=== PATIENT | male | born 1975 | race Caucasian/White ===

== ENCOUNTER 2020-01-26 16:29 | Emergency (ER) | payer OTHER, SELFPAY ==
--- NOTE | ~2020-01-26 | XR_ITS ---
EXAMINATION: XR knee RT min 4V DATE: 01/26/2020 17:12 INDICATION: Right knee pain, erythema and swelling TECHNIQUE: Anteroposterior, 2 oblique and crosstable lateral views of the right knee were obtained COMPARISON: None. FINDINGS: Alignment is normal. No fracture. No joint effusion/layering lipohemarthrosis. Prominent prepatellar soft tissue swelling. No soft tissue gas or radiopaque foreign bodies. No cortical erosions or perio steal reaction. IMPRESSION: 1. Prominent prepatellar soft tissue swelling of indeterminate etiology. No joint effusion or osseous abnormality. Reviewed, dictated and finalized at location A. IMPRESSION: 1. Prominent prepatellar soft tissue swelling of indeterminate etiology. No diego nt effusion or osseous abnormality.
--- NOTE | ~2020-01-26 | XR_ITS ---
EXAMINATION: XR hand RT min 3V DATE: 01/26/2020 17:12 INDICATION: Proximal anterior right hand pain with laceration TECHNIQUE: Posteroanterior, oblique and lateral views of the right hand were obtained. COMPARISON: Right third digit radiographs dated 10/09/2012 FINDINGS: There is extension of the fifth metacarpophalangeal joint and flexion at the fifth proximal interphal angeal joint which could be either positional or secondary to old trauma with similar alignment seen on the prior radiographs. Alignment is otherwise normal. No fracture. Joint spaces are normal. Mild s oft tissue swelling dorsal to the third metacarpophalangeal joint. No radiopaque foreign bodies. IMPRESSION: 1. No fracture or radiopaque foreign body. Reviewed, dictated and finalized at location A.
[2020-01-26 16:33] VITALS: BP 126/83; PULSE 90; RESP 16; TEMP 35.4; O2SAT 99
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
[2020-01-26 17:38] VITALS: BP 120/88; PULSE 70; RESP 12; TEMP 36.6; O2SAT 98
[2020-01-26] MEDS: KETOROLAC 30 MG/ML VIAL (*BKC) IV PUSH (17:54)
[2020-01-26 18:06] LABS: Basophils Percent Auto 0.6 % (0.2-1.2); Eosinophils Absolute Auto 0.1 K/mm3 (0-0.3); Eosinophils Percent Auto 1.6 % (0-4.4); Hemoglobin 13.8 g/dL (14.0-18.0); Immature Granulocyte Absolute 0.02 K/mm3 (0.00-0.031); Immature Granulocyte Percent A 0.4 % (0-0.5); Immature Platelet Fraction Pct 6.3 % (0.9-11.2); Lymphocytes Absolute Auto 1.06 K/mm3 (0.9-3.2); Lymphocytes Percent Auto 20.7 % (18.3-44.2); Mean Corpuscular HGB Conc 34.5 g/dl (32-36); Mean Corpuscular Hemoglobin 34.7 pg (26-34); Mean Corpuscular Volume 100.5 fl (80-100); Mean Platelet Volume 10.6 fl (7.4-10.4); Monocytes Absolute Auto 0.5 K/mm3 (0.1-0.6); Monocytes Percent Auto 9.6 % (2.6-8.5); Neutrophils Absolute Auto 3.4 K/mm3 (1.3-6.7); Neutrophils Percent Auto 67.1 % (45.5-73.1); Platelet Count Result 138 k/mm3 (150-375); Red Blood Count 3.98 M/mm3 (4.6-6.20); Red Cell Distribution Width 11.3 % (11.5-14.5); White Blood Count 5.1 K/mm3 (4.5-10.0)
[2020-01-26 18:18] LABS: Anion Gap 12 mmol/L (8-16); Blood Urea Nitrogen 14 mg/dL (9-20); CRP 2.4 mg/dL (<1.0); Carbon Dioxide 30 mmol/L (22-30); Chloride 94 mmol/L (98-107); Estimated CRCL calculation 126 ml/min; Estimated Glomerular Filt Rate > 60; Glucose 116 mg/dL (75-110); Potassium 3.1 mmol/L (3.4-5.0); Sodium 136 mmol/L (137-145)
[2020-01-26 18:38] LABS: Erythrocyte Sedimentation Rate 11 mm/hr (0-20)
[2020-01-26] MEDS: POTASSIUM CHLORIDE 20 MEQ TABLET 40 MEQ PO (18:50)
--- NOTE | 2020-01-26 19:15 | PC.NURSE ---
Assumed care of pt at this time. report from RUBY [place]
[2020-01-26 19:30] VITALS: BP 134/88; PULSE 88; RESP 17; O2SAT 99
[2020-01-26] MEDS: SILVER SULFADIAZINE 1% CR 50 GM JAR (*BKC) 1 APPLIC TOPICAL (19:49)
[2020-01-26 21:00] VITALS: BP 133/82; PULSE 90; RESP 19; O2SAT 97
== END 2020-01-26 21:00 | disposition home or self-care (01) ==
PROVIDERS: Physician Assistant; Emergency Provider Emergency Medicine; PCP Emergency Medicine
DX: M70.41 Prepatellar bursitis, right knee (principal)
CPT/HCPCS: 36415; 73130; 73564; 80048; 85025; 85055; 85652; 86140; 96365; 96375; 99284; A9270; J0696; J1885

== ENCOUNTER 2020-04-17 13:40 | Emergency (ER) | payer OTHER, SELFPAY ==
[2020-04-17] VITALS (11 sets, daily range): BP systolic 136; BP diastolic 86–110; PULSE 84–120; RESP 10–32; TEMP 36.1; O2SAT 77–100
--- NOTE | ~2020-04-17 | CT_ITS ---
EXAMINATION: CT brain wo con EXAM DATE: 04/17/2020 14:02 INDICATION: Seizure . Confusion. Facial abrasion. TECHNIQUE: Spiral CT of the head was performed without contrast. Axial, coronal and sagittal images were reviewed. The dose-length product (DLP) for this examination was 605.33 mGy-cm. The exposure w as tailored according to patient size, and iterative reconstruction (ASIR) was used as additional dos e reduction technique. There is no prior study for comparison. FINDINGS: There is no acute intraparenchymal hemorrhage. No evidence of intraparenchymal brain mass lesion. No evidence of acute infarction. There is no mass effect or midline shift. The ventricles are normal in size. There are no extra-axial collections. There are no acute calvarial fractures. T he orbits are unremarkable. Soft tissue is unremarkable. The visualized sinuses and mastoid air lupis ls are well aerated. IMPRESSION: 1. No acute intracranial findings. Reviewed, dictated and finalized at location A. [employer]IVE SERVICE TECHNICIAN
--- NOTE | 2020-04-17 13:48 | ED.SEIZURE ---
HPI - Seizure General Chief Complaint: Altered Mental Status Stated Complaint: combative History of Present Illness HPI Narrative: 44 yo male w/ h/o seizures presents to the ED for seizures. He reportedly had 2 witnessed seizures throughout the course of the day. Each one was proceded by him snorting methamphetamine. He also reports that he has not slept or eaten in days. He has a h/o seizures which his PCP is treating with CBD oil. He has never seen a neurologist. During his seizures today he did hit his head and has multiple painful swollen and bruised areas. When EMS arrived he was confused and combative. Related Data Allergies Allergy/AdvReac Type Severity Reaction Status Date / Time Penicillins Allergy Intermediate Unknown Verified 04/17/20 14:02 Review of Systems Review of Systems: All systems reviewed & are unremarkable except as noted in HPI and below Constitutional: Constitutional: Denies fever(s) and Denies weakness Eyes: Eyes: Denies change in vision ENT: Denies sore throat Cardiovascular: Cardiovascular: Denies chest pain Respiratory: Respiratory: Denies dyspnea Gastrointestinal: Gastrointestinal: Denies abdominal pain and Denies nausea Musculoskeletal: Musculoskeletal: Denies back pain Neurologic: Denies dizziness, Reports headache(s) and Denies weakness Psychiatric: Psychiatric: Denies depression [facility] Past Medical History Medical History (Updated 04/23/20 @ 13:07 by Valdemar Zimmerman MD) Seizure Family History Family History (Updated 06/10/18 @ 00:00 by CONVUSER A) Mother Depression Family history of type 2 diabetes mellitus Social History Social History (Updated 01/26/20 @ 17:01 by Huong Cordova PA-C) Smoking status: Current every day smoker Substance use: current Substance use type: marijuana Exam Const: General: no acute distress and alert Nutritional Appearance: thin Orientation/consciousness: patient oriented x3 HENMT: Head: contusion (Multiple) Ears: TM's normal bilaterally Eyes: Conjunctivae: conjunctivae normal Pupils: Equal, round and reactive pupils present EOM: EOMs intact bilaterally Neck: Neck: normal visual inspection Resp: Effort & Inspection: normal respiratory effort Auscultation: clear to auscultation bilaterally Cardio: Rate: tachycardic Rhythm: regular rhythm GI: GI Palp: Yes Soft to palpation and No Tenderness to palpation present (GI) Back/Spine/Pelvis: Other: nontender Skin: Wounds: no wounds Neuro: General: patient oriented x3, moves all extremities, no meningeal signs, no focal motor deficits and CN's II-XI intact bilaterally Cranial nerves: Yes Nystagmus not present Speech: normal speech Gait exam (Neuro): Normal gait present Extrem: General: normal to inspection Psych: Mental Status: mental status grossly normal Affect: normal affect Attitude: cooperative Thought content: Yes Normal thought content present Course Vital Signs Vital signs: Vital Signs Pulse Rate 119 H 04/17/20 13:51 Respiratory Rate 17 04/17/20 13:51 Pulse Oximetry 77 L 04/17/20 13:51 Temperature 36.1 C L 04/17/20 13:56 Pulse Rate 84 04/17/20 15:43 Respiratory Rate 10 L 04/17/20 15:43 Blood Pressure 136/86 04/17/20 15:43 Pulse Oximetry 100 04/17/20 15:43 MDM - Seizure MDM Narrative Medical decision making narrative: He had multiple factors lowering his seizure threshhold which I discussed with him. I loaded him with Keppra and discussed these case with Dr. Mata. He agrees with continuing the Keppra and having him follow-up in clinic. Differential Diagnosis Differential diagnosis: Likely generalized seizure and epileptic seizure Medical Records Attestation: I reviewed the patient's medical records. Lab Data Attestation: I reviewed the patient's lab results. Result diagrams: 04/17/20 14:15 04/17/20 14:15 Labs: Lab Results 04/17/20 04/17/20 04/17/20 Range/Units 14:15 14:15 14:1
[2020-04-17] MEDS: levETIRAcetam 1000MG/NACL100ML 1,000 MG/100 ML BAG 400 MG IVPB (14:19)
[2020-04-17] MEDS: SODIUM CHLORIDE 0.9% IV 1,000 ML 999 ML IV CONT (14:19)
[2020-04-17 14:25] LABS: Basophils Percent Auto 0.4 % (0.2-1.2); Eosinophils Percent Auto 0.2 % (0-4.4); Hematocrit 39.5 % (42.0-52.0); Hemoglobin 14.1 g/dL (14.0-18.0); Immature Granulocyte Absolute 0.01 K/mm3 (0.00-0.031); Immature Granulocyte Percent A 0.2 % (0-0.5); Immature Platelet Fraction Pct 7.9 % (0.9-11.2); Lymphocytes Absolute Auto 0.59 K/mm3 (0.9-3.2); Lymphocytes Percent Auto 11.8 % (18.3-44.2); Mean Corpuscular HGB Conc 35.7 g/dl (32-36); Mean Corpuscular Hemoglobin 34.6 pg (26-34); Mean Corpuscular Volume 96.8 fl (80-100); Mean Platelet Volume 10.4 fl (7.4-10.4); Monocytes Absolute Auto 0.5 K/mm3 (0.1-0.6); Monocytes Percent Auto 9.6 % (2.6-8.5); Neutrophils Absolute Auto 3.9 K/mm3 (1.3-6.7); Neutrophils Percent Auto 77.8 % (45.5-73.1); Platelet Count Result 93 k/mm3 (150-375); Red Blood Count 4.08 M/mm3 (4.6-6.20); Red Cell Distribution Width 12.8 % (11.5-14.5)
[2020-04-17 14:32] LABS: INR 1.1; Prothrombin Time 14.5 Seconds (11.1-14.7)
[2020-04-17 14:33] LABS: Partial Thromboplastin Time 27.4 SECONDS (22.3-36.8)
[2020-04-17 14:35] LABS: Alanine Aminotransferase 114 U/L (4-50); Albumin Level 4.8 g/dL (3.5-5.1); Alkaline Phosphatase 90 U/L (38-126); Anion Gap 13 mmol/L (8-16); Aspartate Amino Transferase 156 U/L (17-59); Bilirubin,Total 2.1 mg/dL (0.2-1.3); Blood Urea Nitrogen 14 mg/dL (9-20); Carbon Dioxide 29 mmol/L (22-30); Chloride 94 mmol/L (98-107); Estimated CRCL calculation 107 ml/min; Estimated Glomerular Filt Rate > 60; Glucose 103 mg/dL (75-110); Sodium 136 mmol/L (137-145)
[2020-04-17 15:49] LABS: Add Urine Microscopic? YES; Appearance Urine Clear (Clear); Bacteria Urine Trace /hpf; Bilirubin Urine Negative (Negative); Blood Urine Negative (Negative); Color Urine Amber (Yellow); Glucose Urine UA Negative (Negative); Ketones Urine 1+ mg/dL (Negative); Leukocyte Esterase Ur Negative LEU/UL (Negative); Mucus Urine Moderate /lpf; Nitrate Urine Negative (Negative); Protein Urine 2+ mg/dL (Negative); Specific Grav Ur 1.026 (1.001-1.035); WBC Urine 16-20 /hpf
[2020-04-17 16:02] LABS: Barbiturate Screen Urine Negative (Negative); Benzodiazepines Screen Urine Negative (Negative)
[2020-04-17 16:05] LABS: Cannabinoid Screen Urine Positive (Negative); Cocaine Screen Urine Negative (Negative); Methadone Screen Urine Negative (Negative); Opiate Screen Urine Negative (Negative); Phencyclidine Screen Urine Negative (Negative)
[2020-04-17 16:23] LABS: Amphetamine Screen Urine Positive (Negative)
== END 2020-04-17 17:22 | disposition home or self-care (01) ==
PROVIDERS: Emergency Provider Emergency Medicine; PCP Emergency Medicine
DX: R56.9 Unspecified convulsions (principal); F17.200 Nicotine dependence, unspecified, uncomplicated; F15.90 Other stimulant use, unspecified, uncomplicated
CPT/HCPCS: 36415; 70450; 80053; 80307; 81001; 85025; 85055; 85610; 85730; 87086; 87088; 96365; 99284; J1953; J7030

== ENCOUNTER 2020-07-29 17:44 | Emergency (ER) | payer OTHER, SELFPAY ==
[2020-07-29 17:50] VITALS: BP 176/126; PULSE 136; RESP 28; TEMP 36.4; O2SAT 100
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
[2020-07-29 18:17] VITALS: BP 128/74; PULSE 84; RESP 17; O2SAT 99
[2020-07-29 18:40] VITALS: BP 136/70; PULSE 84; RESP 17; O2SAT 98
== END 2020-07-29 18:30 | disposition left against medical advice (07) ==
PROVIDERS: Emergency Provider Emergency Medicine; PCP Emergency Medicine
DX: T40.2X1A Poisoning by other opioids, accidental (unintentional), initial encounter (principal); F17.200 Nicotine dependence, unspecified, uncomplicated
CPT/HCPCS: 99281

== ENCOUNTER 2020-08-19 02:50 | Emergency (ER) | payer OTHER, SELFPAY ==
[2020-08-19 02:49] VITALS: BP 126/91; PULSE 100; RESP 15; TEMP 37.3; O2SAT 97
[2020-08-19 02:55] VITALS: BP 126/91; PULSE 122; RESP 16; TEMP 37.3; O2SAT 97
--- NOTE | 2020-08-19 02:58 | PC.NURSE ---
Pt presents to ED with complaints of seizure activity. Pt noted to have x1 seizure 0215. Pt states he does not remember what happened. Per ems, pt noted to suddenly begin shaking violently and then tensed up. Pt unsure if he hit his head during seizure. Girlfriend was the witness. Per EMS seizure lasted less than 2 minutes. Pt noted to be alert and oriented x3 and pt states at baseline he is confused. Family presented to ED. Girlfriend states pt has been vomiting all day. States pt was sitting in a recliner at time of onset and denies pt hitting floor or head injury. States activity lasted approx 2-3 minutes. Per girlfriend, pt pcp advised pt to stop taking seizure medications last week and she is unsure as to why. Pt states he was advised to stop seizure medication because it was upsetting his stomach. Adds that pcp was supposed to change med and never did, never contacted him and he has not been able to get in contact with pcp. Pt noted to be alert to baseline per girlfriend. Pt complains of nausea at this time. Vitals are stable and pt in no obvious distress at this time. Call button and personal items within reach. Advised to press call button for assistance.
--- NOTE | 2020-08-19 03:01 | ECG_ITS ---
Measurements Intervals [place] Rate: 109 P: 67 MI: 153 QRS: 49 QRSD: 87 T: 45 QT: 368 QTc: 497 Interpretive Statements SINUS TACHYCARDIA NONSPECIFIC ST & T-WAVE ABNORMALITY- DIIFFUSE LEADS BASELINE ARTIFACT- AVR, AVL, AVF ABNORMAL ECG Electronically Signed On 08-20-2020 7:14:24 CDT by Willem Ballard D.O.
--- NOTE | 2020-08-19 03:05 | PC.NURSE ---
Seizure pads placed when pt arrived to ED>
--- NOTE | 2020-08-19 03:19 | ED.SEIZURE ---
HPI - Seizure General Chief Complaint: Seizure Stated Complaint: seizure Time Seen by Provider: 08/19/20 03:18 Source: patient Mode of arrival: ambulatory Limitations: no limitations History of Present Illness HPI Narrative: Patient is a 44-year-old male brought in by EMS due to seizure, single episode, witnessed by girlfriend, lasted for less than 2 minutes. Girlfriend states that the seizure was generalized, tonic-clonic. Denies any urinary or bowel incontinence. Patient states that he used to take Keppra but his doctor took him off of it. Patient does not want any lab work or radiologic studies done. Patient refused any work-up and wants to go home. Patient is alert and oriented x4. Seizure History: Yes Related Data Allergies Allergy/AdvReac Type Severity Reaction Status Date / Time Penicillins Allergy Intermediate Unknown Verified 07/29/20 17:55 Review of Systems Review of Systems: All systems reviewed & are unremarkable except as noted in HPI and below Constitutional: Constitutional: Denies body ache(s), Denies chills, Denies excessive sweating, Denies fatigue, Denies fever(s), Denies headache(s), Denies lethargy, Denies malaise, Denies weakness and Denies weight loss Eyes: Eyes: Denies blurry vision, Denies change in vision and Denies loss of vision ENT: Denies dizziness, Denies ear discharge, Denies headache(s), Denies lip swelling, Denies epistaxis, Denies nasal congestion, Denies neck pain, Denies throat swelling and Denies tongue swelling Cardiovascular: Cardiovascular: Denies chest pain, Denies chest pain at rest, Denies chest pain with activity, Denies diaphoresis, Denies rapid heart rate, Denies edema, Denies irregular heart rhythm, Denies lightheadedness, Denies palpitations, Denies dyspnea and Denies dyspnea on exertion Respiratory: Respiratory: Denies chest congestion, Denies cough, Denies hemoptysis, Denies dyspnea and Denies dyspnea on exertion Gastrointestinal: Gastrointestinal: Denies abdominal pain, Denies melena, Denies hematochezia, Denies diarrhea, Denies nausea, Denies vomiting and Denies hematemesis Musculoskeletal: Musculoskeletal: Denies abnormal gait, Denies deformity, Denies joint swelling, Denies limited range of motion, Denies neck pain and Denies numbness Neurologic: Denies Abnormal speech present, Denies abnormal gait, Denies confusion, Denies dizziness, Denies headache(s), Denies focal weakness, Denies loss of vision, Denies numbness, Denies Other visual disturbances, Denies Sensory deficit (Neuro) and Denies weakness Psychiatric: Psychiatric: Denies confusion, Denies depression, Denies auditory hallucinations, Denies homicidal ideation and Denies suicidal ideation Endocrine: Endocrine: Denies cold intolerance, Denies excessive sweating, Denies fatigue, Denies heat intolerance and Denies palpitations Hematologic/Lymphatic: Hematologic/Lymphatic: Denies easy bleeding and Denies easy bruising Allergic/Immunologic: Allergic/Immunologic: Denies lip swelling, Denies throat swelling and Denies tongue swelling PMFSH Past Medical History Medical History Seizure Family History Family History Mother Depression Family history of type 2 diabetes mellitus Social History Social History Smoking status: Current every day smoker Substance use: current Substance use type: marijuana and opiates Gender identity (if verbalized by the patient): Male Exam Const: General: cooperative, healthy appearing, comfortable, no acute distress, well developed, alert and awake; No confusion Orientation/consciousness: oriented to person, oriented to place, oriented to time, patient oriented x3 and No confusion Limitations: no limitations HENMT: Head: normal to inspection, normocephalic and atraumatic Ears: hearing grossly normal bilaterally, T
--- NOTE | 2020-08-19 03:19 | PC.NURSE ---
Pt states he wants to leave AMA. EDMD and ED charge notified. EDMD at bedside to advise pt.
[2020-08-19 03:39] VITALS: BP 121/82; PULSE 99; RESP 16; O2SAT 98
[2020-08-19 03:40] VITALS: BP 121/82; PULSE 99; RESP 16; O2SAT 98
== END 2020-08-19 03:40 | disposition left against medical advice (07) ==
PROVIDERS: Emergency Provider Emergency Medicine; PCP Emergency Medicine
DX: R56.9 Unspecified convulsions (principal); F17.200 Nicotine dependence, unspecified, uncomplicated; R00.0 Tachycardia, unspecified; R94.31 Abnormal electrocardiogram [ECG] [EKG]
CPT/HCPCS: 93005; 99283

== ENCOUNTER 2020-08-19 14:26 | Observation (INO) | payer OTHER, SELFPAY ==
[2020-08-19] VITALS (11 sets, daily range): BP systolic 100–132; BP diastolic 79–101; PULSE 72–124; RESP 15–23; TEMP 36.7; O2SAT 97–100; BMI 18.6
--- NOTE | ~2020-08-19 | CT_ITS ---
EXAMINATION: CT brain wo con DATE: 08/19/2020 19:42 INDICATION: Seizure TECHNIQUE: Computed tomography (CT) of the head was performed without intravenous contrast. Sagittal and coronal reconstructions were performed. The mA was adjusted according to patient size. Iterative reconstruction technique was employed. The dose-length product was 681.00 mGy-cm. COMPARISON: head CT dated 04/17/2020 FINDINGS: No acute intracranial hemorrhage, acute infarction or abnormal extra axial fluid collection. Ventricl es are normal and symmetric. No mass/mass effect. The orbits, paranasal sinuses and mastoid air cells are normal. IMPRESSION: 1. No acute intracranial process. Reviewed, dictated and finalized at location A.
--- NOTE | ~2020-08-19 | CT_ITS ---
EXAMINATION: CT abdomen pelvis wo con DATE: 08/20/2020 11:40 INDICATION: Thrombocytopenia TECHNIQUE: Computed tomography (CT) of the abdomen and pelvis was performed without intravenous contr ast. The dose-length product was 284.91 mGy-cm. Automated exposure control and iterative reconstructi on technique were employed. COMPARISON: CT dated 10/12/2011 FINDINGS: Lung bases are unremarkable. Heart size normal. No significant pleural or pericardial effus ion. No significant vascular abnormality. No lymphadenopathy. Fatty infiltration of the liver. Mild enlargement of the liver. Calcified granuloma right middle lobe . The spleen, pancreas, adrenal glands and kidneys are unremarkable. Nonobstructive bowel gas pattern . No lytic or blastic lesions are seen. No acute osseous abnormality. Colonic diverticulosis without evidence for diverticulitis. Gallbladder is mildly distended. IMPRESSION: 1. Hepatomegaly with fatty infiltration of the liver. Reviewed, dictated and finalized at location B.
--- NOTE | 2020-08-19 14:44 | ECG_ITS ---
Measurements Intervals [place] Rate: 86 P: 72 [place]: 163 QRS: -1 QRSD: 108 T: 61 QT: 407 QTc: 488 Interpretive Statements SINUS RHYTHM INCOMPLETE RIGHT BUNDLE BRANCH BLOCK BASELINE ARTIFACT- II, III, AVF BORDERLINE ECG Electronically Signed On 08-19-2020 15:07:33 CDT by Willem Ballard D.O.
--- NOTE | 2020-08-19 15:00 | PC.NURSE ---
Arrives via EMS, s/p x2 days N/V today with diarrhea, recent syncopal -like episodes, concerned and called medics. Pt reports heavy daily drinker and also takes Vicodin, I tried taking a shot today but I couldn't , reports shakes when stopping ETOH. +epigastric discomfort , mild HILL, denies hallucinations, denies skin crawling sensation but I get goosebumps a lot
[2020-08-19 16:09] LABS: Hematocrit 43.7 % (42.0-52.0); Hemoglobin 15.2 g/dL (14.0-18.0); Mean Corpuscular HGB Conc 34.8 g/dl (32-36); Mean Corpuscular Hemoglobin 35.1 pg (26-34); Mean Corpuscular Volume 100.9 fl (80-100); Mean Platelet Volume 11.1 fl (7.4-10.4); Platelet Count Result 43 k/mm3 (150-375); Red Blood Count 4.33 M/mm3 (4.6-6.20)
[2020-08-19 16:39] LABS: Add Urine Microscopic? YES; Appearance Urine Cloudy (Clear); Bacteria Urine Trace /hpf; Bilirubin Urine 2+ (Negative); Blood Urine Negative (Negative); Color Urine Amber (Yellow); Glucose Urine UA Negative (Negative); Ketones Urine Negative (Negative); Leukocyte Esterase Ur Negative LEU/UL (Negative); Mucus Urine Few /lpf; Nitrate Urine Negative (Negative); Protein Urine 3+ mg/dL (Negative); Squamous Epithelial Cell Urine Rare /hpf (Few); WBC Urine 0-3 /hpf
[2020-08-19 16:44] LABS: Band Neutrophils Percent 4 % (0-6); Monocytes Absolute Manual 0.35 K/mm3 (0.1-0.90); Monocytes Percent Manual 7 % (3-9); Neutrophils Absolute Manual 3.85 K/mm3 (1.3-6.7); Neutrophils Percent Manual 73 % (46-73); Total Cells Counted 100
[2020-08-19 16:45] LABS: Platelet Estimate Decreased (Adequate)
[2020-08-19 16:46] LABS: Specific Grav Ur 1.032 (1.001-1.035)
[2020-08-19] MEDS: LORazepam INJ (*CRX) 2 MG/ML VIAL 1 MG IV PUSH (17:00)
[2020-08-19] MEDS: levETIRAcetam 1000MG/NACL100ML 1,000 MG/100 ML BAG 400 MG IVPB (17:00)
[2020-08-19 17:47] LABS: Amphetamine Screen Urine Negative (Negative); Barbiturate Screen Urine Negative (Negative); Benzodiazepines Screen Urine Negative (Negative); Cannabinoid Screen Urine Positive (Negative); Cocaine Screen Urine Negative (Negative); Methadone Screen Urine Negative (Negative); Opiate Screen Urine Positive (Negative); Phencyclidine Screen Urine Negative (Negative)
[2020-08-19] MEDS: THIAMINE HCL INJ 100 MG, FOLIC ACID INJ 1 MG, MULTIVITAMINS-12 INJ VIAL 1 5 ML, MULTIVI... 999 MG IV CONT (17:47)
--- NOTE | 2020-08-19 18:00 | PC.NURSE ---
Pt trying to leave to smoke a cigarette outside, states he cannot stay in bed. Educated pt and he received medications that made him sleepy and not safe to ambulate. Receiving banana bag
[2020-08-19 18:16] LABS: Alanine Aminotransferase 35 U/L (4-50); Alkaline Phosphatase 109 U/L (38-126); Anion Gap 10 mmol/L (8-16); Aspartate Amino Transferase 121 U/L (17-59); Bilirubin,Total 3.1 mg/dL (0.2-1.3); Blood Urea Nitrogen 13 mg/dL (9-20); Calcium 9.9 mg/dL (8.4-10.2); Carbon Dioxide 38 mmol/L (22-30); Chloride 87 mmol/L (98-107); Estimated CRCL calculation 120 ml/min; Estimated Glomerular Filt Rate > 60; Glucose 96 mg/dL (75-110); Lipase 57 U/L (23-300); Potassium 2.7 mmol/L (3.4-5.0); Sodium 135 mmol/L (137-145)
[2020-08-19] MEDS: POTASSIUM CHLORIDE 20 MEQ PACKET (FOR LIQUID) 40 MEQ PO (19:02)
[2020-08-19 19:04] LABS: Ethanol < 10 mg/dL (<10); Magnesium 1.9 mg/dL (1.6-2.3); Phosphorus 1.5 mg/dL (2.5-4.5)
--- NOTE | 2020-08-19 20:42 | ED.SEIZURE ---
HPI - Seizure General Chief Complaint: Seizure Stated Complaint: Seizure Time Seen by Provider: 08/19/20 16:13 Source: patient, family, EMS and RN notes reviewed Mode of arrival: EMS Limitations: no limitations History of Present Illness HPI Narrative: Patient is a 44-year-old male who returns back to emergency department after sustaining a second seizure patient was seen at 3 AM in the morning at [facility] after having a seizure. Patient admits to alcohol abuse and fentanyl abuse and historically has had polysubstance abuse issues and noncompliance patient has been seen for seizures before in the emergency department and overdoses has never followed up or been compliant with medications patient notes for the last 2 days he has been vomiting. On arrival patient denies any pain and is with normal mentation Seizure History: Yes Related Data Allergies Allergy/AdvReac Type Severity Reaction Status Date / Time Penicillins Allergy Intermediate Unknown Verified 07/29/20 17:55 Review of Systems Review of Systems: All systems reviewed & are unremarkable except as noted in HPI and below PMFSH Past Medical History Medical History Seizure Family History Family History Mother Depression Family history of type 2 diabetes mellitus Social History Social History Smoking status: Current every day smoker Substance use: current Substance use type: marijuana and opiates Gender identity (if verbalized by the patient): Male Exam Narrative: Exam Narrative: GENERAL: Ill-appearing, well-nourished, and in no acute distress. HEAD: Normocephalic, atraumatic. EYES: PERRLA and EOMI. ENT: Nares clear, no rhinorrhea or epistaxis. Mucous membranes moist. NECK: Supple. No adenopathy or masses. No carotid bruits or JVD CHEST: Clear to auscultation. No respiratory distress. No wheezes rales or rhonchi HEART: Regular rate and rhythm. No murmur heard. Normal peripheral pulses. ABDOMEN: Soft, nontender, nondistended EXTREMITIES: Normal range of motion. No edema. SKIN: Warm, dry, no rash. NEURO: No focal deficits. Alert and oriented x3. Cranial nerves II through XII grossly intact PSYCH: Normal mood and affect. Course Course Emergency Course: Patient evaluated for seizures found to have hyponatremia hypophosphatemia patient had replacement of his potassium was hydrated given a banana bag and given Keppra will be brought into the hospital placed in the IMCU unclear at this time whether or not the patient is having withdraws or he has seizures secondary to untreated seizures. Patient ABCs and vital signs intact. Patient agrees to stay in hospital. Discussions were made with the hospitalist and neurology who agreed to accept and consult on the patient Consultations Consultation #1: Discussed the case with neurology Dr. Mata who has agreed to consult on patient Date: 08/19/20 Time: 20:48 Consultation #2: Discussed case with Mary Jo and Dr. Bartlett and who agreed to accept the patient Date: 08/19/20 Time: 20:48 Vital Signs Vital signs: Vital Signs Temperature 98.0 F 08/19/20 14:33 Pulse Rate 107 H 08/19/20 14:33 Respiratory Rate 23 H 08/19/20 14:33 Blood Pressure 127/101 H 08/19/20 14:33 Pulse Oximetry 98 08/19/20 14:33 Temperature 98.0 F 08/19/20 14:33 Pulse Rate 80 08/19/20 17:48 Respiratory Rate 17 08/19/20 17:48 Blood Pressure 112/87 08/19/20 17:48 Pulse Oximetry 97 08/19/20 17:48 MDM - Seizure MDM Narrative Medical decision making narrative: Patient in the room at this time in no distress aware of case findings treatment plan and diagnosis agreeing to stay in hospital for his electrolyte derangement and seizures. Patient has had hydration and replacement of electrolytes and given Keppra in the emergency department. Lab Da
[2020-08-20] VITALS (17 sets, daily range): BP systolic 100–124; BP diastolic 52–81; PULSE 60–100; RESP 16–20; TEMP 35.1–37.3; O2SAT 96–100; BMI 18.6
--- NOTE | 2020-08-20 00:45 | PM.IMHP ---
H&P: HPI History of Present Illness Date/Time: 08/20/20 00:45 Chief Complaint: Seizure Narrative: 44-year-old male with past medical history of seizure disorder since childhood and chronic alcoholism who presented to the ER with a breakthrough seizure. The patient states that his primary care physician. His Keppra about 3 weeks ago due to concerns about his kidney function. He was evidently supposed to follow-up with a neurologist regarding his seizures but failed to do so. He reports that he had a seizure so bad that he busted up his face and mouth and did not feel like going to the neurologist the following day. The patient reports that he drinks about a 5th of alcohol a day. He has been trying to cut back his alcohol consumption for the last 4-5 days. Since he has been cutting back on his alcohol consumption he has been having an increased number of seizures. He had a seizure around 3:00 a.m. and was evaluated in the ER at which time he left AMA without allowing the staff to draw labs or provide him with medications. His fiancee called EMS again this afternoon when he had a recurrence seizure. The patient had evidently been standing up when he suddenly collapsed and had a tonic-clonic seizure. The link the seizure is unknown. When the patient came out a seizure he was postictal and confused, alert oriented x1 and was uncooperative with EMS. When he arrived to the ER the patient was initially refusing evaluation. He eventually agreed to have labs drawn and was given a dose of Keppra 1 g IV. He had a CT scan of his head which was negative for acute process. He received a dose of Ativan in the ER and had no further seizure activity. The patient reports that he has chronic pain in his left elbow and S2 where below the waist. He will get opiates from friends ?here and there?. He reported trying methamphetamines 1 time and had a seizure and has not used methamphetamine since that time. He has had a history of occasional IV drug use. He denies any IV drug use and recent months. He reported having vomiting and diarrhea to the ER staff. Did not mention any vomiting and diarrhea at the time of my evaluation. Although the patient reports that his Keppra was discontinued due to function and it appears that the patient's kidney function has never been abnormal at least not since 2009. I suspect his Keppra may have been discontinued due to thrombocytopenia or elevated transaminases. Unfortunately I think the patient's elevated transaminases and thrombocytopenia is due to his chronic alcohol abuse. Review of Systems Review of Systems: Narrative: 12 systems were reviewed with pertinent positives and negatives per HPI. Except as documented in the HPI, all other systems were reviewed and are negative. [facility] Past Medical History Medical History (Updated 08/20/20 @ 01:08 by Andie Davila DO) Alcohol abuse Alcohol abuse Opiate abuse, episodic Seizure disorder Tobacco abuse disorder Surgical History Surgical History (Updated 08/20/20 @ 01:08 by Andie Davila DO) History of exploratory laparotomy With partial large and small bowel resection and partial liver resection due to trauma Status post open reduction with internal fixation of fracture Left humerus Family History Family History (Updated 08/20/20 @ 01:09 by Andie Davila DO) Mother Lupus (systemic lupus erythematosus) Depression Family history of type 2 diabetes mellitus COPD (chronic obstructive pulmonary disease) Gall bladder disease Daughter Schizophrenia Sibling DVT (deep venous thrombosis) Social History Social History (Updated 08/20/20 @ 01:42 by Andie Davila DO) Social History: He currently lives with his fiancee of 2 years. He has 4 children ranging from age 23 downed age 10. His oldest daughter, who is 10 years old, is currently staying with his mother. He used to smoke up to 2 and half packs of cigarettes per day. He started smoking at age
[2020-08-20] MEDS: LACTATED RINGERS 1,000 ML 75 ML IV CONT ×2 (01:26→20:32)
[2020-08-20] MEDS: POTASSIUM PHOS,M-BASIC-D-BASIC 20 MMOL in SODIUM CHLORIDE 0.9% IV 250 ML 62.5 MMOL IVPB (01:27)
--- NOTE | 2020-08-20 02:09 | ADMGEN ---
This patient, Boom Saravia, was admitted to IMU Room 202-01 on 08/19/20 at 2324. Patient/family oriented to hospital policies and general routines including ID bracelet, bed and alarms, visiting hours, pain management, procedures, bathroom and other care routines, personal items, smoking policy, room service/diet, and visiting hours. Information on how to activate the Rapid Response Team has been discussed. Patient/Family are encouraged to report perceived risks to care and to ask questions if they do not understand what they are told or what they should do.
[2020-08-20] MEDS: chlordiazePOXIDE (*CRX) 25 MG CAPSULE PO ×3 (02:31→20:34)
[2020-08-20] MEDS: TAPENTADOL HCL (*CRX) 50 MG TABLET PO ×2 (02:54→12:49)
[2020-08-20] MEDS: NICOTINE (*PBKC) 21 MG PATCH 1 PATCH TRANSDERM (05:23)
[2020-08-20 05:28] LABS: Basophils Percent Auto 0.9 % (0.2-1.2); Eosinophils Absolute Auto 0.1 K/mm3 (0-0.3); Eosinophils Percent Auto 1.8 % (0-4.4); Hemoglobin 14.8 g/dL (14.0-18.0); Immature Granulocyte Absolute 0.02 K/mm3 (0.00-0.031); Immature Granulocyte Percent A 0.4 % (0-0.5); Immature Platelet Fraction Pct 18.9 % (0.9-11.2); Lymphocytes Absolute Auto 1.35 K/mm3 (0.9-3.2); Lymphocytes Percent Auto 30.3 % (18.3-44.2); Mean Corpuscular HGB Conc 34.4 g/dl (32-36); Mean Corpuscular Volume 101.7 fl (80-100); Mean Platelet Volume 11.8 fl (7.4-10.4); Monocytes Absolute Auto 0.3 K/mm3 (0.1-0.6); Monocytes Percent Auto 7.6 % (2.6-8.5); Neutrophils Absolute Auto 2.6 K/mm3 (1.3-6.7); Platelet Count Result 37 k/mm3 (150-375); Red Blood Count 4.23 M/mm3 (4.6-6.20); Red Cell Distribution Width 11.9 % (11.5-14.5); White Blood Count 4.5 K/mm3 (4.5-10.0)
[2020-08-20 05:35] LABS: Magnesium 2.1 mg/dL (1.6-2.3); Phosphorus 3.8 mg/dL (2.5-4.5)
[2020-08-20 05:36] LABS: Alanine Aminotransferase 31 U/L (4-50); Albumin Level 4.6 g/dL (3.5-5.1); Alkaline Phosphatase 102 U/L (38-126); Anion Gap 9 mmol/L (8-16); Aspartate Amino Transferase 121 U/L (17-59); Bilirubin,Total 3.2 mg/dL (0.2-1.3); Blood Urea Nitrogen 9 mg/dL (9-20); Calcium 9.2 mg/dL (8.4-10.2); Carbon Dioxide 32 mmol/L (22-30); Chloride 95 mmol/L (98-107); Estimated CRCL calculation 119 ml/min; Estimated Glomerular Filt Rate > 60; Glucose 77 mg/dL (75-110); Potassium 3.5 mmol/L (3.4-5.0); Sodium 136 mmol/L (137-145)
[2020-08-20 06:28] LABS: Hepatitis B Surface Antigen Negative (Negative)
[2020-08-20 06:34] LABS: HAV RESULT Negative (Negative); Hepatitis B Core IgM Result Negative (Negative)
[2020-08-20 06:45] LABS: Hepatitis C Virus Antibody Negative (Negative)
[2020-08-20 08:39] LABS: Prothrombin Time 14.2 Seconds (11.1-14.7)
[2020-08-20 08:41] LABS: Partial Thromboplastin Time 28.8 SECONDS (22.3-36.8)
[2020-08-20] MEDS: levETIRAcetam Tablet 250 MG, levETIRAcetam Tablet 500 MG 750 MG PO ×2 (08:56→20:33)
[2020-08-20] MEDS: FOLIC ACID 1 MG TABLET PO (08:56)
[2020-08-20] MEDS: THIAMINE HCL 100 MG TABLET PO (08:56)
--- NOTE | 2020-08-20 09:17 | PM.IMPN ---
Progress Note: A&P Assessment and Plan (1) Thrombocytopenia: Code(s): D69.6 - Thrombocytopenia, unspecified Status: Acute Assessment and Plan: Patient's platelet count this morning was 37,000 which is quite a bit lower than he was last year -could be due to alcoholism, patient plans to slowly wean down. -will check CT of the abdomen pelvis, B12, folate, TSH, platelet antibody, and HIV -discussed with the patient his risk of bleeding with this (2) Breakthrough seizure: Code(s): G40.919 - Epilepsy, unspecified, intractable, without status epilepticus Status: Acute Assessment and Plan: He has not been taking his medications and he has abruptly stop drinking alcohol in the past which causes seizures -Keppra started (this was previously stopped by PCP) -consider adding gabapentin for neuropathy which may also help with seizures. Await neurology's recommendations (3) Elevated AST (SGOT): Code(s): R74.01 - Elevation of levels of liver transaminase levels Status: Acute Assessment and Plan: Due to alcoholism -await CT of the liver -hepatitis panel negative (4) Alcohol abuse: Code(s): F10.10 - Alcohol abuse, uncomplicated Status: Acute Assessment and Plan: Discussed slowly weaning off oxygen verses Librium treatment. - The patient does not think he will be able to quit drinking while taking the Librium and is going to wean off alcohol. He has done this before. - He also goes to [facility]. - CIWA 6 this morning with no evidence of withdraw on exam. -Continue librium and ativan while hospitalized. (5) Opiate abuse, episodic: Code(s): F11.10 - Opioid abuse, uncomplicated Status: Acute Assessment and Plan: Patient understands the risk of this -order HIV testing (6) Acute hypokalemia: Code(s): E87.6 - Hypokalemia Status: Acute Assessment and Plan: Likely due to alcoholism -replace, now 3.5 -assess again tomorrow (7) Hypophosphatemia: Code(s): E83.39 - Other disorders of phosphorus metabolism Status: Acute Assessment and Plan: Resolved, 3.8 today. (8) Tobacco abuse disorder: Code(s): Z72.0 - Tobacco use Status: Acute Assessment and Plan: Discussed quitting smoking Time Spent With Patient Time with patient: 25 - 35 minutes Subjective Date/time seen: 08/20/20 09:17 Interval history: Pt is a 44-YEAR-OLD MALE HERE FOR SEIZURES. Patient was seen today and states he feels okay. He has not had any seizures since being hospitalized. He states he usually has a prodrome right before he has the seizure. His only complaint is that he has a bit of pins and needles in his feet that have been going on for about a month. When asked, he was told by his primary care physician that he could try gabapentin but he never started it. He has a history of IV drug use but has never injected in his feet. I spoke to him about his thrombocytopenia and the current workup for that. He states that he would not be surprised if he had HIV . He has not had a COVID-19 vaccine. He denies chest pain or shortness of breath, fevers, chills, nausea, vomiting, headache, numbness or tingling to the upper extremities, no focal weaknesses, slurred speech or problems with walking. He has not had any hallucinations or tremors. Review of Systems Review of Systems: All systems reviewed & are unremarkable except as noted in HPI and below Exam Narrative: Exam Narrative: General: Well developed well nourished patient in NAD HEENT: normocephalic Neck: supple Neuro: Alert and oriented x4. Cranial nerves 2-12 intact. Equal strength the upper lower extremities 5/5. No tremors on exam CV:RRR. Telemetry shows no acute abnormalities. Resp:CTA Abd: Soft, non distended. No pain to palpation. Positive bowel sounds Extremities: No swelling, erythema, or pain to pal
[2020-08-20 09:47] LABS: HIV 1/2 Ab P24 Ag Result Negative (Negative)
[2020-08-20 10:10] LABS: Folic Acid 7.4 ng/mL (2.76->20)
[2020-08-20 16:35] LABS: Glucose Point of Care 79 (65-105)
[2020-08-21] VITALS: PULSE 63
[2020-08-21 02:00] VITALS: PULSE 64
[2020-08-21 04:00] VITALS: BP 115/65; PULSE 74; PULSE 75; RESP 16; TEMP 36.3; O2SAT 100
[2020-08-21] MEDS: chlordiazePOXIDE (*CRX) 25 MG CAPSULE PO (05:03)
[2020-08-21] MEDS: TAPENTADOL HCL (*CRX) 50 MG TABLET PO (05:05)
[2020-08-21 05:17] LABS: Hematocrit 40.2 % (42.0-52.0); Hemoglobin 13.8 g/dL (14.0-18.0); Mean Corpuscular HGB Conc 34.3 g/dl (32-36); Mean Corpuscular Hemoglobin 34.9 pg (26-34); Mean Corpuscular Volume 101.8 fl (80-100); Mean Platelet Volume 12.6 fl (7.4-10.4); Platelet Count Result 41 k/mm3 (150-375); Red Blood Count 3.95 M/mm3 (4.6-6.20); Red Cell Distribution Width 11.7 % (11.5-14.5)
[2020-08-21 05:32] LABS: Anion Gap 5 mmol/L (8-16); Blood Urea Nitrogen 9 mg/dL (9-20); Carbon Dioxide 32 mmol/L (22-30); Chloride 100 mmol/L (98-107); Estimated CRCL calculation 119 ml/min; Estimated Glomerular Filt Rate > 60; Glucose 79 mg/dL (75-110); Magnesium 1.8 mg/dL (1.6-2.3); Phosphorus 3.8 mg/dL (2.5-4.5); Potassium 3.4 mmol/L (3.4-5.0); Sodium 137 mmol/L (137-145)
[2020-08-21 06:00] VITALS: PULSE 63
--- NOTE | 2020-08-21 07:07 | PC.NURSE ---
Patient notified of risks of leaving AMA. [Laisha ] notified. Follow up instructions given to patient. Patient signed AMA form. Patient alert and oriented. Patient left the floor of 08/21/20 at 0704
--- NOTE | 2020-08-21 15:20 | PM.EVENT ---
Event Note Event Note Event Note: I was called the morning of 08/21/20 about the patient wanting to leave AMA. The patient was very adamant about this and I told him that he needed the Keppra and I was going to send in a script for him. He states he plans on continuing drinking but plans to slowly wean off of alcohol. He understands that abruptly stopping alcohol may cause him to have seizure. He is not to drive, swim or take baths. Patient left AMA without me seeing him.
[2020-08-26 18:18] LABS: Platelet Ab,Indirect (IgA) NEGATIVE (NEGATIVE); Platelet Ab,Indirect (IgG) NEGATIVE (NEGATIVE); Platelet Ab,Indirect (IgM) NEGATIVE (NEGATIVE)
== END 2020-08-21 07:04 | disposition left against medical advice (07) ==
LOC: ANHED 20:51 → ANHIMU 22:43
PROVIDERS: Emergency Medicine Emergency Medical Services; Admitting Provider Internal Medicine; Emergency Provider Emergency Medicine; PCP Emergency Medicine; Visit Provider Physician Assistant
DX: G40.909 Epilepsy, unspecified, not intractable, without status epilepticus (principal); F10.20 Alcohol dependence, uncomplicated; F17.210 Nicotine dependence, cigarettes, uncomplicated; R74.01 Elevation of levels of liver transaminase levels; E83.39 Other disorders of phosphorus metabolism; D69.6 Thrombocytopenia, unspecified; F11.10 Opioid abuse, uncomplicated; R11.10 Vomiting, unspecified; E87.6 Hypokalemia
CPT/HCPCS: 36415; 70450; 74176; 80048; 80053; 80074; 80307; 81001; 82607; 82746; 82948; 83690; 83735; 84100; 84443; 85025; 85027; 85055; 85610; 85730; 86022; 86703; 93005; 96361; 96365; 96366; 96367; 96374; 96375; 99283; 99285; A9270; G0378; G0379; G0432; J1953; J2060; J3411; J3475; J3480; J7050; J7120

== ENCOUNTER 2020-10-23 07:04 | Emergency (ER) | payer OTHER, SELFPAY ==
[2020-10-23 07:24] VITALS: BP 143/89; PULSE 108; RESP 17; TEMP 37.2; O2SAT 99
[2020-10-23] MEDS: LORazepam INJ (*CRX) 2 MG/ML VIAL 1 MG IV PUSH ×2 (07:32→08:03)
[2020-10-23 07:37] VITALS: BP 117/92; PULSE 83; RESP 26; O2SAT 98
--- NOTE | 2020-10-23 07:41 | PC.NURSE ---
Patient states I also took a friends 7.5 mg 2 tab hydrocodone for my chronic back pain.
[2020-10-23 07:50] LABS: Basophils Percent Auto 0.7 % (0.2-1.2); Eosinophils Percent Auto 0.3 % (0-4.4); Hematocrit 37.8 % (42.0-52.0); Hemoglobin 13.9 g/dL (14.0-18.0); Immature Granulocyte Absolute 0.02 K/mm3 (0.00-0.031); Immature Granulocyte Percent A 0.3 % (0-0.5); Immature Platelet Fraction Pct 10.3 % (0.9-11.2); Lymphocytes Absolute Auto 0.77 K/mm3 (0.9-3.2); Lymphocytes Percent Auto 12.7 % (18.3-44.2); Mean Corpuscular HGB Conc 36.8 g/dl (32-36); Mean Corpuscular Hemoglobin 35.3 pg (26-34); Mean Corpuscular Volume 95.9 fl (80-100); Mean Platelet Volume 11.1 fl (7.4-10.4); Monocytes Absolute Auto 0.7 K/mm3 (0.1-0.6); Monocytes Percent Auto 11.4 % (2.6-8.5); Neutrophils Absolute Auto 4.5 K/mm3 (1.3-6.7); Neutrophils Percent Auto 74.6 % (45.5-73.1); Platelet Count Result 58 k/mm3 (150-375); Red Blood Count 3.94 M/mm3 (4.6-6.20)
[2020-10-23 07:52] LABS: INR 1.2; Prothrombin Time 14.9 Seconds (11.1-14.7)
[2020-10-23 08:00] LABS: Alanine Aminotransferase 52 U/L (4-50); Albumin Level 4.7 g/dL (3.5-5.1); Alkaline Phosphatase 168 U/L (38-126); Anion Gap 16 mmol/L (8-16); Aspartate Amino Transferase 252 U/L (17-59); Bilirubin,Total 2.7 mg/dL (0.2-1.3); Blood Urea Nitrogen 5 mg/dL (9-20); Calcium 9.1 mg/dL (8.4-10.2); Carbon Dioxide 28 mmol/L (22-30); Chloride 94 mmol/L (98-107); Estimated CRCL calculation 127 ml/min; Estimated Glomerular Filt Rate > 60; Glucose 114 mg/dL (75-110); Lipase 82 U/L (23-300); Sodium 138 mmol/L (137-145)
[2020-10-23] MEDS: THIAMINE HCL INJ 100 MG, FOLIC ACID INJ 1 MG, MULTIVITAMINS-12 INJ VIAL 1 5 ML, MULTIVI... 1000 MG IV CONT (08:01)
[2020-10-23] MEDS: SODIUM CHLORIDE 0.9% IV 1,000 ML 999 ML IV CONT (08:02)
[2020-10-23] MEDS: ONDANSETRON INJ 4 MG/2 ML VIAL 8 MG IV PUSH (08:10)
[2020-10-23 08:22] LABS: Ethanol 11 mg/dL (<10)
--- NOTE | 2020-10-23 08:27 | ED.ALCOHOL ---
HPI - Alcohol General Chief Complaint: Alcohol Stated Complaint: ETOH withdrawal Time Seen by Provider: 10/23/20 07:27 Source: patient and family Limitations: no limitations History of Present Illness HPI narrative: 44 years old white male presents to the ED because he would like to stop drinking alcohol. Patient been drinking alcohol for the last 25 years, last alcohol intake was 2-hour prior to arrival to the emergency room. Patient denies suicidal or homicidal ideation, patient denies any drug use. Patient denies any fever, chills, nausea, vomiting Related Data Home Medications Medication Instructions Recorded Confirmed levetiracetam PO 10/23/20 Allergies Allergy/AdvReac Type Severity Reaction Status Date / Time Penicillins Allergy Intermediate Unknown Verified 10/23/20 07:36 Review of Systems Review of Systems: Narrative: CONSTITUTIONAL: Denies fever, chills, or sweats. EYES: Denies visual changes, redness, or discharge. ENT: Denies rhinorrhea, congestion, sore throat, or otalgia. CARDIOVASCULAR: Denies chest pain, palpitations, or edema. RESPIRATORY: Denies cough or dyspnea. GASTROINTESTINAL: Denies abdominal pain, nausea, vomiting, or diarrhea. GENITOURINARY: Denies dysuria or hematuria. SKIN: Denies rash or itching. MUSCULOSKELETAL: Denies back pain, joint pain, or myalgia. NEUROLOGIC: Denies headache, numbness, or weakness. PSYCHIATRIC: Denies anxiety or depression. [facility] [place] Past Medical History Medical History Alcohol abuse Alcohol abuse Opiate abuse, episodic Seizure disorder Tobacco abuse disorder Surgical History Surgical History History of exploratory laparotomy With partial large and small bowel resection and partial liver resection due to trauma Status post open reduction with internal fixation of fracture Left humerus Family History Family History Mother Lupus (systemic lupus erythematosus) Depression Family history of type 2 diabetes mellitus COPD (chronic obstructive pulmonary disease) Gall bladder disease Daughter Schizophrenia Sibling DVT (deep venous thrombosis) Social History Social History Social History: He currently lives with his fiancee of 2 years. He has 4 children ranging from age 23 downed age 10. His oldest daughter, who is 10 years old, is currently staying with his mother. He used to smoke up to 2 and half packs of cigarettes per day. He started smoking at age 14. He is down to 1 pack of cigarettes per day for the last year so. He drinks a 5th of vodka or whiskey a day. He reports experimenting with IV drug use. He does episodically abuse opiates that are not prescribed to him. Primary care physician: Dr. Jonathan Maria Smoking packs per day: 2.5 Smoking cigarettes per day: 50.0 Years smoked: 30 Smoking pack-years: 75.00 Smoking status: Current every day smoker Alcohol intake: current Drinks per week: 119 Substance use: current Substance use type: marijuana, opiates and prescription drug Other substance usage details: fentanyl, vicodin, methamphetamines Gender identity (if verbalized by the patient): Male Spiritual care concerns: No Exam Narrative: Exam Narrative: General appearance: Well-developed, well-nourished, slight shaking Skin: Normal color Head: Normocephalic, nontraumatic Eyes: Clear conjunctiva ENT: Oropharynx normal, ears normal, nose normal Neck: Supple, nontender Chest and respiratory: Airway patent, no respiratory distress, no accessory muscle use Heart: Regular rate/rhythm Abdomen: Soft, nontender, no organomegaly, quiet bowel sounds Vascular: Normal peripheral pulses, normal capillary refill. Musculoskeletal: Normal range of motion, nontender back Neurologic: Alert and oriented ?3, VERMIN EXTERMINATOR is normal as te
[2020-10-23 08:34] VITALS: BP 105/63; PULSE 80; RESP 19; O2SAT 97
[2020-10-23] MEDS: POTASSIUM CHLORIDE 20 MEQ PACKET (FOR LIQUID) 40 MEQ PO (08:54)
[2020-10-23 08:55] VITALS: BP 105/62; PULSE 88; RESP 20; O2SAT 97
== END 2020-10-23 09:03 | disposition home or self-care (01) ==
PROVIDERS: Emergency Provider Emergency Medicine; PCP Emergency Medicine
DX: K70.10 Alcoholic hepatitis without ascites (principal); E87.6 Hypokalemia; F10.20 Alcohol dependence, uncomplicated; Y90.0 Blood alcohol level of less than 20 mg/100 ml; F17.210 Nicotine dependence, cigarettes, uncomplicated
CPT/HCPCS: 36415; 80053; 80307; 83690; 85025; 85055; 85610; 96365; 96375; 96376; 99284; A9270; J2060; J2405; J3411; J3475; J7030

== ENCOUNTER 2020-11-22 21:48 | Inpatient (IN) | payer OTHER, SELFPAY ==
--- NOTE | ~2020-11-22 | CT_ITS ---
EXAMINATION: CT abdomen pelvis w con DATE: 11/23/2020 01:29 INDICATION: Abdominal pain, new ascites TECHNIQUE: Computed tomography (CT) of the abdomen and pelvis was performed with 100 cc Omnipaque 350 intravenous contrast. Automated exposure control and iterative reconstruction technique were employe d. Exam dose: 286.95 mGy-cm total exam DLP. COMPARISON: 08/20/2020 CT abdomen pelvis FINDINGS: Middle lobe calcified pulmonary granuloma. Minimal atelectasis at the lung bases. Normal heart size. No pericardial or pleural effusion. Hepatomegaly and borderline splenomegaly. There is moderate ascites. No hepatic, splenic, pancreatic, adrenal or renal space-occupying mass lesion is detected. Normal caliber of the abdominal aorta. No intraperitoneal or retroperitoneal or pelvic mass lesion or adenopathy. No bowel obstruction or intraperitoneal free air. Included skeletal structures are unremarkable. IMPRESSION: Hepatomegaly, borderline splenomegaly, moderate ascites Reviewed, dictated and finalized at Location A. Reviewed, dictated and finalized at location D.
--- NOTE | ~2020-11-22 | XR_ITS ---
EXAMINATION: XR chest 2V DATE: 11/22/2020 22:23 INDICATION: Midsternal chest pain. TECHNIQUE: Frontal and lateral views of the chest were obtained. COMPARISON: Chest single view 10/12/2011, CT abdomen and pelvis 08/20/2020 FINDINGS: A calcified right lung nodule is consistent with old granulomatous disease. There is mild a telectasis in the lower lung zones. No pleural effusion or pneumothorax. The heart size is normal. IMPRESSION: 1. Mild atelectasis in the lower lung zones. Reviewed, dictated and finalized at location A.
--- NOTE | ~2020-11-22 | US_ITS ---
EXAMINATION: US paracentesis abd w/image DATE: 11/23/2020 14:09 INDICATION: Ascites. TECHNIQUE: The procedure and its risks and benefits were discussed with the patient. Potential risks discussed included bleeding and infection. The skin was prepped and draped in sterile fashion. 1% lid ocaine was used for local anesthesia. Under ultrasound guidance, a 5 Fr catheter with trochar was adv anced into the ascites in the right lower quadrant. Fluid was aspirated into vacuum bottles. The cath eter was removed, and a dressing was applied. There were no immediate complications. FINDINGS: Ultrasound images demonstrate ascites and the catheter within the fluid. IMPRESSION: 1. Successful ultrasound-guided paracentesis yielding 1100 mL of yellow fluid. Reviewed, dictated and finalized at location A.
--- NOTE | 2020-11-22 21:50 | ECG_ITS ---
Measurements Intervals [place] Rate: 103 P: 61 CT: 144 QRS: 31 QRSD: 86 T: 27 QT: 337 QTc: 442 Interpretive Statements SINUS TACHYCARDIA NONSPECIFIC T-WAVE ABNORMALITY- ANTEROLAT/INF LEADS BASELINE WANDER- V4, V6 BORDERLINE ECG Electronically Signed On 11-23-2020 6:27:38 CDT by Willem Ballard D.O.
[2020-11-22 21:54] VITALS: BP 106/63; PULSE 104; RESP 20; TEMP 36.8; O2SAT 98
[2020-11-22 22:32] LABS: Basophils Absolute Auto 0.1 K/mm3 (0.0-0.1); Basophils Percent Auto 0.7 % (0.2-1.2); Eosinophils Absolute Auto 0.1 K/mm3 (0-0.3); Eosinophils Percent Auto 0.7 % (0-4.4); Hematocrit 39.1 % (42.0-52.0); Hemoglobin 13.3 g/dL (14.0-18.0); Immature Granulocyte Percent A 0.6 % (0-0.5); Lymphocytes Absolute Auto 1.44 K/mm3 (0.9-3.2); Lymphocytes Percent Auto 8.6 % (18.3-44.2); Mean Corpuscular Hemoglobin 36.1 pg (26-34); Mean Corpuscular Volume 106.3 fl (80-100); Mean Platelet Volume 10.2 fl (7.4-10.4); Monocytes Absolute Auto 1.5 K/mm3 (0.1-0.6); Monocytes Percent Auto 8.9 % (2.6-8.5); Neutrophils Absolute Auto 13.4 K/mm3 (1.3-6.7); Neutrophils Percent Auto 80.5 % (45.5-73.1); Platelet Count Result 337 k/mm3 (150-375); Red Blood Count 3.68 M/mm3 (4.6-6.20); Red Cell Distribution Width 11.9 % (11.5-14.5); White Blood Count 16.7 K/mm3 (4.5-10.0)
[2020-11-22 22:37] LABS: INR 1.4; Prothrombin Time 17.1 Seconds (11.1-14.7)
[2020-11-22 22:38] LABS: Partial Thromboplastin Time 39.4 SECONDS (22.3-36.8)
[2020-11-22 22:40] LABS: Anion Gap 9 mmol/L (8-16); Blood Urea Nitrogen 2 mg/dL (9-20); Calcium 8.3 mg/dL (8.4-10.2); Carbon Dioxide 25 mmol/L (22-30); Chloride 97 mmol/L (98-107); Estimated CRCL calculation 128 ml/min; Estimated Glomerular Filt Rate > 60; Glucose 113 mg/dL (65-110); Lipase 69 U/L (23-300); Potassium 3.5 mmol/L (3.4-5.0); Sodium 131 mmol/L (137-145)
[2020-11-22 22:52] LABS: Troponin I < 0.012 ng/mL (0.000-0.034)
[2020-11-23] VITALS (41 sets, daily range): BP systolic 69–113; BP diastolic 43–84; PULSE 55–118; RESP 10–33; TEMP 36.4–36.5; O2SAT 90–100; BMI 20.3
[2020-11-23 00:19] LABS: Alanine Aminotransferase 43 U/L (4-50); Albumin Level 3.2 g/dL (3.5-5.1); Alkaline Phosphatase 132 U/L (38-126); Aspartate Amino Transferase 271 U/L (17-59); Bilirubin Direct 0.2 mg/dL (0-0.3); Bilirubin,Total 4.2 mg/dL (0.2-1.3); Ethanol < 10 mg/dL (<10)
[2020-11-23 01:35] LABS: Troponin I < 0.012 ng/mL (0.000-0.034)
[2020-11-23] MEDS: HYDROmorphone HCL INJ (*CRX) 1 MG/ML SYR IV PUSH (03:37)
[2020-11-23] MEDS: LIDOCAINE HCL 1% LOCAL INJ 20 ML VIAL (04:00)
--- NOTE | 2020-11-23 04:14 | PM.IMHP ---
H&P: HPI History of Present Illness Date/Time: 11/23/20 04:14 Chief Complaint: abdominal pain Narrative: 45 years old white male presents to the ED presents to the ED today with complaints of abdominal pain since past few days now. He also reports being febrile in the beginning no nausea, vomiting. he reports the abdomen is sore in the lowera bdomen but has been moving up to his chest. no sob reported. he has quitted drinking about 3 weeks ago now. he used to be drinking heavily about one fifth of the bottle daily to a bottle ee. he also has history of seizure and is on keppra. he has not had seizure for past few months now. He ran out of his seizure medications he states. Review of Systems Review of Systems: - CONSTITUTIONAL: Denies weight loss, fever and chills. - HEENT: Denies changes in vision and hearing - RESPIRATORY: Denies SOB and cough. - CV: Denies palpitations and reports CP. - GI: reports abdominal pain, denies nausea, vomiting and diarrhea. - : Denies dysuria and urinary frequency. - MSK: Denies myalgia and joint pain. - SKIN: Denies rash and pruritus. - NEUROLOGICAL: Denies headache and syncope. - PSYCHIATRIC: Denies recent changes in mood. Denies anxiety and depression. All systems reviewed & are unremarkable except as noted in HPI and below Constitutional: Constitutional: Reports fatigue and Reports weakness Neurologic: Reports weakness Endocrine: Endocrine: Reports fatigue PMF Past Medical History Medical History Alcohol abuse Alcohol abuse Opiate abuse, episodic Seizure disorder Tobacco abuse disorder Surgical History Surgical History History of exploratory laparotomy With partial large and small bowel resection and partial liver resection due to trauma Status post open reduction with internal fixation of fracture Left humerus Family History Family History Mother Lupus (systemic lupus erythematosus) Depression Family history of type 2 diabetes mellitus COPD (chronic obstructive pulmonary disease) Gall bladder disease Daughter Schizophrenia Sibling DVT (deep venous thrombosis) Social History Social History Social History: He currently lives with his fiancee of 2 years. He has 4 children ranging from age 23 downed age 10. His oldest daughter, who is 10 years old, is currently staying with his mother. He used to smoke up to 2 and half packs of cigarettes per day. He started smoking at age 14. He is down to 1 pack of cigarettes per day for the last year so. He drinks a 5th of vodka or whiskey a day. He reports experimenting with IV drug use. He does episodically abuse opiates that are not prescribed to him. Primary care physician: Dr. Jonathan Maria Smoking packs per day: 2.5 Smoking cigarettes per day: 50.0 Years smoked: 30 Smoking pack-years: 75.00 Smoking status: Current every day smoker Alcohol intake: current Drinks per week: 119 Substance use: current Substance use type: marijuana, opiates and prescription drug Other substance usage details: fentanyl, vicodin, methamphetamines Gender identity (if verbalized by the patient): Male Spiritual care concerns: No Meds Home Medications and Allergies Home Medications Medication Instructions Recorded Confirmed Type chlordiazepoxide HCl 25 mg PO BID PRN #20 cap 10/23/20 Rx folic acid 1,000 mcg PO DAILY #14 tablet 10/23/20 Rx levetiracetam PO 10/23/20 History potassium chloride 20 meq PO BID 5 Days #1 ea 10/23/20 Rx thiamine HCl (vitamin B1) 100 mg PO DAILY #14 tablet 10/23/20 Rx Allergies Allergy/AdvReac Type Severity Reaction Status Date / Time Penicillins Allergy Intermediate Unknown Verified 10/23/20 07:36 Vital Signs Vital Signs - 24 hr 11/22/20
[2020-11-23 04:27] LABS: Troponin I < 0.012 ng/mL (0.000-0.034)
--- NOTE | 2020-11-23 04:46 | ED.GENADULT ---
HPI - General Adult General Chief complaint: Chest Pain Stated complaint: CP Time Seen by Provider: 11/22/20 23:57 History of Present Illness HPI narrative: Patient 45-year-old gentleman who presents the emergency department chief complaint of abdominal pain and abdominal fullness. The patient reports has been diagnosed with cirrhosis but has not had ascites before. The patient noticed that his abdomen is beginning progressively orellana and feels very tender whenever he palpates it. Patient denies fever reports that the fullness is making him feel as though it is to breathe. Patient reports that he recently stopped consuming alcohol and has not had a drink and some time now. Related Data Home Medications Medication Instructions Recorded Confirmed levetiracetam PO 10/23/20 Allergies Allergy/AdvReac Type Severity Reaction Status Date / Time Penicillins Allergy Intermediate Unknown Verified 10/23/20 07:36 Review of Systems Review of Systems: A 10 system review of systems was completed on the patient and is negative except for what is stated in the HPI. Nursing and ancillary documentation was reviewed. FOR[facility] Past Medical History Medical History Alcohol abuse Alcohol abuse Opiate abuse, episodic Seizure disorder Tobacco abuse disorder Surgical History Surgical History History of exploratory laparotomy With partial large and small bowel resection and partial liver resection due to trauma Status post open reduction with internal fixation of fracture Left humerus Family History Family History Mother Lupus (systemic lupus erythematosus) Depression Family history of type 2 diabetes mellitus COPD (chronic obstructive pulmonary disease) Gall bladder disease Daughter Schizophrenia Sibling DVT (deep venous thrombosis) Social History Social History Social History: He currently lives with his fiancee of 2 years. He has 4 children ranging from age 23 downed age 10. His oldest daughter, who is 10 years old, is currently staying with his mother. He used to smoke up to 2 and half packs of cigarettes per day. He started smoking at age 14. He is down to 1 pack of cigarettes per day for the last year so. He drinks a 5th of vodka or whiskey a day. He reports experimenting with IV drug use. He does episodically abuse opiates that are not prescribed to him. Primary care physician: Dr. Jonathan Maria Smoking packs per day: 2.5 Smoking cigarettes per day: 50.0 Years smoked: 30 Smoking pack-years: 75.00 Smoking status: Current every day smoker Alcohol intake: current Drinks per week: 119 Substance use: current Substance use type: marijuana, opiates and prescription drug Other substance usage details: fentanyl, vicodin, methamphetamines Gender identity (if verbalized by the patient): Male Spiritual care concerns: No Exam Narrative: GENERAL: Well-appearing, well-nourished, and in no acute distress. HEAD: Normocephalic, atraumatic. EYES: PERRLA and EOMI. ENT: Nares clear, no rhinorrhea or epistaxis. Mucous membranes moist. NECK: Supple. CHEST: Clear to auscultation. No respiratory distress. HEART: Regular rate and rhythm. No murmur heard. Normal peripheral pulses. ABDOMEN: Distended abdomen positive fluid wave tenderness to palpation EXTREMITIES: Normal range of motion. No edema. SKIN: Warm, dry, no rash. NEURO: No focal deficits. Alert and oriented x3. PSYCH: Normal mood and affect. Course Vital Signs Vital signs: Vital Signs Temperature 36.8 C 11/22/20 21:54 Pulse Rate 104 H 11/22/20 21:54 Respiratory Rate 20 11/22/20 21:54 Blood Pressure 106/63 11/22/20 21:54 Pulse Oximetry 98 11/22/20 21:54 Temperatur
[2020-11-23] MEDS: CIPROFLOXACIN 400 MG/D5W 200ML 200 ML 200 MG IVPB ×2 (05:06→17:35)
[2020-11-23 05:58] LABS: Appearance Peritoneal Fluid Clear (Clear); Color Peritoneal Fluid Yellow (Colorless); Nucleated Cells Peritoneal Flu 311 /uL (0-500); RBC Peritoneal Fluid 596 /uL (0-100000); Source Peritoneal Fluid Peritoneal Fluid
[2020-11-23 05:59] LABS: Lymphocytes Peritoneal Fluid 40 %; Macrophages Peritoneal Fluid 10 %; Mesothelial Cells Peritoneal Fluid 15 %; Monocytes Peritoneal Fluid 14 %; Other Cells Peritoneal Fluid 8 %
[2020-11-23 06:00] LABS: Neutrophils Peritoneal Fluid 13 % (0-25)
--- NOTE | 2020-11-23 06:19 | PC.NURSE ---
This patient, Boom Saravia, was admitted to 3 [facility] Surg Room 322-01. Patient/family oriented to hospital policies and general routines including ID bracelet, bed and alarms, visiting hours, pain management, procedures, bathroom and other care routines, personal items, smoking policy, room service/diet, and visiting hours. Information on how to activate the Rapid Response Team has been discussed. Patient/Family are encouraged to report perceived risks to care and to ask questions if they do not understand what they are told or what they should do.
[2020-11-23] MEDS: MORPHINE SULFATE (*CRX) 2 MG/ML INJ IV PUSH ×3 (09:11→19:55)
--- NOTE | 2020-11-23 13:47 | P.PNIM_ITS ---
Progress Note: A&P Assessment and Plan (1) Alcohol abuse: Code(s): F10.10 - Alcohol abuse, uncomplicated Status: Acute Assessment and Plan: * Patient claims to have stopped drinking 3 weeks ago * alcohol according to labs is less than 10 * education has been completed * AST is 271 ALT is 43 * trend labs * labs in a.m. * CWIA protocol * Librium 25mg PO Q6hr PRN * folic acid 1 mg p.o. daily * thiamine 1 mg p.o. daily (2) Elevated AST (SGOT): Code(s): R74.01 - Elevation of levels of liver transaminase levels Status: Acute Assessment and Plan: * AST 271 * trend labs * labs in a.m. (3) Seizure disorder: Code(s): G40.909 - Epilepsy, unspecified, not intractable, without status epilepticus Status: Acute Assessment and Plan: * patient is on Keppra 750 mg b.i.d. prescribed * Keppra 750 once a day is what he is taking * will continue Keppra 750 mg p.o. b.i.d. * seizure precautions * monitor (4) Abdominal pain: Code(s): R10.9 - Unspecified abdominal pain Status: Acute Assessment and Plan: * abdominal CT shows hepatomegaly and moderate ascites * ciprofloxacin 400 mg IV q.12 * rule out bacterial peritonitis * therapeutic paracentesis done in the ED 40 mL removed for evaluation * clear yellow ascitic fluid tapped. * another paracentesis ordered per radiology today. * Preliminary body fluid culture shows no organisms per gram stain * morphine 2 mg IV q.4 p.r.n. * Zofran 4 mg IV push Q 6 p.r.n. for nausea * supportive care (5) Ascites: Code(s): R18.8 - Other ascites Status: Acute Assessment and Plan: * therapeutic paracentesis done today per IR * cultures pending (6) Portal hypertension: Code(s): K76.6 - Portal hypertension Status: Acute Assessment and Plan: * will need beta-karina started if tolerated by his blood pressure * will need Lasix or Aldactone * monitor Subjective Date/time seen: 11/23/20 11:00 Interval history: Patient is a 45-year-old male with a past medical history of seizures, alcohol abuse who presented the ED with complaints of abdominal pain. It looks like the patient was here 10/23/2020 for help to stop drinking. Which he was prescribed folic acid and thiamine and Librium. He reports drinking cessation about 3 weeks ago. He now complains of sore abdomen, fullness that has caused him to become short of breath. He also stated that it caused bed pain in his chest. He has been short of breath which he contributes to smoking 2 packs per day however he stated that is been worse over the last few days. Patient also stated that he has been having some nausea and he did vomit this a.m. however he contributes that is to having pain medications. patient has also complained of sweats fevers and chills however he stated that was from the DTs which he was aware who was going to have. Patient was here for evaluation of seizures which he stated he has had all of his life however he has been out of his medications. Patient stated that he was prescribed 750 mg p.o. b.i.d. however he said that it makes his stomach feel bad so he has been breaking it in half and taking half a pill in the a.m. and half a pill at night. He also stated that he has recently changed that regimen to just taking 1 pill once a day. He does say that that seems to work but he is currently out of his medications. He also claims
--- NOTE | 2020-11-23 13:47 | PM.IMPN ---
Progress Note: A&P Assessment and Plan (1) Alcohol abuse: Code(s): F10.10 - Alcohol abuse, uncomplicated Status: Acute Assessment and Plan: Patient claims to have stopped drinking 3 weeks ago alcohol according to labs is less than 10 education has been completed AST is 271 ALT is 43 trend labs labs in a.m. CWIA protocol Librium 25mg PO Q6hr PRN folic acid 1 mg p.o. daily thiamine 1 mg p.o. daily (2) Elevated AST (SGOT): Code(s): R74.01 - Elevation of levels of liver transaminase levels Status: Acute Assessment and Plan: AST 271 trend labs labs in a.m. (3) Seizure disorder: Code(s): G40.909 - Epilepsy, unspecified, not intractable, without status epilepticus Status: Acute Assessment and Plan: patient is on Keppra 750 mg b.i.d. prescribed Keppra 750 once a day is what he is taking will continue Keppra 750 mg p.o. b.i.d. seizure precautions monitor (4) Abdominal pain: Code(s): R10.9 - Unspecified abdominal pain Status: Acute Assessment and Plan: abdominal CT shows hepatomegaly and moderate ascites ciprofloxacin 400 mg IV q.12 rule out bacterial peritonitis therapeutic paracentesis done in the ED 40 mL removed for evaluation clear yellow ascitic fluid tapped. another paracentesis ordered per radiology today. Preliminary body fluid culture shows no organisms per gram stain morphine 2 mg IV q.4 p.r.n. Zofran 4 mg IV push Q 6 p.r.n. for nausea supportive care (5) Ascites: Code(s): R18.8 - Other ascites Status: Acute Assessment and Plan: therapeutic paracentesis done today per IR cultures pending (6) Portal hypertension: Code(s): K76.6 - Portal hypertension Status: Acute Assessment and Plan: will need beta-karina started if tolerated by his blood pressure will need Lasix or Aldactone monitor Subjective Date/time seen: 11/23/20 11:00 Interval history: Patient is a 45-year-old male with a past medical history of seizures, alcohol abuse who presented the ED with complaints of abdominal pain. It looks like the patient was here 10/23/2020 for help to stop drinking. Which he was prescribed folic acid and thiamine and Librium. He reports drinking cessation about 3 weeks ago. He now complains of sore abdomen, fullness that has caused him to become short of breath. He also stated that it caused bed pain in his chest. He has been short of breath which he contributes to smoking 2 packs per day however he stated that is been worse over the last few days. Patient also stated that he has been having some nausea and he did vomit this a.m. however he contributes that is to having pain medications. patient has also complained of sweats fevers and chills however he stated that was from the DTs which he was aware who was going to have. Patient was here for evaluation of seizures which he stated he has had all of his life however he has been out of his medications. Patient stated that he was prescribed 750 mg p.o. b.i.d. however he said that it makes his stomach feel bad so he has been breaking it in half and taking half a pill in the a.m. and half a pill at night. He also stated that he has recently changed that regimen to just taking 1 pill once a day. He does say that that seems to work but he is currently out of his medications. He also claims that he has a neurologist but he said he got a letter from his neurologist saying that he is releasing him from his care. Patient also admits to losing 60 lb in 6 months. Patient denies current chest pain, shortness of breath, weakness, fatigue, or falls. It seems to appear that the ED did a small paracentesis of about 40 [place] off. He is scheduled to go today for a paracentesis with IR. Liver enzymes are elevated AST is 271 ALT is 43. White count is also elevated
[2020-11-23] MEDS: NICOTINE (*PBKC) 21 MG PATCH 1 PATCH TRANSDERM (15:23)
[2020-11-23] MEDS: levETIRAcetam Tablet 250 MG, levETIRAcetam Tablet 500 MG 750 MG PO (19:57)
[2020-11-24] VITALS (8 sets, daily range): BP systolic 91–100; BP diastolic 53–64; PULSE 83–94; RESP 18–20; TEMP 36.1–36.6; O2SAT 96–99
[2020-11-24] MEDS: CIPROFLOXACIN 400 MG/D5W 200ML 200 ML 200 MG IVPB ×2 (06:31→17:42)
[2020-11-24] MEDS: MORPHINE SULFATE (*CRX) 2 MG/ML INJ IV PUSH ×2 (06:31→12:08)
[2020-11-24 06:52] LABS: Basophils Absolute Auto 0.1 K/mm3 (0.0-0.1); Basophils Percent Auto 0.8 % (0.2-1.2); Eosinophils Absolute Auto 0.2 K/mm3 (0-0.3); Eosinophils Percent Auto 1.4 % (0-4.4); Hematocrit 37.4 % (42.0-52.0); Hemoglobin 12.9 g/dL (14.0-18.0); Immature Granulocyte Absolute 0.07 K/mm3 (0.00-0.031); Immature Granulocyte Percent A 0.6 % (0-0.5); Lymphocytes Absolute Auto 1.76 K/mm3 (0.9-3.2); Lymphocytes Percent Auto 14.2 % (18.3-44.2); Mean Corpuscular HGB Conc 34.5 g/dl (32-36); Mean Corpuscular Hemoglobin 36.4 pg (26-34); Mean Corpuscular Volume 105.6 fl (80-100); Mean Platelet Volume 9.9 fl (7.4-10.4); Monocytes Absolute Auto 1.3 K/mm3 (0.1-0.6); Monocytes Percent Auto 10.2 % (2.6-8.5); Neutrophils Absolute Auto 9.1 K/mm3 (1.3-6.7); Neutrophils Percent Auto 72.8 % (45.5-73.1); Platelet Count Result 284 k/mm3 (150-375); Red Blood Count 3.54 M/mm3 (4.6-6.20); Red Cell Distribution Width 11.6 % (11.5-14.5); White Blood Count 12.4 K/mm3 (4.5-10.0)
[2020-11-24 07:11] LABS: Alanine Aminotransferase 40 U/L (4-50); Albumin Level 2.7 g/dL (3.5-5.1); Alkaline Phosphatase 104 U/L (38-126); Anion Gap 6 mmol/L (8-16); Aspartate Amino Transferase 252 U/L (17-59); Blood Urea Nitrogen 5 mg/dL (9-20); Calcium 8.5 mg/dL (8.4-10.2); Carbon Dioxide 28 mmol/L (22-30); Chloride 98 mmol/L (98-107); Estimated CRCL calculation 128 ml/min; Estimated Glomerular Filt Rate > 60; Glucose 80 mg/dL (65-110); Potassium 3.7 mmol/L (3.4-5.0); Sodium 132 mmol/L (137-145)
[2020-11-24] MEDS: NICOTINE (*PBKC) 21 MG PATCH 1 PATCH TRANSDERM (09:07)
[2020-11-24] MEDS: levETIRAcetam Tablet 250 MG, levETIRAcetam Tablet 500 MG 750 MG PO (09:10)
--- NOTE | 2020-11-24 10:46 | PM.IMPN ---
Progress Note: A&P Assessment and Plan (1) SBP (spontaneous bacterial peritonitis): Code(s): K65.2 - Spontaneous bacterial peritonitis Status: Acute Assessment and Plan: -PMNs greater than 250, 311 - likely diagnosis SBP, continue ciprofloxacin IV b.i.d., awaiting culture results of peritoneal fluid - continue pain control, wean off of IV pain medication - pain control added p.o. Dilaudid low-dose, breakthrough pain with IV morphine. will avoid tramadol with seizure history (2) Abdominal pain: Qualifiers: Abdominal location: generalized Qualified Code(s): R10.84 - Generalized abdominal pain Code(s): R10.9 - Unspecified abdominal pain Status: Acute Assessment and Plan: likely secondary to SBP (3) Ascites: Qualifiers: Ascites type: due to alcoholic cirrhosis Qualified Code(s): K70.31 - Alcoholic cirrhosis of liver with ascites Code(s): R18.8 - Other ascites Status: Acute Assessment and Plan: status post paracentesis 11/23/2020, pain is improved after fluid removed (4) Portal hypertension: Code(s): K76.6 - Portal hypertension Status: Acute Assessment and Plan: patient will need diuretics in the future however his blood pressure is too low to start now (5) Seizure disorder: Code(s): G40.909 - Epilepsy, unspecified, not intractable, without status epilepticus Status: Acute Assessment and Plan: continue home Keppra (6) Alcohol abuse: Code(s): F10.10 - Alcohol abuse, uncomplicated Status: Acute Assessment and Plan: will continue CIWA protocol p.r.n. Librium (7) Decompensation of cirrhosis of liver: Code(s): K72.90 - Hepatic failure, unspecified without coma; K74.60 - Unspecified cirrhosis of liver Status: Acute Assessment and Plan: likely etiology of ascites is decompensation of alcohol cirrhosis Additional Plan - diet heart healthy - code status full code - disposition pending clinical course, wean off IV pain medication treating SBP, patient will be discharged home Time Spent With Patient Time with patient: 15 - 25 minutes Subjective Date/time seen: 11/24/20 10:46 patient seen and examined. he is status post paracentesis yesterday likely from decompensated cirrhosis. His blood pressure is 91/53 is too hypotensive to start beta-karina or diuretics at this time. peritoneal fluid PMN 311 which is >250, will continue ciprofloxacin. abdominal pain appears to be improving after paracentesis, will continue antibiotics, awaiting cultures. For pain control adding low-dose p.o. Dilaudid after discussion with patient. will continue to treat spontaneous bacterial peritonitis with IV antibiotics and wean pain medication. Patient denies fever, chills, nausea, vomiting, diarrhea. Endorses generalized weakness and abdominal pain in epigastric region as well as the bilateral flank area. Review of Systems Review of Systems: All systems reviewed & are unremarkable except as noted in HPI and below Exam Narrative: - GENERAL: frail ill-appearing male breathing comfortably, no acute distress - EYES: EOMI. Anicteric. - HENT: Moist mucous membranes. edentulous - LUNGS: Clear to auscultation bilaterally, no wheezing, rhonchi, or rales. - CARDIOVASCULAR: Regular rate and rhythm. No murmur. No JVD. - ABDOMEN: Soft, distended, tender on deep palpation throughout. No palpable masses. - EXTREMITIES: no peripheral edema. Peripheral pulses 2+. Non-tender. - NEUROLOGIC: No focal neurological deficits. CN II-XII grossly intact. - PSYCHIATRIC: Awake, Alert and oriented x 3. Appropriate mood and affect. - SKIN: No rashes or lesions. Warm. - LYMPH: No cervical lymphadenopathy. Objective Data Vital Signs Vital Signs: Vital Signs - 24 hr 11/23/20 14:00 11/23/20 22:00 11/24/20 06:00 Temperature 36.4 C 36.5 C 36.2 C L Pulse Rate 55 L 87 83 Respiratory Rate 16 18 18 Blood P
[2020-11-24] MEDS: HYDROmorphone HCL (*CRX) 1 MG TABLET PO ×3 (10:57→21:57)
[2020-11-24] MEDS: NICOTINE (*PBKC) 4 MG GUM PO (17:34)
[2020-11-24] MEDS: THERAPEUTIC MULTIVITAMINS/MINERALS TAB (*BKC) 1 TABLET PO (17:34)
--- NOTE | 2020-11-24 21:52 | PC.NURSE ---
patient refused night dose of keppra.. Said he will only take 250mg of it daily because that is what works for him and states that it keeps his seizures away , any more than that will cause him to vomit, per him. -AEW RN
[2020-11-25 04:02] VITALS: O2SAT 96
[2020-11-25] MEDS: CIPROFLOXACIN 400 MG/D5W 200ML 200 ML 200 MG IVPB (05:28)
[2020-11-25 06:00] VITALS: BP 95/59; PULSE 78; RESP 18; TEMP 36.4; O2SAT 92
[2020-11-25] MEDS: MORPHINE SULFATE (*CRX) 2 MG/ML INJ IV PUSH ×2 (06:26→10:38)
[2020-11-25] MEDS: ONDANSETRON INJ 4 MG/2 ML VIAL IV PUSH (06:32)
[2020-11-25 06:59] LABS: Basophils Absolute Auto 0.1 K/mm3 (0.0-0.1); Basophils Percent Auto 0.7 % (0.2-1.2); Eosinophils Absolute Auto 0.2 K/mm3 (0-0.3); Eosinophils Percent Auto 1.6 % (0-4.4); Hemoglobin 12.5 g/dL (14.0-18.0); Immature Granulocyte Absolute 0.07 K/mm3 (0.00-0.031); Immature Granulocyte Percent A 0.5 % (0-0.5); Lymphocytes Absolute Auto 2.03 K/mm3 (0.9-3.2); Lymphocytes Percent Auto 15.1 % (18.3-44.2); Mean Corpuscular HGB Conc 32.9 g/dl (32-36); Mean Corpuscular Hemoglobin 35.7 pg (26-34); Mean Corpuscular Volume 108.6 fl (80-100); Mean Platelet Volume 9.8 fl (7.4-10.4); Monocytes Absolute Auto 1.6 K/mm3 (0.1-0.6); Neutrophils Absolute Auto 9.4 K/mm3 (1.3-6.7); Neutrophils Percent Auto 70.1 % (45.5-73.1); Platelet Count Result 304 k/mm3 (150-375); Red Cell Distribution Width 11.8 % (11.5-14.5); White Blood Count 13.4 K/mm3 (4.5-10.0)
[2020-11-25 07:26] LABS: INR 1.4; Prothrombin Time 16.7 Seconds (11.1-14.7)
[2020-11-25 07:32] LABS: Alanine Aminotransferase 43 U/L (4-50); Albumin Level 2.9 g/dL (3.5-5.1); Alkaline Phosphatase 130 U/L (38-126); Anion Gap 5 mmol/L (8-16); Aspartate Amino Transferase 300 U/L (17-59); Bilirubin,Total 3.1 mg/dL (0.2-1.3); Blood Urea Nitrogen 8 mg/dL (9-20); Calcium 8.3 mg/dL (8.4-10.2); Carbon Dioxide 28 mmol/L (22-30); Chloride 95 mmol/L (98-107); Estimated CRCL calculation 128 ml/min; Estimated Glomerular Filt Rate > 60; Glucose 60 mg/dL (65-110); Potassium 4.1 mmol/L (3.4-5.0); Sodium 128 mmol/L (137-145)
[2020-11-25 08:00] VITALS: O2SAT 92
[2020-11-25] MEDS: THERAPEUTIC MULTIVITAMINS/MINERALS TAB (*BKC) 1 TABLET PO (09:21)
[2020-11-25] MEDS: levETIRAcetam Tablet 250 MG, levETIRAcetam Tablet 500 MG 750 MG PO (09:21)
[2020-11-25] MEDS: NICOTINE (*PBKC) 4 MG GUM PO (09:21)
[2020-11-25] MEDS: NICOTINE (*PBKC) 21 MG PATCH 1 PATCH TRANSDERM (09:23)
--- NOTE | 2020-11-25 10:39 | PCNFU ---
Nutrition Follow-Up Complete: Unintended weight loss as related to Abdominal Pain/Ascites as evidenced by weight loss of 60 ibs in 6 months. Goal: Meet estimated nutritional needs Progressing towards goal. We will continue current goal. Pt current nutrition is Heart Healthy with Ensure compact BID. Last recorded weight is 68 kg, no new weight to report. Bowel Motility:+BM reported 11/24 Labs Reviewed:BUN 8,Cr 0.6,Glu 60,Alb 2.9,Na 128,Hgb 12.5,Hct 38.0 Meds Noted:Cipro,Morphine Sulfate,MVI,Zofran,Dilaudid. Additional Notes: Patient seen today for nutrition follow up. He states to not typically eating breakfast. Nursing states blood sugars were low today, Glu 60. PO intake was encouraged. Overall intake has been 50-75% of heart healthy diet with Ensure compact BID providing an additional 220 kcals and 9 gms protein. Monitoring: Will monitor every 5 days.
[2020-11-25 10:50] LABS: Glucose Point of Care 106 mg/dl (65-105)
[2020-11-25 14:00] VITALS: BP 98/54; PULSE 72; RESP 16; TEMP 36.7; O2SAT 97
[2020-11-25] MEDS: HYDROmorphone HCL (*CRX) 1 MG TABLET PO (15:52)
--- NOTE | 2020-11-25 16:12 | PM.DS ---
DS: Admitting Diagnosis Admitting Diagnosis abdominal pain DS: Discharge Diagnosis Discharge Diagnosis (1) Alcoholic cirrhosis of liver with ascites: Code(s): K70.31 - Alcoholic cirrhosis of liver with ascites Status: Acute Assessment and Plan: -Meld score 22 -patient will need to establish care with printing equipment mechanic for his alcohol cirrhosis -patient needs to establish care with PCP as well, patient may need future paracenteses - with his hypotension we were not able to start any diuretics or beta-blockers at this time. Blood pressure has been 90s systolic. (2) SBP (spontaneous bacterial peritonitis): Code(s): K65.2 - Spontaneous bacterial peritonitis Status: Acute Assessment and Plan: -Completing antibiotics with ciprofloxacin 5 more days -Pain control with Percocet p.r.n. #7 tabs given - peritoneal fluid did not find any organisms however PMNs were greater than 250 and patient's symptoms appear to be improving with antibiotics (3) Decompensation of cirrhosis of liver: Code(s): K72.90 - Hepatic failure, unspecified without coma; K74.60 - Unspecified cirrhosis of liver Status: Acute (4) Alcohol abuse: Code(s): F10.10 - Alcohol abuse, uncomplicated Status: Acute Assessment and Plan: patient understands importance of alcohol cessation especially if he is going to be a transplant candidate DS: Summary Hospital Course Reason for hospitalization: Abdominal pain, ascites, concern for SBP Hospital Course: patient is a 45-year-old male with past medical history of alcohol abuse with history of withdrawal seizures who presents to ED with complaints of abdominal pain. His found to have ascites and was started on ciprofloxacin for SBP. Ascitic PMNs 311 which is greater than 250 suggesting SBP. His symptoms seem to be improving over next couple days, with pain control/paracentesis/antibiotics. he is tolerating a diet and felt much better after ascites was removed 1 L. we discussed his blood pressure being systolic in the 90s is too low for him to be started on diuretics Lasix or Aldactone as well as beta-karina. Patient will need to establish care with printing equipment mechanic / lace roller /PCP for further management of his cirrhosis. Patient has not had any problems with CIWA during his hospitalization, he states he quit drinking 3 weeks prior to admission. We discussed that he may need paracentesis again in the future as the fluid reaccumulates. Patient understands and is very grateful of our care. discharge patient with Rx ciprofloxacin and Percocet. Patient labs stable, vitals stable, patient is stable for discharge home to follow-up and establish with PCP and lace roller. he is advised to limit his p.o. intake of fluids to 1500 cc and keep a daily log of his weight. Patient understands and agrees with plan. Status at Discharge Cognitive/behavioral status at discharge: baseline Functional status at discharge: independent ambulation Overall status at discharge: patient is back to baseline Time Spent with Patient Time attestation: Total time spent providing and/or coordinating discharge services:35 Time spent: Greater than 30 minutes Exam Narrative: - GENERAL: No acute distress. distended abdomen and thin extremities, body habitus of cirrhotic. pleasant gentleman - EYES: EOMI. Anicteric. - HENT: Moist mucous membranes. edentulous - LUNGS: Clear to auscultation bilaterally, no wheezing, rhonchi, or rales. - CARDIOVASCULAR: Regular rate and rhythm. No murmur. - ABDOMEN: Soft, non-tender and non-distended. stretch sosa on his abdomen. No palpable masses. - EXTREMITIES: No edema. Peripheral pulses 2+. Non-tender. thin - NEUROLOGIC: No focal neurological deficits. CN II-XII grossly intact. - PSYCHIATRIC: Awake, Alert and oriented x 3. Appropriate mood and affect. - SKIN: No rashes or lesions. Warm. - LYMPH: No cervical lymphadenopathy. DS: Data Data Completed and
[2020-11-28 18:38] LABS: Glucose Peritoneal Fluid 104 mg/dL; LDH Peritoneal Fluid 32 U/L (<63); Total Protein Peritoneal Fluid <3.0 g/dL
[2020-11-28 19:55] LABS: Amylase Peritoneal Fluid 16 U/L; Lipase Peritoneal Fluid 56 U/L (<10)
[2020-11-28 22:31] LABS: Albumin Peritoneal Fluid 0.8 g/dL
== END 2020-11-25 17:55 | disposition home or self-care (01) | DRG 280 ==
LOC: ANHED 11-23 04:51 → ANH3MEDSUR 11-23 11:09
PROVIDERS: Admitting Provider Internal Medicine; Emergency Provider Emergency Medicine; Visit Provider Student in an Organized Health Care Education/Training Program
DX: K70.31 Alcoholic cirrhosis of liver with ascites (principal); K65.2 Spontaneous bacterial peritonitis; K76.6 Portal hypertension; F10.10 Alcohol abuse, uncomplicated; Y90.0 Blood alcohol level of less than 20 mg/100 ml; R74.01 Elevation of levels of liver transaminase levels; G40.909 Epilepsy, unspecified, not intractable, without status epilepticus; F17.210 Nicotine dependence, cigarettes, uncomplicated; Z88.0 Allergy status to penicillin; Z79.899 Other long term (current) drug therapy
CPT/HCPCS: 36415; 49083; 71046; 74177; 80048; 80053; 80076; 80307; 82042; 82150; 82945; 82948; 83615; 83690; 84157; 84478; 84484; 85025; 85610; 85730; 87070; 87075; 87205; 88104; 88108; 88305; 89051; 93005; 96374; 99285; A9270; J0744; J1170; J2270; J2405; Q9967

== ENCOUNTER 2021-05-17 17:38 | Emergency (ER) | payer OTHER, SELFPAY ==
[2021-05-17 17:41] VITALS: BP 132/63; PULSE 101; RESP 14; TEMP 37.3; O2SAT 100
--- NOTE | 2021-05-17 17:50 | PC.NURSE ---
Pt. appears very paranoid, however Pt. is answering questions appropriately. Fiance state Pt. has been increasingly paranoid over the last couple days. Pt. denies SI or HI.
--- NOTE | 2021-05-17 18:17 | PC.NURSE ---
Pt. took off running outside after fiance returned. Security aware and notified.
--- NOTE | 2021-05-17 18:21 | PC.NURSE ---
Addendum entered by Ida Dewey RN 05/17/21 18:33: charge nurse aware of situation Original Note: pt was seen by security running off property heading towards [facility]. Fiance aware and will bring patient back if able to.
== END 2021-05-17 18:00 | disposition left against medical advice (07) ==
LOC: ANHED 18:53
PROVIDERS: PCP Internal Medicine
DX: F19.239 Other psychoactive substance dependence with withdrawal, unspecified (principal)
CPT/HCPCS: 99199

== ENCOUNTER 2021-05-17 18:54 | Emergency (ER) | payer OTHER, SELFPAY ==
--- NOTE | ~2021-05-17 | XR_ITS ---
XR chest 1V portable DATE: 05/17/2021 21:28 INDICATION: Cough TECHNIQUE: Portable upright AP chest on 05/17/2021 at 2125 hours COMPARISON: 11/22/2020 PA and lateral chest FINDINGS: Normal heart size. No hilar or mediastinal enlargement. No pleural effusion or pulmonary va scular congestion or pneumothorax. Calcified pulmonary granuloma at right lung base no pulmonary infiltrate or consolidation. IMPRESSION: No active cardiopulmonary disease Reviewed, dictated and finalized at location A. OLOGIST
[2021-05-17 18:58] VITALS: BP 125/62; PULSE 102; RESP 14; TEMP 37.2; O2SAT 100
[2021-05-17 22:26] LABS: Basophils Percent Auto 0.4 % (0.2-1.2); Eosinophils Absolute Auto 0.1 K/mm3 (0-0.3); Eosinophils Percent Auto 1.2 % (0-4.4); Hemoglobin 11.1 g/dL (14.0-18.0); Immature Granulocyte Absolute 0.02 K/mm3 (0.00-0.031); Immature Granulocyte Percent A 0.4 % (0-0.5); Lymphocytes Absolute Auto 0.87 K/mm3 (0.9-3.2); Lymphocytes Percent Auto 16.8 % (18.3-44.2); Mean Corpuscular HGB Conc 34.7 g/dl (32-36); Mean Corpuscular Hemoglobin 33.6 pg (26-34); Mean Platelet Volume 9.8 fl (7.4-10.4); Monocytes Absolute Auto 0.6 K/mm3 (0.1-0.6); Monocytes Percent Auto 11.8 % (2.6-8.5); Neutrophils Absolute Auto 3.6 K/mm3 (1.3-6.7); Neutrophils Percent Auto 69.4 % (45.5-73.1); Platelet Count Result 121 k/mm3 (150-375); Red Cell Distribution Width 13.3 % (11.5-14.5); White Blood Count 5.2 K/mm3 (4.5-10.0)
[2021-05-17 22:42] LABS: Amphetamine Screen Urine Negative (Negative); Barbiturate Screen Urine Negative (Negative); Benzodiazepines Screen Urine Negative (Negative); Cannabinoid Screen Urine Positive (Negative); Cocaine Screen Urine Negative (Negative); Methadone Screen Urine Negative (Negative); Opiate Screen Urine Negative (Negative); Phencyclidine Screen Urine Negative (Negative)
[2021-05-17 23:02] LABS: SARS-CoV-2 RNA PCR Negative
[2021-05-17 23:09] LABS: Acetaminophen < 10 ug/mL (10-30); Ammonia 29 umol/L (9-30); Ethanol < 10 mg/dL (<10); Salicylate < 1.0 mg/dL (2-20)
--- NOTE | 2021-05-17 23:09 | ED.GENADULT ---
HPI - General Adult General Chief complaint: Unspecified Stated complaint: withdrawl Time Seen by Provider: 05/17/21 21:17 History of Present Illness HPI narrative: Patient is a 45-year-old gentleman who presents the emergency department with chief complaint of paranoid thoughts. Patient reports that he uses fentanyl and other drugs. Patient states that he tried to stop using yesterday and reports that he has been having thoughts that people are following. The patient denies chest pain denies shortness of breath patient denies use of benzodiazepines and denies alcohol. Patient denies suicidal or homicidal ideation the patient states he would like to get into treatment. Related Data Allergies Allergy/AdvReac Type Severity Reaction Status Date / Time Penicillins Allergy Intermediate Unknown Verified 03/28/21 14:36 Review of Systems Review of Systems: A 10 system review of systems was completed on the patient and is negative except for what is stated in the HPI. Nursing and ancillary documentation was reviewed. [facility] Past Medical History Medical History Alcohol abuse Alcohol abuse Blood in stool Blood urine Change in bowel function Change in weight Chronic cough Difficulty breathing Difficulty sleeping Dizziness Drowsiness Frequent urination Hair changes Irritable Jaundice Kidney disease Leg pain Memory loss Migraines Numbness Opiate abuse, episodic Painful joint Palpitations Sadness Seizure disorder Seizures Skin change Swollen joint Tired Tobacco abuse disorder Ulcer Vomiting Weakness Surgical History Surgical History History of exploratory laparotomy With partial large and small bowel resection and partial liver resection due to trauma Status post open reduction with internal fixation of fracture Left humerus Family History Family History Mother Lupus (systemic lupus erythematosus) Depression Family history of type 2 diabetes mellitus COPD (chronic obstructive pulmonary disease) Gall bladder disease Cancer Daughter Schizophrenia Sibling DVT (deep venous thrombosis) Father Alcoholism Cancer Depression Grandparent Alcoholism Breast cancer Social History Social History Social History: He currently lives with his fiancee of 2 years. He has 4 children ranging from age 23 downed age 10. His oldest daughter, who is 10 years old, is currently staying with his mother. He used to smoke up to 2 and half packs of cigarettes per day. He started smoking at age 14. He is down to 1 pack of cigarettes per day for the last year so. He drinks a 5th of vodka or whiskey a day. He reports experimenting with IV drug use. He does episodically abuse opiates that are not prescribed to him. Primary care physician: Dr. Jonathan Maria Smoking packs per day: 1 Smoking cigarettes per day: 20.0 Years smoked: 30 Smoking pack-years: 30.00 Smoking status: Current every day smoker Tobacco type: cigarettes and cigars Smokeless tobacco user: chewing tobacco Second hand tobacco smoke exposure: Yes Alcohol intake: former Drinks per week: 70 Substance use: current Substance use type: marijuana, opiates, painkillers, IV drugs and methamphetamine Other substance usage details: fentanyl, vicodin, methamphetamines Last use: 2 months ago Gender identity (if verbalized by the patient): Male Spiritual care concerns: No Exam Narrative: GENERAL: Well-appearing, well-nourished, and in no acute distress. HEAD: Normocephalic, atraumatic. EYES: PERRLA and EOMI. ENT: Nares clear, no rhinorrhea or epistaxis. Mucous membranes moist. NECK: Supple. CHEST: Clear to auscultation. No respiratory distress. HEART: Regular rate and rhythm.
[2021-05-17 23:10] LABS: Thyroid Stimulating Hormone 0.354 uIU/mL (0.465-4.680)
[2021-05-17 23:20] LABS: Lactic Acid Reflex 0.8 mmol/L (0.7-2.1)
[2021-05-17 23:32] LABS: Alanine Aminotransferase 44 U/L (4-50); Albumin Level 4.1 g/dL (3.5-5.1); Alkaline Phosphatase 116 U/L (38-126); Anion Gap 7 mmol/L (8-16); Aspartate Amino Transferase 64 U/L (17-59); Bilirubin,Total 1.9 mg/dL (0.2-1.3); Blood Urea Nitrogen 18 mg/dL (9-20); Calcium 9.5 mg/dL (8.4-10.2); Carbon Dioxide 24 mmol/L (22-30); Chloride 104 mmol/L (98-107); Estimated Glomerular Filt Rate > 60; Glucose 98 mg/dL (65-110); Potassium 3.8 mmol/L (3.4-5.0); Sodium 135 mmol/L (137-145)
[2021-05-17 23:32] LABS: Add Urine Microscopic? YES; Appearance Urine Clear (Clear); Bacteria Urine Trace /hpf; Bilirubin Urine Negative (Negative); Blood Urine Negative (Negative); Color Urine Yellow (Yellow); Glucose Urine UA Negative (Negative); Ketones Urine Trace mg/dL (Negative); Leukocyte Esterase Ur Negative LEU/UL (Negative); Mucus Urine Rare /lpf; Nitrate Urine Negative (Negative); Protein Urine Negative (Negative); RBC Urine 0-2 /hpf (0-2); Specific Grav Ur 1.018 (1.001-1.035); Urobilinogen Urine Negative mg/dL (<2.0); WBC Urine 0-3 /hpf
--- NOTE | 2021-05-18 00:01 | ECG_ITS ---
Measurements Intervals [place] Rate: 74 P: 75 ID: 151 QRS: 66 QRSD: 97 T: 68 QT: 392 QTc: 437 Interpretive Statements SINUS RHYTHM NORMAL ECG Electronically Signed On 05-18-2021 6:27:43 REPAIR SERVICE CLERK by Willem Ballard D.O.
[2021-05-18 01:14] VITALS: BP 110/62; PULSE 77; RESP 18; O2SAT 98
== END 2021-05-18 01:03 | disposition home or self-care (01) ==
PROVIDERS: Emergency Provider Emergency Medicine; PCP Internal Medicine
DX: F11.10 Opioid abuse, uncomplicated (principal); F19.10 Other psychoactive substance abuse, uncomplicated; F10.10 Alcohol abuse, uncomplicated; F22 Delusional disorders; Z20.822 Contact with and (suspected) exposure to COVID-19; G40.909 Epilepsy, unspecified, not intractable, without status epilepticus; Y90.0 Blood alcohol level of less than 20 mg/100 ml; F17.210 Nicotine dependence, cigarettes, uncomplicated; F17.290 Nicotine dependence, other tobacco product, uncomplicated; F17.220 Nicotine dependence, chewing tobacco, uncomplicated; N28.9 Disorder of kidney and ureter, unspecified
CPT/HCPCS: 36415; 71045; 80053; 80307; 81001; 82140; 83605; 84443; 85025; 93005; 99284; C9803; U0003; U0005

== ENCOUNTER 2021-07-18 17:43 | Emergency (ER) | payer OTHER, SELFPAY ==
--- NOTE | ~2021-07-18 | XR_ITS ---
XR foot LT min 3V DATE: 07/18/2021 18:18 INDICATION: Dropped 140 pounds on foot. Pain, swelling TECHNIQUE: 4 views COMPARISON: None FINDINGS: No fracture or dislocation, periosteal reaction or bone destruction is detected. IMPRESSION: No fracture or dislocation Reviewed, dictated and finalized at location A. IMPRESSION: No fracture or dislocation
[2021-07-18 18:03] VITALS: BP 103/51; PULSE 93; RESP 14; TEMP 36.7; O2SAT 100
--- NOTE | 2021-07-18 20:32 | ED.LOWEXIN ---
HPI - Extremity Injury (Lower) General Chief Complaint: Extremity Injury, Lower Stated Complaint: left leg pain Time Seen by Provider: 07/18/21 20:00 Source: patient Mode of arrival: ambulatory Limitations: no limitations History of Present Illness HPI Narrative: This is a 45-year-old male that presents to the emergency department for left foot injury sustained just prior to arrival. Reports he dropped a very heavy log on his foot. Reports pain and swelling to the area. Reports decreased range of motion due to pain. Denies numbness. Related Data Allergies Allergy/AdvReac Type Severity Reaction Status Date / Time Penicillins Allergy Intermediate Unknown Verified 05/24/21 09:04 Review of Systems Review of Systems: CONSTITUTIONAL: Denies fever, MUSCULOSKELETAL: Reports joint pain, and myalgia. NEUROLOGIC: Denies numbness All systems reviewed & are unremarkable except as noted in HPI and below PMFSH Past Medical History Medical History Alcohol abuse Alcohol abuse Blood in stool Blood urine Change in bowel function Change in weight Chronic cough Difficulty breathing Difficulty sleeping Dizziness Drowsiness Frequent urination Hair changes Irritable Jaundice Kidney disease Leg pain Memory loss Migraines Numbness Opiate abuse, episodic Painful joint Palpitations Sadness Seizure disorder Seizures Skin change Swollen joint Tired Tobacco abuse disorder Ulcer Vomiting Weakness Surgical History Surgical History History of exploratory laparotomy With partial large and small bowel resection and partial liver resection due to trauma Status post open reduction with internal fixation of fracture Left humerus Family History Family History Mother Lupus (systemic lupus erythematosus) Depression Family history of type 2 diabetes mellitus COPD (chronic obstructive pulmonary disease) Gall bladder disease Cancer Daughter Schizophrenia Sibling DVT (deep venous thrombosis) Father Alcoholism Cancer Depression Grandparent Alcoholism Breast cancer Social History Social History Social History: He currently lives with his fiancee of 2 years. He has 4 children ranging from age 23 downed age 10. His oldest daughter, who is 10 years old, is currently staying with his mother. He used to smoke up to 2 and half packs of cigarettes per day. He started smoking at age 14. He is down to 1 pack of cigarettes per day for the last year so. He drinks a 5th of vodka or whiskey a day. He reports experimenting with IV drug use. He does episodically abuse opiates that are not prescribed to him. Primary care physician: Dr. Jonathan Maria Smoking packs per day: 0.5 Smoking cigarettes per day: 10.0 Years smoked: 30 Smoking pack-years: 15.00 Smoking status: Current every day smoker Tobacco type: cigarettes and cigars Smokeless tobacco user: chewing tobacco Second hand tobacco smoke exposure: Yes Alcohol intake: former Drinks per week: 70 Substance use: current Substance use type: opiates and methamphetamine Other substance usage details: fentanyl, vicodin, methamphetamines Last use: 2 months ago Gender identity (if verbalized by the patient): Male Spiritual care concerns: No Exam Narrative: GENERAL: Well-appearing, well-nourished, and in no acute distress. HEAD: Normocephalic, atraumatic. EYES: EOMI. EXTREMITIES: Normal range of motion. Mild edema about the left foot dorsal surface. Normal DP pulses. Normal sensation SKIN: Warm, dry, no rash. NEURO: No focal deficits. Alert and oriented x3. PSYCH: Normal mood and affect Course Vital Signs Vital signs: Vital Signs Temperature 98.0 F 07/18/21 18:03 Pulse Rate 93 07/18/21 18:03 Respira
== END 2021-07-18 21:38 | disposition home or self-care (01) ==
PROVIDERS: Emergency Provider Emergency Medicine; PCP Internal Medicine
DX: S97.82XA Crushing injury of left foot, initial encounter (principal); N28.9 Disorder of kidney and ureter, unspecified; G40.909 Epilepsy, unspecified, not intractable, without status epilepticus; F17.210 Nicotine dependence, cigarettes, uncomplicated; F17.290 Nicotine dependence, other tobacco product, uncomplicated; F17.220 Nicotine dependence, chewing tobacco, uncomplicated; W20.8XXA Other cause of strike by thrown, projected or falling object, initial encounter
CPT/HCPCS: 73630; 99283

== ENCOUNTER 2021-07-29 03:35 | Emergency (ER) | payer OTHER, SELFPAY ==
[2021-07-29 03:35] VITALS: BP 111/56; PULSE 86; RESP 13; TEMP 36.7; O2SAT 100
--- NOTE | 2021-07-29 03:41 | ED.GENADULT ---
HPI - General Adult General Chief complaint: Seizure Stated complaint: SEIZURE Source: patient, family, EMS and old records reviewed Mode of arrival: EMS Limitations: no limitations History of Present Illness HPI narrative: 45-year-old male history of seizures and medication noncompliance presents to the emerge department for evaluation after having a 2 to 3-minute tonic-clonic seizure at home. Patient was at home with his partner noticed he was having a seizure and called 911. Patient was postictal when EMS arrived. Upon arrival to ED the patient is more alert and appropriate. Patient states he has not been taking his Keppra and states his last seizure was a few months ago. Patient denies any pain or injury from the seizure. Patient does have a history of alcohol and polysubstance abuse but states he has been clean for the last few months. Patient states that he has had fewer seizures since he has stopped drinking alcohol. Patient stopped taking his Keppra because it makes him nauseous. Related Data Allergies Allergy/AdvReac Type Severity Reaction Status Date / Time Penicillins Allergy Intermediate Unknown Verified 05/24/21 09:04 Review of Systems Review of Systems: CONSTITUTIONAL: Denies fever, chills, or sweats. EYES: Denies visual changes, redness, or discharge. ENT: Denies rhinorrhea, congestion, sore throat, or otalgia. CARDIOVASCULAR: Denies chest pain, palpitations, or edema. RESPIRATORY: Denies cough or dyspnea. GASTROINTESTINAL: Denies abdominal pain, nausea, vomiting, or diarrhea. GENITOURINARY: Denies dysuria or hematuria. SKIN: Denies rash or itching. MUSCULOSKELETAL: Denies back pain, joint pain, or myalgia. NEUROLOGIC: seizure, post ictal PMFSH Past Medical History Medical History Alcohol abuse Alcohol abuse Blood in stool Blood urine Change in bowel function Change in weight Chronic cough Difficulty breathing Difficulty sleeping Dizziness Drowsiness Frequent urination Hair changes Irritable Jaundice Kidney disease Leg pain Memory loss Migraines Numbness Opiate abuse, episodic Painful joint Palpitations Sadness Seizure disorder Seizures Skin change Swollen joint Tired Tobacco abuse disorder Ulcer Vomiting Weakness Surgical History Surgical History History of exploratory laparotomy With partial large and small bowel resection and partial liver resection due to trauma Status post open reduction with internal fixation of fracture Left humerus Family History Family History Mother Lupus (systemic lupus erythematosus) Depression Family history of type 2 diabetes mellitus COPD (chronic obstructive pulmonary disease) Gall bladder disease Cancer Daughter Schizophrenia Sibling DVT (deep venous thrombosis) Father Alcoholism Cancer Depression Grandparent Alcoholism Breast cancer Social History Social History Social History: He currently lives with his fiancee of 2 years. He has 4 children ranging from age 23 downed age 10. His oldest daughter, who is 10 years old, is currently staying with his mother. He used to smoke up to 2 and half packs of cigarettes per day. He started smoking at age 14. He is down to 1 pack of cigarettes per day for the last year so. He drinks a 5th of vodka or whiskey a day. He reports experimenting with IV drug use. He does episodically abuse opiates that are not prescribed to him. Primary care physician: Dr. Jonathan Maria Smoking packs per day: 0.5 Smoking cigarettes per day: 10.0 Years smoked: 30 Smoking pack-years: 15.00 Smoking status: Current every day smoker Tobacco type: cigarettes and cigars Smokeless tobacco user: chewing tobacco Second hand tobacco smoke exposure: Yes Alcohol intake:
[2021-07-29 03:42] VITALS: PULSE 89
--- NOTE | 2021-07-29 03:43 | ECG_ITS ---
Measurements Intervals [place] Rate: 86 P: 59 [place]: 150 QRS: 38 QRSD: 94 T: 49 QT: 400 QTc: 480 Interpretive Statements SINUS RHYTHM NORMAL ECG COMPARED TO ECG 05/18/2021 00:49:05 NO SIGNIFICANT CHANGES Electronically Signed On 07-29-2021 11:12:53 CDT by Wisam Cline M.D.
[2021-07-29] MEDS: levETIRAcetam 1000MG/NACL100ML 1,000 MG/100 ML BAG 400 MG IVPB (04:12)
[2021-07-29 04:15] LABS: Basophils Percent Auto 0.8 % (0.2-1.2); Eosinophils Absolute Auto 0.2 K/mm3 (0-0.3); Eosinophils Percent Auto 3.1 % (0-4.4); Hematocrit 39.7 % (42.0-52.0); Hemoglobin 13.2 g/dL (14.0-18.0); Immature Granulocyte Absolute 0.01 K/mm3 (0.00-0.031); Immature Granulocyte Percent A 0.2 % (0-0.5); Immature Platelet Fraction Pct 2.4 % (0.9-11.2); Lymphocytes Absolute Auto 1.42 K/mm3 (0.9-3.2); Lymphocytes Percent Auto 29.6 % (18.3-44.2); Mean Corpuscular HGB Conc 33.2 g/dl (32-36); Mean Corpuscular Volume 96.4 fl (80-100); Mean Platelet Volume 9.6 fl (7.4-10.4); Monocytes Absolute Auto 0.7 K/mm3 (0.1-0.6); Monocytes Percent Auto 14.8 % (2.6-8.5); Neutrophils Absolute Auto 2.5 K/mm3 (1.3-6.7); Neutrophils Percent Auto 51.5 % (45.5-73.1); Platelet Count Result 148 k/mm3 (150-375); Red Blood Count 4.12 M/mm3 (4.6-6.20); Red Cell Distribution Width 13.5 % (11.5-14.5); White Blood Count 4.8 K/mm3 (4.5-10.0)
[2021-07-29 04:27] LABS: Alanine Aminotransferase 36 U/L (4-50); Albumin Level 4.3 g/dL (3.5-5.1); Alkaline Phosphatase 180 U/L (38-126); Anion Gap 11 mmol/L (8-16); Aspartate Amino Transferase 66 U/L (17-59); Bilirubin,Total 0.9 mg/dL (0.2-1.3); Blood Urea Nitrogen 24 mg/dL (9-20); Carbon Dioxide 20 mmol/L (22-30); Chloride 107 mmol/L (98-107); Estimated CRCL calculation 86 ml/min; Estimated Glomerular Filt Rate > 60; Glucose 108 mg/dL (65-110); Potassium 3.6 mmol/L (3.4-5.0); Sodium 138 mmol/L (137-145)
[2021-07-29 05:09] VITALS: BP 105/65; PULSE 74; RESP 16; O2SAT 100
== END 2021-07-29 05:10 | disposition home or self-care (01) ==
PROVIDERS: Emergency Provider Emergency Medicine; PCP Internal Medicine
DX: G40.909 Epilepsy, unspecified, not intractable, without status epilepticus (principal); T42.6X6A Underdosing of other antiepileptic and sedative-hypnotic drugs, initial encounter; Z91.128 Patient's intentional underdosing of medication regimen for other reason; N28.9 Disorder of kidney and ureter, unspecified; F17.210 Nicotine dependence, cigarettes, uncomplicated; F17.220 Nicotine dependence, chewing tobacco, uncomplicated; F17.290 Nicotine dependence, other tobacco product, uncomplicated
CPT/HCPCS: 36415; 80053; 85025; 85055; 93005; 96365; 99284; J1953

== ENCOUNTER 2021-08-16 13:03 | Emergency (ER) | payer OTHER, SELFPAY ==
--- NOTE | ~2021-08-16 | XR_ITS ---
EXAMINATION: XR hand RT min 3V DATE: 08/16/2021 16:10 INDICATION: Right thumb injury with possible wood/thorn foreign body TECHNIQUE: Posteroanterior, oblique and lateral views of the right hand were obtained. COMPARISON: None. FINDINGS: Alignment is normal. No fracture. Joint spaces are normal. Soft tissues are unremarkable. No radiopaq ue foreign bodies identified. IMPRESSION: 1. Negative right hand radiographs. No radiopaque foreign bodies identified although it should be not ed that organic material can have a similar density to the soft tissues and can be occult with plain radiographs. Reviewed, dictated and finalized at location B. IMPRESSION: 1. Negative right hand radiographs. No radiopaque foreign bodies identified alt steven it should be noted that organic material can have a similar density to th e soft tissues and can be occult with plain radiographs.
[2021-08-16 13:12] VITALS: BP 94/61; PULSE 64; RESP 12; TEMP 36.3; O2SAT 100
--- NOTE | 2021-08-16 15:16 | ED.UPPEXIN ---
HPI - Extremity Injury (Upper) General Chief Complaint: Extremity Injury, Upper Stated Complaint: foreign body in thumb Time Seen by Provider: 08/16/21 15:06 Source: patient Mode of arrival: ambulatory Limitations: no limitations History of Present Illness HPI narrative: Patient is a 45-year-old male complaining of right thumb pain and swelling that started 2 days ago. Patient states that he had a piece of break in his right thumb approximately a month ago which he dug out . Denies any other complaints. Related Data Allergies Allergy/AdvReac Type Severity Reaction Status Date / Time Penicillins Allergy Intermediate Unknown Verified 05/24/21 09:04 Review of Systems Review of Systems: Per HPI All systems reviewed & are unremarkable except as noted in HPI and below PMFSH Past Medical History Medical History Alcohol abuse Alcohol abuse Blood in stool Blood urine Change in bowel function Change in weight Chronic cough Difficulty breathing Difficulty sleeping Dizziness Drowsiness Frequent urination Hair changes Irritable Jaundice Kidney disease Leg pain Memory loss Migraines Numbness Opiate abuse, episodic Painful joint Palpitations Sadness Seizure disorder Seizures Skin change Swollen joint Tired Tobacco abuse disorder Ulcer Vomiting Weakness Surgical History Surgical History History of exploratory laparotomy With partial large and small bowel resection and partial liver resection due to trauma Status post open reduction with internal fixation of fracture Left humerus Family History Family History Mother Lupus (systemic lupus erythematosus) Depression Family history of type 2 diabetes mellitus COPD (chronic obstructive pulmonary disease) Gall bladder disease Cancer Daughter Schizophrenia Sibling DVT (deep venous thrombosis) Father Alcoholism Cancer Depression Grandparent Alcoholism Breast cancer Social History Social History Social History: He currently lives with his fiancee of 2 years. He has 4 children ranging from age 23 downed age 10. His oldest daughter, who is 10 years old, is currently staying with his mother. He used to smoke up to 2 and half packs of cigarettes per day. He started smoking at age 14. He is down to 1 pack of cigarettes per day for the last year so. He drinks a 5th of vodka or whiskey a day. He reports experimenting with IV drug use. He does episodically abuse opiates that are not prescribed to him. Primary care physician: Dr. Jonathan Maria Smoking packs per day: 0.5 Smoking cigarettes per day: 10.0 Years smoked: 30 Smoking pack-years: 15.00 Smoking status: Current every day smoker Tobacco type: cigarettes and cigars Smokeless tobacco user: chewing tobacco Second hand tobacco smoke exposure: Yes Alcohol intake: former Drinks per week: 70 Substance use: current Substance use type: opiates and methamphetamine Other substance usage details: fentanyl, vicodin, methamphetamines Last use: 2 months ago Gender identity (if verbalized by the patient): Male Spiritual care concerns: No Exam Const: General: no acute distress and alert Orientation/consciousness: patient oriented x3 HENMT: Head: normal to inspection Eyes: Conjunctivae: conjunctivae normal Neck: Neck: normal visual inspection Resp: Effort & Inspection: normal respiratory effort Neuro: General: patient oriented x3 and moves all extremities Extrem: Other: Right thumb swelling, redness palmar aspect, full range of motion with pain, neurovascular is intact Course Vital Signs Vital signs: Vital Signs Temperature 36.3 C L 08/16/21 13:12 Pulse Rate 64 08/16/21 13:12 Respiratory Rate 12 08/16/21 13:12 Blood Pre
--- NOTE | 2021-08-16 15:23 | PC.NURSE ---
pt to exam room. pt states that he has been working on a house in the [employer], digging up concrete when he noticed a deformed area to right thumb. pt states he noticed it about a month ago. pt also noticed tiny areas on right upper arm. pt states he can feel something sharp in the wound.
[2021-08-16] MEDS: KETOROLAC 30 MG/ML VIAL (*BKC) IM (17:35)
== END 2021-08-16 18:40 | disposition home or self-care (01) ==
PROVIDERS: Emergency Provider Emergency Medicine; PCP Internal Medicine
DX: L03.011 Cellulitis of right finger (principal); F17.210 Nicotine dependence, cigarettes, uncomplicated; F17.220 Nicotine dependence, chewing tobacco, uncomplicated
CPT/HCPCS: 73130; 96372; 99283; J1885

== ENCOUNTER 2021-09-16 12:49 | Emergency (ER) | payer OTHER, SELFPAY ==
--- NOTE | ~2021-09-16 | XR_ITS ---
EXAMINATION: XR shoulder RT min 2V DATE: 09/16/2021 13:32 INDICATION: Right shoulder pain. TECHNIQUE: 4 views of right shoulder were obtained. COMPARISON: None. FINDINGS: Bone alignment is normal. No fracture. Joint spaces are normal. IMPRESSION: 1. Normal right shoulder. Reviewed, dictated and finalized at location A. IMPRESSION: 1. Normal right shoulder.
[2021-09-16 12:54] VITALS: BP 134/48; PULSE 65; RESP 18; TEMP 36.1; O2SAT 100
--- NOTE | 2021-09-16 13:02 | ED.UPPEXIN ---
HPI - Extremity Injury (Upper) General Chief Complaint: Extremity Injury, Upper Stated Complaint: Pulled Something in Right Shoulder Time Seen by Provider: 09/16/21 12:56 Source: patient Mode of arrival: ambulatory Limitations: no limitations History of Present Illness HPI narrative: Patient is 45 years old white male presented to the ED with right upper back and right shoulder pain after strenuous working out yesterday lifting weights. He denies any other injuries, fever, chills, nausea, vomiting, chest pain, shortness of breath. History of drug addiction, and liver cirrhosis Related Data Home Medications Medication Instructions Recorded Confirmed folic acid 1 mg tablet tablet 09/16/21 furosemide 40 mg tablet tablet 09/16/21 lactulose 10 gram/15 mL oral ml 09/16/21 solution multivitamin with folic acid 400 tablet PO 09/16/21 mcg tablet (Daily-Linda (with folic acid)) spironolactone 100 mg tablet tablet 09/16/21 thiamine mononitrate (vit B1) 100 tablet 09/16/21 09/16/21 mg tablet (Vitamin B-1 (mononitrate)) Allergies Allergy/AdvReac Type Severity Reaction Status Date / Time Penicillins Allergy Intermediate Unknown Verified 09/16/21 12:57 Review of Systems Review of Systems: All systems reviewed & are unremarkable except as noted in HPI and below PMFSH Past Medical History Medical History Alcohol abuse Alcohol abuse Blood in stool Blood urine Change in bowel function Change in weight Chronic cough Difficulty breathing Difficulty sleeping Dizziness Drowsiness Frequent urination Hair changes Irritable Jaundice Kidney disease Leg pain Memory loss Migraines Numbness Opiate abuse, episodic Painful joint Palpitations Sadness Seizure disorder Seizures Skin change Swollen joint Tired Tobacco abuse disorder Ulcer Vomiting Weakness Surgical History Surgical History History of exploratory laparotomy With partial large and small bowel resection and partial liver resection due to trauma Status post open reduction with internal fixation of fracture Left humerus Family History Family History Mother Lupus (systemic lupus erythematosus) Depression Family history of type 2 diabetes mellitus COPD (chronic obstructive pulmonary disease) Gall bladder disease Cancer Daughter Schizophrenia Sibling DVT (deep venous thrombosis) Father Alcoholism Cancer Depression Grandparent Alcoholism Breast cancer Social History Social History Social History: He currently lives with his fiancee of 2 years. He has 4 children ranging from age 23 downed age 10. His oldest daughter, who is 10 years old, is currently staying with his mother. He used to smoke up to 2 and half packs of cigarettes per day. He started smoking at age 14. He is down to 1 pack of cigarettes per day for the last year so. He drinks a 5th of vodka or whiskey a day. He reports experimenting with IV drug use. He does episodically abuse opiates that are not prescribed to him. Primary care physician: Dr. Jonathan Maria Smoking packs per day: 0.5 Smoking cigarettes per day: 10.0 Years smoked: 30 Smoking pack-years: 15.00 Smoking status: Current every day smoker Tobacco type: cigarettes and cigars Smokeless tobacco user: chewing tobacco Second hand tobacco smoke exposure: Yes Alcohol intake: former Drinks per week: 70 Substance use: current Substance use type: opiates and methamphetamine Other substance usage details: fentanyl, vicodin, methamphetamines Last use: 2 months ago Gender identity (if verbalized by the patient): Male Spiritual care concerns: No Exam Narrative: General appearance: Well-developed, well-nourished Skin: Normal color Neck: Supple, nonten
[2021-09-16] MEDS: KETOROLAC (*BKC) 60 MG/2 ML VIAL IM (14:21)
[2021-09-16] MEDS: CYCLOBENZAPRINE HCL 10 MG TABLET PO (14:21)
== END 2021-09-16 14:30 | disposition home or self-care (01) ==
PROVIDERS: Emergency Provider Emergency Medicine; PCP Internal Medicine
DX: M54.9 Dorsalgia, unspecified (principal); F17.210 Nicotine dependence, cigarettes, uncomplicated
CPT/HCPCS: 73030; 96372; 99283; A9270; J1885

== ENCOUNTER 2022-03-05 23:35 | Emergency (ER) | payer OTHER, SELFPAY ==
[2022-03-05 23:39] VITALS: BP 114/59; PULSE 64; RESP 16; TEMP 36.7; O2SAT 98
--- NOTE | 2022-03-06 00:06 | PC.NURSE ---
Pt approached triage desk and reports the bleeding has stopped. States he's going to go home. Pt advised of risks of leaving and benefits of staying. pt ambulated out of Ed with steady gait, in no obvious distress.
== END 2022-03-06 00:30 | disposition left against medical advice (07) ==
LOC: ANHED 03-06 00:11
PROVIDERS: PCP Internal Medicine
DX: R04.0 Epistaxis (principal)
CPT/HCPCS: 99199

== ENCOUNTER 2022-08-18 20:32 | Inpatient (IN) | payer OTHER, SELFPAY ==
--- NOTE | ~2022-08-18 | XR_ITS ---
EXAMINATION: XR chest-chest tube insert/pos INDICATION: Chest tube insertion TECHNIQUE: Portable AP chest at 0234 hours COMPARISON: 05/17/[address] of the same date FINDINGS: A right-sided chest tube has been inserted. There is a small persistent right apical pneumo thorax. There are minimal airspace opacities of the right lung base. No pleural effusion is identifie d. The cardiomediastinal silhouette is normal. IMPRESSION: 1. Right-sided chest tube insertion with tiny persistent right apical pneumothorax. 2. Airspace opacities of the right lung base, likely atelectasis. Reviewed, dictated and finalized at location A. IMPRESSION: 1. Right-sided chest tube insertion with tiny persistent right apical pneumotho rax. 2. Airspace opacities of the right lung base, likely atelectasis.
--- NOTE | ~2022-08-18 | XR_ITS ---
Portable chest x-ray Comparison: 08/21/2022 Clinical History: Chest tube, pneumothorax Findings: Right-sided chest tube is in place. No definite pneumothorax seen. Possible minimal bibasi lar pulmonary scarring or atelectasis. Cardiomediastinal silhouette is stable. Bones and soft tissue s are unremarkable. Impression: Right-sided chest tube without definite pneumothorax. Minimal bibasilar pulmonary scarring or atelectatic change. Reviewed, dictated and finalized at location . Impression: Right-sided chest tube without definite pneumothorax. Minimal bibasilar pulmonary scarring or atelectatic change.
--- NOTE | ~2022-08-18 | XR_ITS ---
EXAMINATION: XR chest 1V portable INDICATION: Pneumothorax TECHNIQUE: Portable AP chest at 1008 hours COMPARISON: 0817 hours FINDINGS: Position of the right chest drain is unchanged. The right-sided pneumothorax is decreased i n size with only a tiny persistent apical pneumothorax seen. No pleural effusion. The cardiomediastin al silhouette is normal. There are minimal right basilar airspace opacities, likely atelectasis. IMPRESSION: 1. Decreased right pneumothorax. Reviewed, dictated and finalized at location A.
--- NOTE | ~2022-08-18 | XR_ITS ---
EXAMINATION: XR chest 1V portable INDICATION: Right pneumothorax TECHNIQUE: Portable AP chest at 0954 hours COMPARISON: 08/19/2022 FINDINGS: The right chest tube is unchanged in position. No pneumothorax is identified. Right basilar airspace opacities have decreased. The cardiomediastinal silhouette is normal. There is no pleural e ffusion. IMPRESSION: 1. Right chest tube unchanged in position. No pneumothorax identified. Reviewed, dictated and finalized at location F.
--- NOTE | ~2022-08-18 | XR_ITS ---
Portable chest x-ray Comparison: 08/20/2022 Clinical History: Right chest tube Findings: Right-sided chest tube remains in place. Possible tiny right apical pneumothorax. Probable minimal bibasilar atelectatic change. Cardiomediastinal silhouette is stable. Bones and soft tissue s are unremarkable. Impression: Right-sided chest tube with possible tiny right apical pneumothorax. Minimal bibasilar atelectatic change. Reviewed, dictated and finalized at location M. Impression: Right-sided chest tube with possible tiny right apical pneumothorax. Minimal bibasilar atelectatic change.
--- NOTE | ~2022-08-18 | XR_ITS ---
EXAMINATION: XR chest 1V portable INDICATION: Pneumothorax TECHNIQUE: Portable AP chest at 0817 hours COMPARISON: 0234 hours FINDINGS: The tip of the chest drain now courses more medially and in the lower thorax relative to it s prior placement near the right lung apex. A small right pneumothorax has increased in size. No pleu ral effusion. The heart size is normal. There are minimal airspace opacities of the right lung base, likely atelectasis. IMPRESSION: 1. Tip of the chest drain now seen in the inferomedial aspect of the right thorax with slight increas e in size of a still small right apical pneumothorax. Reviewed, dictated and finalized at location A. IMPRESSION: 1. Tip of the chest drain now seen in the inferomedial aspect of the right thor ax with slight increase in size of a still small right apical pneumothorax.
--- NOTE | ~2022-08-18 | XR_ITS ---
EXAMINATION: XR chest 1V portable Exam Date/Time: 08/22/2022 14:40 CDT HISTORY: pneumothorax Comparison: Same date at 5:26 AM. RESULT: Lines, tubes, and devices: Interval chest tube removal on the right. Lungs and pleura: Linear bibasilar opacities likely representing atelectasis/scar, otherwise clear. Trace residual right apical pneumothorax. Cardiomediastinal silhouette: Stable. Other: No acute osseous or upper abdominal finding. Persistent subcutaneous gas along the right late ral chest. IMPRESSION: Trace residual right apical pneumothorax. Reviewed, dictated and finalized at location K.
--- NOTE | ~2022-08-18 | CT_ITS ---
EXAMINATION: CT chest abdomen pelvis w con DATE: 08/19/2022 00:55 INDICATION: Right upper quad and abdominal pain and right chest pain. TECHNIQUE: Computed tomography (CT) of the chest, abdomen, and pelvis was performed with 100 mL Omnip aque-350 intravenous contrast. Automated exposure control and iterative reconstruction technique were employed. The dose-length product was 337.68 mGy-cm. COMPARISON: CT abdomen pelvis dated 11/23/2020 FINDINGS: CHEST CT: Moderate-sized right pneumothorax. Opacities with bronchovascular crowding portions likely related to secondary atelectasis in the anterior right upper and middle lobes and posterior basilar right lower lobe. Prominent calcified right middle lobe nodule consistent with old granulomatous disease. Mild e mphysema with a prominent bleb at the right apex which could represent the etiology of the pneumothor ax. Left lung remains clear. No pleural effusions or left pneumothorax. Heart size is normal. No medi astinal shift or significant depression of the diaphragm to suggest tension pneumothorax. No pericard ial effusion. No pathologically enlarged thoracic lymphadenopathy. Bilateral gynecomastia. Old healed sternal fracture. No acute osseous abnormality. ABDOMEN/PELVIS CT: Diffuse hepatic steatosis with regions of focal sparing most prominent along the gallbladder fossa. T here is a nodular liver surface consistent with cirrhosis. Left splenorenal collaterals and distal es ophageal varices consistent with secondary portal venous hypertension. Gallbladder, spleen, pancreas, bilateral adrenal glands and left kidney are normal. 9 mm right renal cyst. A few scattered colonic diverticula without adjacent inflammatory stranding to suggest diverticulitis. Small bowel and append ix are normal. Bladder is normal. No free intraperitoneal gas or fluid. No pathologically enlarged ab dominal or pelvic lymphadenopathy. Mild lumbar levocurvature with moderate spondylosis. IMPRESSION: 1. Moderate-sized right pneumothorax which may be related to a ruptured right apical bleb associated with mild emphysema. This was discussed with Dr. Michele by Dr. Shaan Batista at 1:47 AM. 2. Cirrhosis with hepatic steatosis and portal venous hypertension including splenorenal collaterals and esophageal varices. Reviewed, dictated and finalized at location A. IMPRESSION: 1. Moderate-sized right pneumothorax which may be related to a ruptured right a pical bleb associated with mild emphysema. This was discussed with Dr. Michele by Dr. Shaan Batista at 1:47 AM. 2. Cirrhosis with hepatic steatosis and portal venous hypertension including sp lenorenal collaterals and esophageal varices.
[2022-08-18 20:40] VITALS: BP 122/99; PULSE 96; RESP 20; TEMP 36.3; O2SAT 97
[2022-08-18 21:11] LABS: Basophils Absolute Auto 0.1 K/mm3 (0.0-0.1); Basophils Percent Auto 1.2 % (0.2-1.2); Eosinophils Percent Auto 0.5 % (0-4.4); Hematocrit 45.8 % (42.0-52.0); Hemoglobin 16.2 g/dL (14.0-18.0); Immature Granulocyte Absolute 0.02 K/mm3 (0.00-0.031); Immature Granulocyte Percent A 0.3 % (0-0.5); Lymphocytes Percent Auto 25.5 % (18.3-44.2); Mean Corpuscular HGB Conc 35.4 g/dl (32-36); Mean Corpuscular Hemoglobin 34.1 pg (26-34); Mean Corpuscular Volume 96.4 fl (80-100); Mean Platelet Volume 10.2 fl (7.4-10.4); Monocytes Absolute Auto 1.1 K/mm3 (0.1-0.6); Monocytes Percent Auto 14.5 % (2.6-8.5); Neutrophils Absolute Auto 4.3 K/mm3 (1.3-6.7); Platelet Count Result 164 k/mm3 (150-375); Red Blood Count 4.75 M/mm3 (4.6-6.20); Red Cell Distribution Width 13.4 % (11.5-14.5); White Blood Count 7.4 K/mm3 (4.5-10.0)
[2022-08-18 21:21] LABS: Ammonia 16 umol/L (9-30)
[2022-08-18 21:22] LABS: Alanine Aminotransferase 48 U/L (6-50); Albumin Level 5.3 g/dL (3.5-5.1); Alkaline Phosphatase 126 U/L (38-126); Anion Gap 14 mmol/L (8-16); Aspartate Amino Transferase 85 U/L (17-59); Bilirubin,Total 1.2 mg/dL (0.2-1.3); Blood Urea Nitrogen 16 mg/dL (9-20); Calcium 9.7 mg/dL (8.4-10.2); Carbon Dioxide 25 mmol/L (22-30); Chloride 97 mmol/L (98-107); Estimated CRCL calculation 69 ml/min; Estimated Glomerular Filt Rate > 60; Glucose 111 mg/dL (65-110); Lipase 188 U/L (23-300); Potassium 3.7 mmol/L (3.4-5.0); Sodium 136 mmol/L (137-145)
--- NOTE | 2022-08-18 23:28 | ED.ABDPAIN ---
HPI - Abdominal Pain General Chief Complaint: Abdominal Pain Stated Complaint: abdominal Pain Time Seen by Provider: 08/18/22 23:14 History of Present Illness HPI narrative: This is a 46-year-old male, with history of alcohol induced cirrhosis, who presents to the emergency department complaining of right-sided abdominal pain for the past several hours. The patient states he noticed the pain this morning, it is described as dull and sharp, present in the right upper quadrant radiating towards the back. It is rated 10/10. He denies any known aggravating or alleviating factors. He vomited once today without blood and he denies fevers. Related Data Home Medications Medication Instructions Recorded Confirmed lactulose 10 gram/15 mL oral 15 ml PO DAILY 08/08/22 08/19/22 solution spironolactone 100 mg tablet 100 mg PO DAILY 08/08/22 08/19/22 furosemide 40 mg tablet 40 mg PO DAILY 08/19/22 08/19/22 Allergies Allergy/AdvReac Type Severity Reaction Status Date / Time Penicillins Allergy Intermediate Unknown Verified 08/19/22 05:31 acetaminophen AdvReac Other Verified 08/19/22 05:31 ibuprofen AdvReac Unknown Verified 08/19/22 05:31 Review of Systems Review of Systems: CONSTITUTIONAL: Denies fever, chills, or sweats. CARDIOVASCULAR: Denies chest pain, palpitations, or edema. RESPIRATORY: Denies cough or dyspnea. GASTROINTESTINAL: Right-sided abdominal pain denies nausea, vomiting, or diarrhea. GENITOURINARY: Denies dysuria or hematuria. SKIN: Denies rash or itching. MUSCULOSKELETAL: Right-sided back pain denies joint pain, or myalgia. NEUROLOGIC: Denies headache, numbness, dizziness, or weakness. PSYCHIATRIC: Denies anxiety or depression. [facility] Past Medical History Medical History Alcohol abuse Ascites (~11/2020) Chronic low back pain Cirrhosis, alcoholic Migraines Seizure disorder Tobacco abuse disorder Surgical History Surgical History History of exploratory laparotomy (~1992) With partial large and small bowel resection and partial liver resection due to trauma Status post open reduction with internal fixation of fracture (~2001) Left humerus Family History Family History Mother Lupus (systemic lupus erythematosus) Depression Family history of type 2 diabetes mellitus COPD (chronic obstructive pulmonary disease) Gall bladder disease Cancer Daughter Schizophrenia Sibling DVT (deep venous thrombosis) Father Alcoholism Cancer Depression Grandparent Alcoholism Breast cancer Social History Social History Social History: He currently lives with his fiancee of 2 years. He has 4 children ranging from age 23 downed age 10. His oldest daughter, who is 10 years old, is currently staying with his mother. He used to smoke up to 2 and half packs of cigarettes per day. He started smoking at age 14. He is down to 1 pack of cigarettes per day for the last year so. He drinks a 5th of vodka or whiskey a day. He reports experimenting with IV drug use. He does episodically abuse opiates that are not prescribed to him. Primary care physician: Dr. Jonathan Maria Smoking packs per day: 1 Smoking cigarettes per day: 20.0 Years smoked: 31 Smoking pack-years: 31.00 Smoking status: Current every day smoker Tobacco type: cigarettes and cigars Smokeless tobacco user: chewing tobacco Second hand tobacco smoke exposure: Yes Alcohol intake: current Drinks per week: 10 Substance use: current Substance use type: marijuana, opiates, methamphetamine and prescription drug Other substance usage details: fentanyl, vicodin, methamphetamines(Former use) In recovery Last use: 2 yrs Lack of Transportation: YES Lack of Food: Sometimes True Current Housing: I Have
[2022-08-19] VITALS (15 sets, daily range): BP systolic 113–126; BP diastolic 66–85; PULSE 72–107; RESP 13–21; TEMP 35.9–36.6; O2SAT 96–100; BMI 20.4
[2022-08-19] MEDS: KETOROLAC 30 MG/ML VIAL (*BKC) IV PUSH (00:16)
[2022-08-19] MEDS: MIDAZOLAM HCL (*CRX) 2 MG/2 ML VIAL 4 MG IV PUSH (02:30)
[2022-08-19 02:37] LABS: Appearance Urine Cloudy (Clear); Bacteria Urine None Seen /hpf; Bilirubin Urine Negative (Negative); Blood Urine Negative (Negative); Color Urine Dark Yellow (Yellow); Glucose Urine UA Negative (Negative); Hyaline Casts Urine Present /lpf; Ketones Urine 1+ mg/dL (Negative); Leukocyte Esterase Ur Negative LEU/UL (Negative); Nitrate Urine Negative (Negative); Non Pathogenic Casts >20; Protein Urine Trace mg/dL (Negative); Specific Grav Ur 1.025 (1.001-1.035); Squamous Epithelial Cell Urine None seen /hpf (Few); WBC Urine 0-5 /hpf
[2022-08-19 02:40] LABS: Add Urine Microscopic? YES
[2022-08-19] MEDS: MORPHINE SULFATE (*CRX) 4 MG/ML INJ IV PUSH (02:47)
[2022-08-19] MEDS: HYDROmorphone HCL INJ (*CRX) 1 MG/ML SYR IV PUSH (03:20)
--- NOTE | 2022-08-19 05:23 | ADMGEN ---
This patient, Boom Saravia, was admitted to Medical Room 349-01. Patient/family oriented to hospital policies and general routines including ID bracelet, bed and alarms, visiting hours, pain management, procedures, bathroom and other care routines, personal items, smoking policy, room service/diet, and visiting hours. Information on how to activate the Rapid Response Team has been discussed. Patient/Family are encouraged to report perceived risks to care and to ask questions if they do not understand what they are told or what they should do.
[2022-08-19] MEDS: HYDROmorphone HCL INJ (*CRX) 1 MG/ML SYR 0.5 MG IV PUSH ×4 (06:02→22:47)
--- NOTE | 2022-08-19 09:07 | ECG_ITS ---
Measurements Intervals [place] Rate: 94 P: 65 UT: 149 QRS: 30 QRSD: 90 T: 56 QT: 358 QTc: 448 Interpretive Statements SINUS RHYTHM COMPARED TO ECG 07/29/2021 03:41:04 NO SIGNIFICANT CHANGES Electronically Signed On 08-19-2022 12:17:27 CDT by Geraldo Segura M.D.
[2022-08-19] MEDS: ONDANSETRON INJ 4 MG/2 ML VIAL IV PUSH (09:08)
[2022-08-19] MEDS: DEXTROSE 5%/0.9% SOD CHL 1,000 ML 125 ML IV CONT ×2 (09:09→17:25)
[2022-08-19] MEDS: SPIRONOLACTONE 50 MG TABLET 100 MG PO (09:49)
[2022-08-19] MEDS: FUROSEMIDE 40 MG TABLET PO (09:49)
[2022-08-19] MEDS: NICOTINE (*PBKC) 21 MG PATCH 1 PATCH TRANSDERM (09:49)
[2022-08-19] MEDS: levETIRAcetam 250 MG TABLET 750 MG PO (09:49)
[2022-08-19] MEDS: THIAMINE HCL 200 MG/2 ML VIAL 100 MG IV PUSH (09:49)
[2022-08-19] MEDS: LACTULOSE 20 GM/30 ML UDC 10 GM PO (09:49)
[2022-08-19] MEDS: oxyCODONE HCL (*CRX) 5 MG TAB IR PO ×2 (13:01→20:46)
[2022-08-19] MEDS: chlordiazePOXIDE (*CRX) 25 MG CAPSULE PO ×2 (13:41→18:15)
[2022-08-19] MEDS: MENTHOL 10% / METHYL SALICYLATE 15% 57 GM TUBE 1 APPLIC TOPICAL (13:41)
--- NOTE | 2022-08-19 14:12 | PM.IMHP ---
H&P: HPI History of Present Illness Date/Time: 08/19/22 14:12 Chief Complaint: Right-sided abdominal pain Narrative: this is a 46-year-old male with a past medical history of alcoholic cirrhosis, alcohol abuse, drug abuse, tobacco abuse, and seizure disorder that presented to the ED on 08/19/2022 with chief complaint of a right sided abdominal pain that radiates to the back, neck and shoulder. Patient stated that his abdominal pain started approximately 10 hours to ED arrival and started out as a nagging pain that developed into a stabbing shooting pain. The radiating pain to the back, neck and shoulder all right-sided. He does have associated shortness of breath with this pain that is worse with exertion. patient did have 1 episode of emesis prior to arrival to the ED. He denies hematemesis and fevers. Patient's fiancee is in the room during the interview and patient has given consent to talk freely in front of her. She states that patient had been on the ground when she found him and is unsure whether he had a seizure or had blacked out from being intoxicated. Patient is unsure what happened during this time. Reports of this are very vague and hard to follow. Patient did admit to drinking about a pt and a half yesterday and he said that he was drinking due to the amount of pain he was in. Further questioning revealed patient has been on a 3 week [place] of alcohol intoxication and drinks approximately a pint and a half of vodka and or whiskey daily. Patient states that he has had withdrawal before and is unsure whether he has had seizure withdrawal or the seizures were due to his seizure disorder that he has had since he has been a child. He also has a history of IV drug use and opiate abuse although according to him, he has been clean for [address] chest abdomen pelvis performed revealing significant right-sided pneumothorax per ER physician. Patient's pneumothorax is suspected to be spontaneous. Patient did not report any traumatic events such as blunt force trauma or falls. Chest tube was placed by ER physician and General surgery was consulted to manage chest tube. Patient's labs and vital signs have remained stable. CIWA protocol initiated and patient placed on scheduled Librium due to extent of alcohol abuse. Patient's home medications reviewed and reconciled. Review of Systems Review of Systems: All systems reviewed & are unremarkable except as noted in HPI and below PMFSH Past Medical History Medical History Alcohol abuse Ascites (~11/2020) Chronic low back pain Cirrhosis, alcoholic Migraines Seizure disorder Tobacco abuse disorder Surgical History Surgical History History of exploratory laparotomy (~1992) With partial large and small bowel resection and partial liver resection due to trauma Status post open reduction with internal fixation of fracture (~2001) Left humerus Family History Family History Mother Lupus (systemic lupus erythematosus) Depression Family history of type 2 diabetes mellitus COPD (chronic obstructive pulmonary disease) Gall bladder disease Cancer Daughter Schizophrenia Sibling DVT (deep venous thrombosis) Father Alcoholism Cancer Depression Grandparent Alcoholism Breast cancer Social History Social History (Updated 08/19/22 @ 14:29 by Francisca Doty PA-C) Social History: He currently lives with his fiancee of 2 years. He has 4 children. Patient currently smokes 1 pack of cigarettes daily and has smoked for the past 35 years. Up until approximately 1 year ago patient smoke 2 and half packs a day. He started smoking at age 14. He drinks a 5th of vodka or whiskey a day. He reports experimenting with IV drug use and opiate abuse. He states that he has been clean for approximately 3 years. He
--- NOTE | 2022-08-19 14:23 | PM.CNGS ---
Assessment and Plan Assessment and plan (1) Spontaneous pneumothorax: Code(s): J93.83 - Other pneumothorax Status: Acute Assessment and Plan: Patient appears to have a spontaneous right pneumothorax which has been treated with placement of a thoracostomy tube in the emergency room by the emergency room physician. The right lung was then re-expanded on chest x-ray. His recent episode of pain is likely due to an adequate pain medications were out of the need for another chest tube. Chest x-ray looks okay today now and I will leave the chest tube on suction today. We will get a chest x-ray tomorrow and if the lung is re-expanded consider placement of right chest tube to water seal. Will decrease the interval between doses of Dilaudid for breakthrough pain and try to maintain him on oxycodone for oral pain medications. History of Present Illness Consult details Consult date: 08/19/22 Reason for consult: chest tube Narrative: The patient is a 46-year-old gentleman who has a history of alcoholic liver cirrhosis who presented to the emergency room with severe right upper quadrant abdominal pain. He underwent workup and was eventually found to have a right pneumothorax which was likely spontaneous in nature. He then underwent placement of a right thoracostomy tube in the emergency room by the ER physician which decompress the pneumothorax and on postprocedure chest x-ray seems to have completely reexpanded the right lung. He has been admitted to the medical floor to the hospitalist service and I have been asked to manage the right chest tube. Presently is complaining of having pain in the area the right chest tube. He seems uncomfortable but he has a long history of alcohol and IV drug use. Was given only 0.5mg of Dilaudid about 4hours ago and so he likely is having pain causing his restlessness. An EKG was just performed showing sinus tachycardia. Stat chest x-ray was performed showing right chest tube in place with full expansion of the right lung. He was given additional dose of IV pain medications and with the pain improved he tended to calm down. He has had a prior history of a pneumothorax in the past after a traumatic event. He has never had a spontaneous pneumothorax. He currently smokes about 2 and half packs of cigarettes per day. Review of Systems Review of Systems: The remainder of the review of systems to include constitutional, HEENT, cardiovascular, respiratory, GI, , integumentary, musculoskeletal, endocrine, immunologic, hematologic, psychiatric, and neurologic are all negative except for which is mentioned above in the HPI. [facility] Past Medical History Medical History Alcohol abuse Ascites (~11/2020) Chronic low back pain Cirrhosis, alcoholic Migraines Seizure disorder Tobacco abuse disorder Surgical History Surgical History History of exploratory laparotomy (~1992) With partial large and small bowel resection and partial liver resection due to trauma Status post open reduction with internal fixation of fracture (~2001) Left humerus Family History Family History Mother Lupus (systemic lupus erythematosus) Depression Family history of type 2 diabetes mellitus COPD (chronic obstructive pulmonary disease) Gall bladder disease Cancer Daughter Schizophrenia Sibling DVT (deep venous thrombosis) Father Alcoholism Cancer Depression Grandparent Alcoholism Breast cancer Social History Social History Social History: He currently lives with his fiancee of 2 years. He has 4 children. Patient currently smokes 1 pack of cigarettes daily and has smoked for the past 35 years. Up until approximately 1 year ago patient smoke 2 and half packs a day. He started smoking at age
[2022-08-19 19:45] LABS: Ammonia 32 umol/L (9-30)
[2022-08-19 19:46] LABS: Cholesterol 157 mg/dL (0-200); HDL Direct 78 mg/dL; Magnesium 1.7 mg/dL (1.6-2.3); Triglycerides 35 mg/dL (<150)
[2022-08-19 19:58] LABS: LDL Cholesterol Direct 55 mg/dL
[2022-08-19 20:55] LABS: Folic Acid 11.1 ng/mL (2.76->20)
[2022-08-19 21:16] LABS: Alanine Aminotransferase 37 U/L (6-50); Albumin Level 4.5 g/dL (3.5-5.1); Alkaline Phosphatase 69 U/L (38-126); Aspartate Amino Transferase 60 U/L (17-59); Bilirubin,Total 2.2 mg/dL (0.2-1.3)
[2022-08-19 21:24] LABS: Troponin I < 0.012 ng/mL (0.000-0.034)
[2022-08-20] MEDS: chlordiazePOXIDE (*CRX) 25 MG CAPSULE PO ×3 (00:42→12:53)
[2022-08-20] MEDS: HYDROmorphone HCL INJ (*CRX) 1 MG/ML SYR 0.5 MG IV PUSH ×5 (00:43→21:22)
[2022-08-20 00:46] LABS: Glucose Point of Care 119 mg/dl (65-105)
[2022-08-20] MEDS: DEXTROSE 5%/0.9% SOD CHL 1,000 ML 125 ML IV CONT ×2 (00:52→14:00)
[2022-08-20] MEDS: oxyCODONE HCL (*CRX) 5 MG TAB IR PO ×4 (03:21→23:55)
[2022-08-20 04:16] VITALS: BP 122/80; PULSE 70; RESP 18; TEMP 36.1; O2SAT 99
[2022-08-20 06:18] LABS: Anion Gap 4 mmol/L (8-16); Blood Urea Nitrogen 16 mg/dL (9-20); Calcium 8.2 mg/dL (8.4-10.2); Carbon Dioxide 32 mmol/L (22-30); Chloride 97 mmol/L (98-107); Estimated CRCL calculation 95 ml/min; Estimated Glomerular Filt Rate > 60; Glucose 82 mg/dL (65-110); Potassium 3.6 mmol/L (3.4-5.0); Sodium 133 mmol/L (137-145)
[2022-08-20 06:33] LABS: Glucose Point of Care 101 mg/dl (65-105)
[2022-08-20 07:57] LABS: Basophils Percent Auto 0.4 % (0.2-1.2); Eosinophils Absolute Auto 0.1 K/mm3 (0-0.3); Eosinophils Percent Auto 2.4 % (0-4.4); Hematocrit 36.8 % (42.0-52.0); Hemoglobin 12.3 g/dL (14.0-18.0); Immature Granulocyte Absolute 0.01 K/mm3 (0.00-0.031); Immature Granulocyte Percent A 0.2 % (0-0.5); Immature Platelet Fraction Pct 6.3 % (0.9-11.2); Lymphocytes Absolute Auto 1.03 K/mm3 (0.9-3.2); Lymphocytes Percent Auto 20.9 % (18.3-44.2); Mean Corpuscular HGB Conc 33.4 g/dl (32-36); Mean Corpuscular Hemoglobin 33.5 pg (26-34); Mean Corpuscular Volume 100.3 fl (80-100); Mean Platelet Volume 10.4 fl (7.4-10.4); Monocytes Absolute Auto 0.5 K/mm3 (0.1-0.6); Monocytes Percent Auto 10.5 % (2.6-8.5); Neutrophils Absolute Auto 3.2 K/mm3 (1.3-6.7); Neutrophils Percent Auto 65.6 % (45.5-73.1); Platelet Count Result 70 k/mm3 (150-375); Red Blood Count 3.67 M/mm3 (4.6-6.20); Red Cell Distribution Width 13.2 % (11.5-14.5); White Blood Count 4.9 K/mm3 (4.5-10.0)
[2022-08-20] MEDS: LACTULOSE 20 GM/30 ML UDC 10 GM PO (09:33)
[2022-08-20] MEDS: SPIRONOLACTONE 50 MG TABLET 100 MG PO (09:34)
[2022-08-20] MEDS: FUROSEMIDE 40 MG TABLET PO (09:34)
[2022-08-20] MEDS: levETIRAcetam 250 MG TABLET 750 MG PO (09:34)
[2022-08-20] MEDS: THIAMINE HCL 200 MG/2 ML VIAL 100 MG IV PUSH (09:34)
[2022-08-20] MEDS: NICOTINE (*PBKC) 21 MG PATCH 1 PATCH TRANSDERM (09:35)
[2022-08-20 12:42] LABS: Glucose Point of Care 98 mg/dl (65-105)
[2022-08-20 13:13] LABS: Alanine Aminotransferase 36 U/L (6-50); Albumin Level 3.8 g/dL (3.5-5.1); Alkaline Phosphatase 69 U/L (38-126); Aspartate Amino Transferase 57 U/L (17-59); Bilirubin,Total 2.5 mg/dL (0.2-1.3)
[2022-08-20 14:00] VITALS: BP 115/73; PULSE 77; RESP 18; TEMP 37; O2SAT 100
[2022-08-20 14:24] LABS: Ammonia 14 umol/L (9-30)
--- NOTE | 2022-08-20 15:20 | PM.PNGS ---
Progress Note: A&P Assessment and Plan (1) Spontaneous pneumothorax: Code(s): J93.83 - Other pneumothorax Status: Acute Assessment and Plan: He still has a small of right residual apical pneumothorax and a small air leak with deep cough in the water seal chamber. Will need to keep him to suction on the Pleur-evac for the right chest tube today. Repeat chest x-ray tomorrow. Given duration of tip of the thoracostomy tube if he continues to have a right apical pneumothorax and air leak he might need formal operative placement of a larger right chest tube directed towards the right apex. If this is needed with likely taken to the operating room tomorrow to have a chest tube placed under IV sedation or general anesthetic. Continue present care. Subjective Subjective Date/Time Seen: 08/20/22 15:20 Interval history: Patient is breathing okay he is on 4L of supplemental nasal cannula oxygen. He can take deep breaths as long as he continues on his scheduled pain medications. Chest x-ray done today reveals stable small apical right pneumothorax with the chest to tip graded to the mid lung regions. Exam Resp: Effort & Inspection: normal respiratory effort Other: Slight decreased breath sounds in the right apex. He still has a small air leak deep cough and a water-seal chamber. Cardio: Rate: regular rate Rhythm: regular rhythm Psych: Mental Status: mental status grossly normal Affect: normal affect Objective Data Vital Signs Vital Signs: Vital Signs - 24 hr 08/19/22 20:47 08/19/22 20:00 08/19/22 20:00 Temperature 36.6 C Pulse Rate 72 Respiratory Rate 20 Blood Pressure 124/72 124/72 Pulse Oximetry 100 100 Oxygen Delivery Nasal Cannula Oxygen Flow Rate 1 08/20/22 04:16 Temperature 36.1 C L Pulse Rate 70 Respiratory Rate 18 Blood Pressure 122/80 Pulse Oximetry 99 Oxygen Delivery Oxygen Flow Rate Intake/Output Intake/Output: Intake & Output 08/17/22 08/18/22 08/19/22 08/20/22 23:59 23:59 23:59 23:59 Intake Total 2120 2340 Output Total 225 825 Balance 1895 1515 Meds/Results Medications: Active Medications Generic Name Dose Route Start Last Admin Trade Name Freq PRN Reason Stop Dose Admin Chlordiazepoxide HCl 25 mg 08/19/22 12:00 08/20/22 12:53 Chlordiazepoxide (*Crx) 25 Mg Capsule PO 25 mg Q6HR ABIEL Administration Furosemide 40 mg 08/19/22 09:00 08/20/22 09:34 Furosemide 40 Mg Tablet PO 40 mg DAILY ABIEL Administration Hydromorphone HCl 0.5 mg 08/19/22 09:58 08/20/22 12:27 Hydromorphone Hcl Inj (*Crx) 1 Mg/Ml Syr IV PUSH 0.5 mg Q2H PRN Administration Pain Rated 7-10 Dextrose/Sodium Chloride 1,000 mls @ 125 mls/hr 08/19/22 08:40 08/20/22 14:00 Dextrose 5% Sodium Chloride 0.9% IV CONT 125 mls/hr .Q8H ABIEL Administration Lactulose 10 gm 08/19/22 09:00 08/20/22 09:33 Lactulose 20 Gm/30 Ml Udc PO 10 gm QAM ABIEL Administration Levetiracetam 750 mg 08/19/22 09:00 08/20/22 09:34 Levetiracetam 250 Mg Tablet PO 750 mg DAILY ABIEL Administration Lorazepam 2 mg 08/19/22 08:30 Lorazepam Inj (*Crx) 2 Mg/Ml Vial IV PUSH Q4H PRN Withdrawal Menthol/Methyl Salicylate 1 applic 08/19/22 12:35 08/19/22 13:41 Menthol 10% / Methyl Salicylate 15% 57 Gm Tube TOPICAL 1 applic BID PRN Administration Muscle/Joint Pain Nicotine 1 patch 08/19/22 09:00 08/20/22 09:35 Nicotine (*Pbkc) 21 Mg Patch TRANSDERM 1 patch QAM ABIEL Administration Ondansetron HCl 4 mg 08/19/22 08:30 08/19/22 09:08 Ondansetron Inj 4 Mg/2 Ml Vial IV PUSH 4 mg Q6H PRN Administration Nausea And Vomiting Oxycodone HCl 5 mg 08/19/22 12:03 08/20/22 09:35 Oxycodone Hcl (*Crx) 5 Mg Tab Ir PO 5 mg Q6H PRN Administration Pain Rated 7-10 Spironolactone 100 mg 08/19/22 09:00 08/20/22 09:34 Spironolactone 50 Mg Tablet PO 100 mg DAILY ABIEL Administration Thiamine
[2022-08-20 16:12] VITALS: BP 115/73; PULSE 77; RESP 18; TEMP 37; O2SAT 100
--- NOTE | 2022-08-20 16:15 | PM.IMPN ---
Progress Note: A&P Assessment and Plan (1) Spontaneous pneumothorax: Code(s): J93.83 - Other pneumothorax Status: Acute Assessment and Plan: Patient presented with right-sided abdominal pain that radiated to the back, neck and shoulder. CT chest abdomen pelvis with spontaneous right-sided pneumothorax which could be related to ruptured right apical bleb associated with mild emphysema. Chest tube placed on 08/19/2022. General surgery consulted Management per General surgery Analgesics as needed. (2) Cirrhosis, alcoholic: Code(s): K70.30 - Alcoholic cirrhosis of liver without ascites Status: Chronic Assessment and Plan: Counseled on alcohol consumption cessation. offered the patient several resources. Restart patient's home medication of lactulose, spironolactone and furosemide. CT chest abdomen pelvis revealing cirrhosis with hepatic steatosis and portal venous hypertension including splenorenal collaterals and esophageal varices. CIWA Protocol initiated Transition to Librium 25 mg PRN for CIWA >8 P.r.n. Ativan for withdrawal and CIWA greater than 15 Thiamine 100 mg IV daily History of alcohol withdrawal and seizures. (3) Tobacco abuse disorder: Code(s): Z72.0 - Tobacco use Status: Chronic Assessment and Plan: Nicotine patch as needed. Smoking cessation discussed with the patient. (4) Seizure disorder: Code(s): G40.909 - Epilepsy, unspecified, not intractable, without status epilepticus Status: Chronic Assessment and Plan: Patient stated that he had gone without his Keppra for a couple days and was unable to get his medication refilled until yesterday. He believes that he did have a seizure in the time he was not taking it. Keppra restarted at 750 mg daily. Subjective Date/time seen: 08/20/22 16:15 Interval history: Patient in bed complaining of right-sided chest pain. Patient is very tender on the right side of his body from his waist to his neck. Other than pain he is not complaining of much. Pain management per General surgery. He denies nausea and vomiting, hallucinations and tremor has improved. Review of Systems Review of Systems: All systems reviewed & are unremarkable except as noted in HPI and below Exam Narrative: GENERAL: Comfortable, no acute distress, very thin HENMT: moist mucous membranes EYES: EOM intact b/l NECK: no lymphadenopathy RESPIRATORY: Clear to auscultation CARDIO/ CHEST: RRR, chest tube placement on the right side with bandages clean and dry. GI: soft, right upper quadrant tenderness to palpation, bowel sounds present SKIN: [id number] petechiae and hemosiderin deposits EXTREMITIES: no edema, redness or tenderness Objective Data Vital Signs Vital Signs: Vital Signs - 24 hr 08/19/22 20:47 08/19/22 20:00 08/19/22 20:00 Temperature 98 F Pulse Rate 72 Respiratory Rate 20 Blood Pressure 124/72 124/72 Pulse Oximetry 100 100 Oxygen Delivery Nasal Cannula Oxygen Flow Rate 1 08/20/22 04:16 08/20/22 14:00 08/20/22 16:12 Temperature 97 F L 98.6 F 98.6 F Pulse Rate 70 77 77 Respiratory Rate 18 18 18 Blood Pressure 122/80 115/73 115/73 Pulse Oximetry 99 100 100 Oxygen Delivery Oxygen Flow Rate Intake/Output Intake/Output: Intake & Output 08/17/22 08/18/22 08/19/22 08/20/22 23:59 23:59 23:59 23:59 Intake Total 2120 2580 Output Total 225 1025 Balance 1895 1555 Meds/Results Medications: Active Medications Generic Name Dose Route Start Last Admin Trade Name Freq PRN Reason Stop Dose Admin Chlordiazepoxide HCl 25 mg 08/19/22 12:00 08/20/22 12:53 Chlordiazepoxide (*Crx) 25 Mg Capsule PO 25 mg Q6HR ABIEL Administration Furosemide 40 mg 08/19/22 09:00 08/20/22 09:34 Furosemide 40 Mg Tablet PO 40 mg DAILY ABIEL Administration Hydromorphone HCl 0.5 mg 08/19/22 09:58 08/20
[2022-08-20 18:56] LABS: Glucose Point of Care 108 mg/dl (65-105)
[2022-08-20 19:28] VITALS: BP 120/70; PULSE 69; RESP 20; TEMP 36.9; O2SAT 97
[2022-08-21 00:53] LABS: Glucose Point of Care 136 mg/dl (65-105)
[2022-08-21] MEDS: HYDROmorphone HCL INJ (*CRX) 1 MG/ML SYR 0.5 MG IV PUSH ×7 (00:59→23:23)
[2022-08-21] MEDS: DEXTROSE 5%/0.9% SOD CHL 1,000 ML 125 ML IV CONT ×2 (01:04→08:19)
[2022-08-21 04:15] VITALS: BP 125/61; PULSE 84; RESP 20; TEMP 36.8; O2SAT 97
[2022-08-21 06:04] LABS: Glucose Point of Care 117 mg/dl (65-105)
[2022-08-21] MEDS: oxyCODONE HCL (*CRX) 5 MG TAB IR PO ×2 (06:07→18:10)
[2022-08-21 08:00] VITALS: O2SAT 100
[2022-08-21 08:15] VITALS: O2SAT 100
[2022-08-21] MEDS: FUROSEMIDE 40 MG TABLET PO (08:23)
[2022-08-21] MEDS: MENTHOL 10% / METHYL SALICYLATE 15% 57 GM TUBE 1 APPLIC TOPICAL (08:23)
[2022-08-21] MEDS: LACTULOSE 20 GM/30 ML UDC 10 GM PO (08:24)
[2022-08-21] MEDS: levETIRAcetam 250 MG TABLET 750 MG PO (08:24)
[2022-08-21] MEDS: SPIRONOLACTONE 50 MG TABLET 100 MG PO (08:25)
[2022-08-21] MEDS: NICOTINE (*PBKC) 21 MG PATCH 1 PATCH TRANSDERM (08:25)
[2022-08-21] MEDS: THIAMINE HCL 200 MG/2 ML VIAL 100 MG IV PUSH (08:26)
[2022-08-21 09:12] LABS: Hematocrit 42.4 % (42.0-52.0); Hemoglobin 14.1 g/dL (14.0-18.0); Immature Platelet Fraction Pct 8.4 % (0.9-11.2); Mean Corpuscular HGB Conc 33.3 g/dl (32-36); Mean Corpuscular Hemoglobin 33.8 pg (26-34); Mean Corpuscular Volume 101.7 fl (80-100); Mean Platelet Volume 10.2 fl (7.4-10.4); Platelet Count Result 72 k/mm3 (150-375); Red Blood Count 4.17 M/mm3 (4.6-6.20); Red Cell Distribution Width 13.3 % (11.5-14.5); White Blood Count 5.8 K/mm3 (4.5-10.0)
[2022-08-21 09:23] LABS: Alanine Aminotransferase 53 U/L (6-50); Albumin Level 4.7 g/dL (3.5-5.1); Alkaline Phosphatase 102 U/L (38-126); Anion Gap 6 mmol/L (8-16); Aspartate Amino Transferase 94 U/L (17-59); Bilirubin,Total 1.3 mg/dL (0.2-1.3); Blood Urea Nitrogen 12 mg/dL (9-20); Calcium 8.8 mg/dL (8.4-10.2); Carbon Dioxide 26 mmol/L (22-30); Chloride 101 mmol/L (98-107); Estimated CRCL calculation 95 ml/min; Estimated Glomerular Filt Rate > 60; Glucose 84 mg/dL (65-110); Potassium 3.8 mmol/L (3.4-5.0); Sodium 133 mmol/L (137-145)
[2022-08-21 12:21] LABS: Glucose Point of Care 86 mg/dl (65-105)
[2022-08-21 14:00] VITALS: BP 126/77; PULSE 88; RESP 20; TEMP 37.1; O2SAT 100
--- NOTE | 2022-08-21 15:22 | PM.PNGS ---
Progress Note: A&P Assessment and Plan (1) Spontaneous pneumothorax: Code(s): J93.83 - Other pneumothorax Status: Acute Assessment and Plan: Chest x-ray this morning showed tiny right pneumothorax. Chest tube still in place. He has a persistent air leak today. Will go by again this afternoon and try to take down and reinforce the dressing, but discussed with Dr. Villavicencio. Will place to water seal this afternoon. Repeat chest x-ray tomorrow morning. Will have to consider transfer to a facility where thoracic surgery would be available for possible VATS if this does not resolve with the chest tube. Plan I have discussed the patient's case and plan of care with Dr. Villavicencio. Subjective Subjective Date/Time Seen: 08/21/22 12:22 Patient reports: no new complaints, still having pain (right-sided chest pain at chest tube site) and tolerating a regular diet Interval history: This is a 46 yo M who presented with a right pneumothorax. He is an alcoholic with a history of polysubstance abuse. He had a chest tube placed in ER and has had a pleural leak on exam yesterday. Chart reviewed. Today, he is still complaining of pain at his chest tube site, but tolerable. He denies any shortness of breath. Chest tube is still to 20 cm wall suction. Chest x-ray this morning showed tiny right apical pneumothorax. Review of Systems Review of Systems: All systems reviewed & are unremarkable except as noted in HPI and below Exam Const: General: no acute distress Orientation/consciousness: patient oriented x3 Chest: Chest palpation & inspection: no crepitus Resp: Effort & Inspection: normal respiratory effort Auscultation: diminished lung sounds (slightly diminished in right apex ) Other: Chest tube on 20 cm suction with dressing dry and intact, air leak noted with cough Cardio: Rate: regular rate Rhythm: regular rhythm Objective Data Vital Signs Vital Signs: Vital Signs - 24 hr 08/20/22 16:12 08/20/22 19:28 08/21/22 04:15 Temperature 98.6 F 98.4 F 98.2 F Pulse Rate 77 69 84 Respiratory Rate 18 20 20 Blood Pressure 115/73 120/70 125/61 Pulse Oximetry 100 97 97 Oxygen Delivery Oxygen Flow Rate 08/21/22 08:00 Temperature Pulse Rate Respiratory Rate Blood Pressure Pulse Oximetry 100 Oxygen Delivery Nasal Cannula Oxygen Flow Rate 2 Intake/Output Intake/Output: Intake & Output 04/28/23 04/29/23 04/30/23 05/01/23 23:59 23:59 23:59 23:59 Intake Total 2120 4060 1705 Output Total 225 1325 1050 Balance 1895 6310 638 Meds/Results Medications: Active Medications Generic Name Dose Route Start Last Admin Trade Name Freq PRN Reason Stop Dose Admin Chlordiazepoxide HCl 25 mg 08/20/22 16:17 Chlordiazepoxide (*Crx) 25 Mg Capsule PO Q6HR PRN Alcohol Withdrawal Furosemide 40 mg 08/19/22 09:00 08/21/22 08:23 Furosemide 40 Mg Tablet PO 40 mg DAILY ABIEL Administration Hydromorphone HCl 0.5 mg 08/19/22 09:58 08/21/22 14:39 Hydromorphone Hcl Inj (*Crx) 1 Mg/Ml Syr IV PUSH 0.5 mg Q2H PRN Administration Pain Rated 7-10 Lactulose 10 gm 08/19/22 09:00 08/21/22 08:24 Lactulose 20 Gm/30 Ml Udc PO 10 gm QAM ABIEL Administration Levetiracetam 750 mg 08/19/22 09:00 08/21/22 08:24 Levetiracetam 250 Mg Tablet PO 750 mg DAILY ABIEL Administration Lorazepam 2 mg 08/19/22 08:30 Lorazepam Inj (*Crx) 2 Mg/Ml Vial IV PUSH Q4H PRN Withdrawal Menthol/Methyl Salicylate 1 applic 08/19/22 12:35 08/21/22 08:23 Menthol 10% / Methyl Salicylate 15% 57 Gm Tube TOPICAL 1 applic BID PRN Administration Muscle/Joint Pain Nicotine 1 patch 08/19/22 09:00 08/21/22 08:25 Nicotine (*Pbkc) 21 Mg Patch TRANSDERM 1 patch QAM ABIEL Administration Ondansetron HCl 4 mg 08/19/22 08:30 08/19/22 09:08 Ondansetron Inj 4 Mg/2 Ml Vial IV PUSH 4 mg Q6H PRN Administration Nausea And Vomiting Oxycodone HCl 5 mg 08/19/22
--- NOTE | 2022-08-21 15:54 | PM.IMPN ---
Progress Note: A&P Assessment and Plan (1) Spontaneous pneumothorax: Code(s): J93.83 - Other pneumothorax Status: Acute Assessment and Plan: Patient presented with right-sided abdominal pain that radiated to the back, neck and shoulder. CT chest abdomen pelvis with spontaneous right-sided pneumothorax which could be related to ruptured right apical bleb associated with mild emphysema. Chest tube placed on 08/19/2022. General surgery consulted Management per General surgery Analgesics as needed. 08/21 patient has persistent leak in his chest tube. General surgery attempting to place water seal today. If pneumothorax is not resolve patient will possibly need transfer for Cardiothoracic surgery. See General surgery's notes. (2) Cirrhosis, alcoholic: Code(s): K70.30 - Alcoholic cirrhosis of liver without ascites Status: Chronic Assessment and Plan: Counseled on alcohol consumption cessation. offered the patient several resources. Restart patient's home medication of lactulose, spironolactone and furosemide. CT chest abdomen pelvis revealing cirrhosis with hepatic steatosis and portal venous hypertension including splenorenal collaterals and esophageal varices. CIWA Protocol initiated Transition to Librium 25 mg PRN for CIWA >8 P.r.n. Ativan for withdrawal and CIWA greater than 15 Thiamine 100 mg IV daily History of alcohol withdrawal and seizures. (3) Tobacco abuse disorder: Code(s): Z72.0 - Tobacco use Status: Chronic Assessment and Plan: Nicotine patch as needed. Smoking cessation discussed with the patient. (4) Seizure disorder: Code(s): G40.909 - Epilepsy, unspecified, not intractable, without status epilepticus Status: Chronic Assessment and Plan: Patient stated that he had gone without his Keppra for a couple days and was unable to get his medication refilled until yesterday. He believes that he did have a seizure in the time he was not taking it. Keppra restarted at 750 mg daily. Subjective Date/time seen: 08/21/22 15:54 Interval history: Patient is still having some chest wall tenderness on the right side. Attending to wean patient off of narcotics. General surgery managing chest tube. Patient denies worsening shortness of breath, nausea, vomiting, body aches and chills. Was in the room when Dr. Villavicencio spoke to the patient and the plan is to remove section and place a water seal. If water seal does not treat pneumo pt will need transfer for possible VATS. Review of Systems Review of Systems: All systems reviewed & are unremarkable except as noted in HPI and below Exam Narrative: GENERAL: Comfortable, no acute distress, very thin HENMT: moist mucous membranes EYES: EOM intact b/l NECK: no lymphadenopathy RESPIRATORY: Clear to auscultation CARDIO/ CHEST: RRR, chest tube placement on the right side with bandages clean and dry. GI: soft, right upper quadrant tenderness to palpation, bowel sounds present SKIN: [id number] petechiae and hemosiderin deposits EXTREMITIES: no edema, redness or tenderness Objective Data Vital Signs Vital Signs: Vital Signs - 24 hr 08/20/22 16:12 08/20/22 19:28 08/21/22 04:15 Temperature 98.6 F 98.4 F 98.2 F Pulse Rate 77 69 84 Respiratory Rate 18 20 20 Blood Pressure 115/73 120/70 125/61 Pulse Oximetry 100 97 97 Oxygen Delivery Oxygen Flow Rate 08/21/22 08:00 08/21/22 14:00 Temperature 98.8 F Pulse Rate 88 Respiratory Rate 20 Blood Pressure 126/77 Pulse Oximetry 100 100 Oxygen Delivery Nasal Cannula Oxygen Flow Rate 2 Intake/Output Intake/Output: Intake & Output 08/18/22 08/19/22 08/20/22 08/21/22 23:59 23:59 23:59 23:59 Intake Total 2120 4060 2065 Output Total 225 1325 1050 Balance 1895 1645 1015 Meds/Results Medications: Active Medications Generic Name Dose Route Start Last Admin
[2022-08-21 17:17] LABS: Glucose Point of Care 91 mg/dl (65-105)
[2022-08-21 21:44] VITALS: BP 128/88; PULSE 86; RESP 22; TEMP 36.9; O2SAT 96
[2022-08-22 00:02] LABS: Glucose Point of Care 119 mg/dl (65-105)
[2022-08-22] MEDS: oxyCODONE HCL (*CRX) 5 MG TAB IR PO ×2 (04:48→16:17)
[2022-08-22 05:49] LABS: Hematocrit 38.8 % (42.0-52.0); Hemoglobin 13.3 g/dL (14.0-18.0); Immature Platelet Fraction Pct 8.2 % (0.9-11.2); Mean Corpuscular HGB Conc 34.3 g/dl (32-36); Mean Corpuscular Hemoglobin 34.1 pg (26-34); Mean Corpuscular Volume 99.5 fl (80-100); Mean Platelet Volume 10.5 fl (7.4-10.4); Platelet Count Result 66 k/mm3 (150-375); Red Cell Distribution Width 13.1 % (11.5-14.5); White Blood Count 4.1 K/mm3 (4.5-10.0)
[2022-08-22] MEDS: HYDROmorphone HCL INJ (*CRX) 1 MG/ML SYR 0.5 MG IV PUSH ×3 (05:50→11:08)
[2022-08-22 06:00] VITALS: BP 127/80; PULSE 80; RESP 20; TEMP 36.9; O2SAT 97
[2022-08-22 06:00] LABS: Alanine Aminotransferase 60 U/L (6-50); Albumin Level 4.1 g/dL (3.5-5.1); Alkaline Phosphatase 93 U/L (38-126); Anion Gap 2 mmol/L (8-16); Aspartate Amino Transferase 85 U/L (17-59); Bilirubin,Total 1.2 mg/dL (0.2-1.3); Blood Urea Nitrogen 13 mg/dL (9-20); Calcium 8.9 mg/dL (8.4-10.2); Carbon Dioxide 30 mmol/L (22-30); Chloride 102 mmol/L (98-107); Estimated CRCL calculation 95 ml/min; Estimated Glomerular Filt Rate > 60; Glucose 89 mg/dL (65-110); Potassium 3.9 mmol/L (3.4-5.0); Sodium 134 mmol/L (137-145)
[2022-08-22] MEDS: THIAMINE HCL 200 MG/2 ML VIAL 100 MG IV PUSH (08:29)
[2022-08-22] MEDS: LACTULOSE 20 GM/30 ML UDC 10 GM PO (08:30)
[2022-08-22] MEDS: levETIRAcetam 250 MG TABLET 750 MG PO (08:30)
[2022-08-22] MEDS: NICOTINE (*PBKC) 21 MG PATCH 1 PATCH TRANSDERM (08:30)
[2022-08-22] MEDS: SPIRONOLACTONE 50 MG TABLET 100 MG PO (08:30)
[2022-08-22] MEDS: FUROSEMIDE 40 MG TABLET PO (08:31)
--- NOTE | 2022-08-22 11:05 | PM.PNGS ---
Progress Note: A&P Assessment and Plan (1) Spontaneous pneumothorax: Code(s): J93.83 - Other pneumothorax Status: Acute Assessment and Plan: Chest tube on water seal overnight and no longer having an air leak. Chest x-ray this morning showed no pneumothorax. Chest tube removed at the bedside this morning. Will repeat a chest x-ray in 4 hours to reassess. Plan I have discussed the patient's case and plan of care with Dr. Villavicencio. Subjective Subjective Date/Time Seen: 08/22/22 11:05 Patient reports: no new complaints Interval history: Patient feeling the same this morning. Still having pain at his chest tube site. No other new complaints. Denies shortness of breath or difficulty breathing. Chest tube has been on water seal since around 3:00 pm yesterday. Review of Systems Review of Systems: ROS unchanged Exam Const: General: no acute distress Orientation/consciousness: patient oriented x3 Chest: Chest palpation & inspection: no crepitus Resp: Effort & Inspection: normal respiratory effort Auscultation: clear to auscultation bilaterally Other: Right lateral chest tube on water seal. No air leak. CXR showed no pneumothorax. With the nurse at the bedside, I removed the suture and chest tube without any immediate complications and applied a sterile occlusive gauze dressing. Cardio: Rate: regular rate Rhythm: regular rhythm Psych: Mental Status: mental status grossly normal Objective Data Vital Signs Vital Signs: Vital Signs - 24 hr 08/21/22 14:00 08/21/22 21:44 08/22/22 06:00 Temperature 98.8 F 98.4 F 98.4 F Pulse Rate 88 86 80 Respiratory Rate 20 22 H 20 Blood Pressure 126/77 128/88 127/80 Pulse Oximetry 100 96 97 Intake/Output Intake/Output: Intake & Output 08/19/22 08/20/22 08/21/22 08/22/22 23:59 23:59 23:59 23:59 Intake Total 2120 4060 3425 360 Output Total 225 1325 2650 1000 Balance 1895 2735 715 -143 Meds/Results Medications: Active Medications Generic Name Dose Route Start Last Admin Trade Name Freq PRN Reason Stop Dose Admin Chlordiazepoxide HCl 25 mg 08/20/22 16:17 Chlordiazepoxide (*Crx) 25 Mg Capsule PO Q6HR PRN Alcohol Withdrawal Furosemide 40 mg 08/19/22 09:00 08/22/22 08:31 Furosemide 40 Mg Tablet PO 40 mg DAILY ABIEL Administration Hydromorphone HCl 0.5 mg 08/19/22 09:58 08/22/22 08:28 Hydromorphone Hcl Inj (*Crx) 1 Mg/Ml Syr IV PUSH 0.5 mg Q2H PRN Administration Pain Rated 7-10 Lactulose 10 gm 08/19/22 09:00 08/22/22 08:30 Lactulose 20 Gm/30 Ml Udc PO 10 gm QAM ABIEL Administration Levetiracetam 750 mg 08/19/22 09:00 08/22/22 08:30 Levetiracetam 250 Mg Tablet PO 750 mg DAILY ABIEL Administration Lorazepam 2 mg 08/19/22 08:30 Lorazepam Inj (*Crx) 2 Mg/Ml Vial IV PUSH Q4H PRN Withdrawal Menthol/Methyl Salicylate 1 applic 08/19/22 12:35 08/21/22 08:23 Menthol 10% / Methyl Salicylate 15% 57 Gm Tube TOPICAL 1 applic BID PRN Administration Muscle/Joint Pain Nicotine 1 patch 08/19/22 09:00 08/22/22 08:30 Nicotine (*Pbkc) 21 Mg Patch TRANSDERM 1 patch QAM ABIEL Administration Ondansetron HCl 4 mg 08/19/22 08:30 08/19/22 09:08 Ondansetron Inj 4 Mg/2 Ml Vial IV PUSH 4 mg Q6H PRN Administration Nausea And Vomiting Oxycodone HCl 5 mg 08/19/22 12:03 08/22/22 04:48 Oxycodone Hcl (*Crx) 5 Mg Tab Ir PO 5 mg Q6H PRN Administration Pain Rated 7-10 Polyethylene Glycol 17 gm 08/22/22 10:57 Polyethylene Glycol 3350 17 Gm Powd.Pack PO QAM PRN Constipation Spironolactone 100 mg 08/19/22 09:00 08/22/22 08:30 Spironolactone 50 Mg Tablet PO 100 mg DAILY ABIEL Administration Thiamine HCl 100 mg 08/19/22 09:00 08/22/22 08:29 Thiamine Hcl 200 Mg/2 Ml Vial IV PUSH 100 mg DAILY ABIEL Administration Radiology Results: ITS Impressions Chest/Abdomen/Pelvis CT 08/19/22 14:59 IMPRESSION:
[2022-08-22 12:21] LABS: Glucose Point of Care 109 mg/dl (65-105)
[2022-08-22] MEDS: polyethylene glycoL 3350 17 GM POWD.PACK PO (12:46)
--- NOTE | 2022-08-22 13:48 | PC.NURSE ---
pt refusing to use call light for assistance to the bathroom. RN educated pt on fall risk/precautions. Pt turning off his bed alarm. hospitalist notified.
[2022-08-22 14:00] VITALS: BP 111/72; PULSE 86; RESP 18; TEMP 37.3; O2SAT 99
--- NOTE | 2022-08-22 14:11 | PM.IMPN ---
Progress Note: A&P Assessment and Plan (1) Spontaneous pneumothorax: Code(s): J93.83 - Other pneumothorax Status: Acute Assessment and Plan: Patient presented with right-sided abdominal pain that radiated to the back, neck and shoulder. CT chest abdomen pelvis with spontaneous right-sided pneumothorax which could be related to ruptured right apical bleb associated with mild emphysema. Chest tube placed on 08/19/2022. General surgery consulted Management per General surgery Analgesics as needed. 08/21 Patient has persistent leak in his chest tube. General surgery attempting to place water seal. 08/22 Chest tube on water seal overnight and no longer having air leak. (2) Cirrhosis, alcoholic: Code(s): K70.30 - Alcoholic cirrhosis of liver without ascites Status: Chronic Assessment and Plan: Counseled on alcohol consumption cessation. offered the patient several resources. Restart patient's home medication of lactulose, spironolactone and furosemide. CT chest abdomen pelvis revealing cirrhosis with hepatic steatosis and portal venous hypertension including splenorenal collaterals and esophageal varices. CIWA Protocol initiated Transition to Librium 25 mg PRN for CIWA >8 P.r.n. Ativan for withdrawal and CIWA greater than 15 Thiamine 100 mg IV daily History of alcohol withdrawal and seizures. (3) Tobacco abuse disorder: Code(s): Z72.0 - Tobacco use Status: Chronic Assessment and Plan: Nicotine patch as needed. Smoking cessation discussed with the patient. (4) Seizure disorder: Code(s): G40.909 - Epilepsy, unspecified, not intractable, without status epilepticus Status: Chronic Assessment and Plan: Patient stated that he had gone without his Keppra for a couple days and was unable to get his medication refilled until yesterday. He believes that he did have a seizure in the time he was not taking it. Keppra restarted at 750 mg daily. Subjective Date/time seen: 08/22/22 14:11 Interval history: Patient continued to have drug-seeking behavior. General surgery has discontinued dilaudid for the patient. Patient continues to complain of chest pain. He denies nausea, vomiting, body aches and chills. Patient did threaten to leave AMA. Review of Systems Review of Systems: All systems reviewed & are unremarkable except as noted in HPI and below Exam Narrative: GENERAL: Comfortable, no acute distress, very thin HENMT: moist mucous membranes EYES: EOM intact b/l NECK: no lymphadenopathy RESPIRATORY:Clear to auscultation CARDIO/ CHEST: RRR, chest tube removed, bandages clean and dry. GI: soft, right upper quadrant tenderness to palpation, bowel sounds present SKIN: [id number] petechiae and hemosiderin deposits EXTREMITIES: no edema, redness or tenderness Objective Data Vital Signs Vital Signs: Vital Signs - 24 hr 08/21/22 21:44 08/22/22 06:00 08/22/22 08:00 Temperature 98.4 F 98.4 F Pulse Rate 86 80 Respiratory Rate 22 H 20 Blood Pressure 128/88 127/80 Pulse Oximetry 96 97 Oxygen Delivery Room Air Intake/Output Intake/Output: Intake & Output 08/19/22 08/20/22 08/21/22 08/22/22 23:59 23:59 23:59 23:59 Intake Total 2120 4060 3425 360 Output Total 225 1325 2650 1000 Balance 1895 2735 775 -640 Meds/Results Medications: Active Medications Generic Name Dose Route Start Last Admin Trade Name Freq PRN Reason Stop Dose Admin Chlordiazepoxide HCl 25 mg 08/20/22 16:17 Chlordiazepoxide (*Crx) 25 Mg Capsule PO Q6HR PRN Alcohol Withdrawal Furosemide 40 mg 08/19/22 09:00 08/22/22 08:31 Furosemide 40 Mg Tablet PO 40 mg DAILY ABIEL Administration Lactulose 10 gm 08/19/22 09:00 08/22/22 08:30 Lactulose 20 Gm/30 Ml Udc PO 10 gm QAM ABIEL Administration Levetiracetam 750 mg 08/19/22 09:00 08/22/22 08:30 Levetiracetam 250 Mg T
--- NOTE | 2022-08-22 16:28 | PM.DS ---
DS: Admitting Diagnosis Discharge Date 08/22/22 Admitting Diagnosis spontaneous pneumothorax DS: Discharge Diagnosis Discharge Diagnosis (1) Spontaneous pneumothorax: Code(s): J93.83 - Other pneumothorax Status: Acute Assessment and Plan: Patient presented with right-sided abdominal pain that radiated to the back, neck and shoulder. CT chest abdomen pelvis with spontaneous right-sided pneumothorax which could be related to ruptured right apical bleb associated with mild emphysema. Chest tube placed on 08/19/2022. General surgery consulted Management per General surgery Analgesics as needed. 08/21 Patient has persistent leak in his chest tube. General surgery attempting to place water seal. 08/22 Chest tube on water seal overnight and no longer having air leak. pt cleared for discharge. (2) Cirrhosis, alcoholic: Code(s): K70.30 - Alcoholic cirrhosis of liver without ascites Status: Chronic Assessment and Plan: Counseled on alcohol consumption cessation. offered the patient several resources. Restart patient's home medication of lactulose, spironolactone and furosemide. CT chest abdomen pelvis revealing cirrhosis with hepatic steatosis and portal venous hypertension including splenorenal collaterals and esophageal varices. CIWA Protocol initiated Transition to Librium 25 mg PRN for CIWA >8 P.r.n. Ativan for withdrawal and CIWA greater than 15 Thiamine 100 mg IV daily History of alcohol withdrawal and seizures. (3) Tobacco abuse disorder: Code(s): Z72.0 - Tobacco use Status: Chronic Assessment and Plan: Nicotine patch as needed. Smoking cessation discussed with the patient. (4) Seizure disorder: Code(s): G40.909 - Epilepsy, unspecified, not intractable, without status epilepticus Status: Chronic Assessment and Plan: Patient stated that he had gone without his Keppra for a couple days and was unable to get his medication refilled until yesterday. He believes that he did have a seizure in the time he was not taking it. Keppra restarted at 750 mg daily. DS: Summary Hospital Course Hospital Course: this is a 46-year-old male with a past medical history of alcoholic cirrhosis, alcohol abuse, drug abuse, tobacco abuse, and seizure disorder that presented to the ED on 08/19/2022 with chief complaint of a right sided abdominal pain that radiates to the back, neck and shoulder.?The radiating pain to the back, neck and shoulder all right-sided.? He does have associated shortness of breath with this pain that is worse with exertion. Patient did admit to drinking about a pint and a half prior to ED arrival and he said that he was drinking due to the amount of pain he was in.? Further questioning revealed patient has been on a 3 week Fri[place] of alcohol intoxication and drinks approximately a pint and a half of vodka and or whiskey daily.? Patient states that he has had withdrawal before and is unsure whether he has had seizure withdrawal or the seizures were due to his seizure disorder that he has had since he has been a child.? He also has a history of IV drug use and opiate abuse although according to him, he has been clean for [address] chest abdomen pelvis performed revealing significant right-sided pneumothorax.?Patient's pneumothorax is suspected to be spontaneous.? Patient did not report any traumatic events such as blunt force trauma or falls. Chest tube was placed by ER physician and General surgery was consulted to manage chest tube.? general surgery manage chest tube throughout hospitalization. See General surgery notes. Chest tube was removed on 08/22/2022 a repeat chest x-ray 4 hours after did not reveal any pneumothorax. Per General surgery he was cleared for discharge. CIWA protocol initiated and patient placed on scheduled Librium due to extent of alcohol abuse. Patient did not experience any withdrawal. Libriu
--- NOTE | 2022-08-22 17:52 | PC.NURSE ---
Pt had 2 knives in the safe from yesterday. RN called security to hand knives to pt and walk down with pt when getting discharged from the hospital.
== END 2022-08-22 17:30 | disposition home or self-care (01) | DRG 143 ==
LOC: ANHED 23:14 → ANH3MED 08-19 04:00
PROVIDERS: Admitting Provider Internal Medicine; Emergency Provider Preventive Medicine Aerospace Medicine; PCP Family Medicine; Visit Provider Internal Medicine Critical Care Medicine
DX: J93.83 Other pneumothorax (principal); K70.30 Alcoholic cirrhosis of liver without ascites; F10.20 Alcohol dependence, uncomplicated; F11.90 Opioid use, unspecified, uncomplicated; G40.909 Epilepsy, unspecified, not intractable, without status epilepticus; F17.210 Nicotine dependence, cigarettes, uncomplicated; F12.90 Cannabis use, unspecified, uncomplicated; F15.90 Other stimulant use, unspecified, uncomplicated
CPT/HCPCS: 32551; 36415; 71045; 71260; 74177; 80048; 80053; 80061; 80076; 81001; 81003; 82140; 82607; 82746; 82948; 83690; 83735; 84443; 84484; 85025; 85027; 85055; 93005; 96374; 96375; 96376; 99285; A9270; C1729; G0378; G0379; J1170; J1885; J2250; J2270; J2405; J3411; J7042; Q9967

== ENCOUNTER 2023-01-18 17:46 | Emergency (ER) | payer OTHER, SELFPAY ==
--- NOTE | ~2023-01-18 | XR_ITS ---
EXAMINATION: XR tibia fibula LT 2V INDICATION: Left leg pain TECHNIQUE: Two views of the left tibia and fibula are obtained on four radiographs. COMPARISON: None available FINDINGS: No fracture, dislocation, or subluxation. The bones and joint spaces are normal. There is l ateral soft tissue swelling of ankle. IMPRESSION: 1. No acute osseous abnormality. Reviewed, dictated and finalized at location F.
[2023-01-18 17:48] VITALS: BP 113/70; PULSE 110; RESP 16; TEMP 37.1; O2SAT 98
--- NOTE | 2023-01-18 18:43 | ED.WOUNDLAC ---
HPI - Wound/Laceration General Chief Complaint: Wound/Laceration Stated Complaint: L liu wound from sledgehammer Time Seen by Provider: 01/18/23 18:23 History of Present Illness HPI narrative: Patient is a 47-year-old male with history of liver cirrhosis here with an injury to his left liu. He states that he was using a sledgehammer for work yesterday and hit his left liu with full force. He notes that at home he was icing it and he became concerned that maybe had a blood clot in his leg so he came in for evaluation. He denies any wound to his leg. Notes that he has have some swelling over his liu. He is not taking anything for the pain at home as he has been advised in the past to not take ibuprofen or Tylenol due to his renal and liver failure. No personal history of PE/DVT. No fever or chills. Related Data Home Medications Medication Instructions Recorded Confirmed lactulose 10 gram/15 mL oral 15 ml PO DAILY 08/08/22 08/19/22 solution spironolactone 100 mg tablet 100 mg PO DAILY 08/08/22 08/19/22 furosemide 40 mg tablet 40 mg PO DAILY 08/19/22 08/19/22 Allergies Allergy/AdvReac Type Severity Reaction Status Date / Time Penicillins Allergy Intermediate Unknown Verified 10/10/22 10:25 acetaminophen AdvReac Other Verified 10/10/22 10:25 ibuprofen AdvReac Unknown Verified 10/10/22 10:25 Review of Systems Review of Systems: CONSTITUTIONAL: Denies fever, chills, or sweats. CARDIOVASCULAR: Denies chest pain, palpitations, or edema. RESPIRATORY: Denies cough or dyspnea. GASTROINTESTINAL: Denies abdominal pain, nausea, vomiting, or diarrhea. GENITOURINARY: Denies dysuria or hematuria. SKIN: Denies rash or itching. MUSCULOSKELETAL: left liu pain. Denies back pain, joint pain, or myalgia. NEUROLOGIC: Denies headache, numbness, or weakness. [facility] Past Medical History Medical History Alcohol abuse Ascites (~11/2020) Chronic low back pain Cirrhosis, alcoholic Migraines Seizure disorder Tobacco abuse disorder Surgical History Surgical History History of exploratory laparotomy (~1992) With partial large and small bowel resection and partial liver resection due to trauma Status post open reduction with internal fixation of fracture (~2001) Left humerus Family History Family History Mother Lupus (systemic lupus erythematosus) Depression Family history of type 2 diabetes mellitus COPD (chronic obstructive pulmonary disease) Gall bladder disease Cancer Daughter Schizophrenia Sibling DVT (deep venous thrombosis) Father Alcoholism Cancer Depression Grandparent Alcoholism Breast cancer Social History Social History Social History: He currently lives with his fiancee of 2 years. He has 4 children. Patient currently smokes 1 pack of cigarettes daily and has smoked for the past 35 years. Up until approximately 1 year ago patient smoke 2 and half packs a day. He started smoking at age 14. He drinks a 5th of vodka or whiskey a day. He reports experimenting with IV drug use and opiate abuse. He states that he has been clean for approximately 3 years. He still smokes marijuana currently. Primary care physician: Dr. Jonathan Maria Smoking packs per day: 1 Smoking cigarettes per day: 20.0 Years smoked: 31 Smoking pack-years: 31.00 Smoking status: Current every day smoker Tobacco type: cigarettes and cigars Smokeless tobacco user: chewing tobacco Second hand tobacco smoke exposure: Yes Alcohol intake: current Drinks per week: 10 Substance use: current Substance use type: marijuana, opiates, methamphetamine and prescription drug Other substance usage details: fentanyl, vicodin, methamphetamines(Former use) In recovery Last use: 2 yrs Lack
[2023-01-18] MEDS: oxyCODONE HCL (*CRX) 5 MG TAB IR BY MOUTH (19:28)
[2023-01-18 19:31] VITALS: BP 134/85; PULSE 78; RESP 14; O2SAT 99
== END 2023-01-18 19:33 | disposition home or self-care (01) ==
PROVIDERS: Emergency Provider Student in an Organized Health Care Education/Training Program; PCP Family Medicine
DX: S80.12XA Contusion of left lower leg, initial encounter (principal); G40.909 Epilepsy, unspecified, not intractable, without status epilepticus; K70.30 Alcoholic cirrhosis of liver without ascites; F10.10 Alcohol abuse, uncomplicated; F17.210 Nicotine dependence, cigarettes, uncomplicated; F17.220 Nicotine dependence, chewing tobacco, uncomplicated; F17.290 Nicotine dependence, other tobacco product, uncomplicated; Z90.49 Acquired absence of other specified parts of digestive tract; W27.8XXA Contact with other nonpowered hand tool, initial encounter
CPT/HCPCS: 73590; 99283; A9270

== ENCOUNTER 2023-04-30 09:26 | Emergency (ER) | payer OTHER, SELFPAY ==
--- NOTE | ~2023-04-30 | CT_ITS ---
EXAMINATION: CT abdomen pelvis w con DATE: 04/30/2023 12:03 INDICATION: Diarrhea. Low abdominal pain. TECHNIQUE: Computed tomography (CT) of the abdomen and pelvis was performed with 100 mL Omnipaque 350 intravenous contrast. Automated exposure control and iterative reconstruction technique were employe d. The dose-length product was 235.37 mGy-cm. COMPARISON: CT abdomen and pelvis 08/19/2022 FINDINGS: The visualized portions of the lung bases demonstrate mild atelectasis. A calcified right l venus nodule is consistent with old granulomatous disease. No pleural effusion. The heart size is tamar l. No pericardial effusion. There is wall thickening of the distal esophagus, likely interstitial kelly ma. There is nodular liver surface contour, consistent with cirrhosis. Paraesophageal varices are not ed. There is a splenorenal portacaval shunt. Periumbilical varices are noted. There is mild splenomeg clifton. The gallbladder, pancreas, adrenal glands, and left kidney are normal. There is a 7 mm cyst in r ight kidney. There are no dilated loops of bowel. The appendix is normal. There are no pathologically enlarged lymph nodes. There is no free intraperitoneal fluid. There is moderate lumbar spondylosis. IMPRESSION: 1. Cirrhosis of the liver with portal venous hypertension. Reviewed, dictated and finalized at location A. [employer]
[2023-04-30 10:22] VITALS: BP 122/73; PULSE 88; RESP 18; TEMP 36.1; O2SAT 100
[2023-04-30 10:39] LABS: Basophils Absolute Auto 0.1 K/mm3 (0.0-0.1); Basophils Percent Auto 0.8 % (0.2-1.2); Eosinophils Absolute Auto 0.2 K/mm3 (0-0.3); Hematocrit 39.7 % (42.0-52.0); Hemoglobin 12.7 g/dL (14.0-18.0); Immature Granulocyte Absolute 0.01 K/mm3 (0.00-0.031); Immature Granulocyte Percent A 0.2 % (0-0.5); Lymphocytes Absolute Auto 0.88 K/mm3 (0.9-3.2); Lymphocytes Percent Auto 14.6 % (18.3-44.2); Mean Corpuscular Hemoglobin 32.2 pg (26-34); Mean Corpuscular Volume 100.5 fl (80-100); Mean Platelet Volume 10.3 fl (7.4-10.4); Monocytes Absolute Auto 0.9 K/mm3 (0.1-0.6); Monocytes Percent Auto 14.5 % (2.6-8.5); Neutrophils Percent Auto 66.9 % (45.5-73.1); Platelet Count Result 183 k/mm3 (150-375); Red Blood Count 3.95 M/mm3 (4.6-6.20); Red Cell Distribution Width 13.1 % (11.5-14.5)
--- NOTE | 2023-04-30 10:49 | ED.GENADULT ---
HPI - General Adult General Chief complaint: Nausea/Vomiting/Diarrhea <Darshana Bradford August, PAGE [employer] OPERATOR - Last Filed: 04/30/23 10:54> Stated complaint: diarrhea <Darshana Bradford August, PAGE [employer] OPERATOR - Last Filed: 04/30/23 10:54> Time Seen by Provider: 04/30/23 16:16 <Darshana Bradford August, PAGE [employer] OPERATOR - Last Filed: 04/30/23 10:54> History of Present Illness HPI narrative: Boom Saravia is a 47 y/o male with PMhx of cirrhosis of the liver/ htn/ seizures he also states that he had part of colon removed and part of small intestine removed in 1991 - who presents with reports of having severe diarrhea for the past 4 days. He states that he usually takes lactulose to help move his bowels but now his diarrhea is water for 4 days, reports lower middle abdominal pain off and on for the past few days. No fever/chills/ <Darshana Bradford August, PAGE [employer] SYSTEM OPERATOR - Last Filed: 04/30/23 10:54> Boom Saravia is a 47 y/o male with PMhx of cirrhosis of the liver/ htn/ seizures he also states that he had part of colon removed and part of small intestine removed in 1991 - who presents with reports of having severe diarrhea for the past 4 days. He states that he usually takes lactulose to help move his bowels but now his diarrhea is water for 4 days, reports lower middle abdominal pain off and on for the past few days. No fever/chills/ Patient has been taking lactulose at home for his liver disease. Symptoms began shortly after he took an extra dose of lactulose due to constipation. no blood in stool. He has had his Keppra increased to 1000 mg twice a day but that was couple months back and likely is not causing his diarrhea . patient also takes Suboxone. <Robin Escobedo MD - Last Filed: 04/30/23 18:06> Related Data Home medications: Home Medications Medication Instructions Recorded Confirmed lactulose 10 gram/15 mL oral 15 ml PO DAILY 08/08/22 08/19/22 solution spironolactone 100 mg tablet 100 mg PO DAILY 08/08/22 08/19/22 furosemide 40 mg tablet 40 mg PO DAILY 08/19/22 08/19/22 <Darshana Bradford August, PAGE [employer]UP SYSTEM OPERATOR - Last Filed: 04/30/23 10:54> Allergies/adverse reactions: Allergies Allergy/AdvReac Type Severity Reaction Status Date / Time Penicillins Allergy Intermediate Unknown Verified 10/10/22 10:25 acetaminophen AdvReac Other Verified 10/10/22 10:25 ibuprofen AdvReac Unknown Verified 10/10/22 10:25 <Darshana Gunn, PAGE [employer]UP SYSTEM OPERATOR - Last Filed: 04/30/23 10:54> Review of Systems Review of Systems: All systems reviewed & are unremarkable except as noted in HPI and below <Robin Escobedo MD - Last Filed: 04/30/23 18:06> Constitutional: Constitutional: Denies chills, Reports fatigue and Denies fever(s) <Robin Escobedo MD - Last Filed: 04/30/23 18:06> ENT: Reports system reviewed and no additional complaints, except as documented <Robin Escobedo MD - Last Filed: 04/30/23 18:06> Cardiovascular: Cardiovascular: Reports no additional cardiovascular complaints <Robin Escobedo MD - Last Filed: 04/30/23 18:06> Respiratory: Respiratory: Reports no additional respiratory complaints <Robin Escobedo MD - Last Filed: 04/30/23 18:06> Gastrointestinal: Gastrointestinal: Reports abdominal pain, Reports bloating, Reports diarrhea, Denies nausea and Denies vomiting <Robin Escobedo MD - Last Filed: 04/30/23 18:06> Musculoskeletal: Musculoskeletal: Reports no additional musculoskeletal complaints <Robin Escobedo MD - Last Filed: 04/30/23 18:06> Integumentary/Breasts: Skin/Breast: Reports system reviewed and no additional complaints, except as docu <Robin Escobedo MD - Last Filed: 04/30/23 18:06> [facility] Past Medical History Medical History: Medical History Alcohol abuse Ascites (~11/2020) Chronic low back pain Cirrhosis, alcoholic Migraines Seizure disorder Tobacco abuse disorder <Darshana Gunn APRN - Last Filed: 04/30/23 10:54> Surgical History Surgical History: Surgical History (Driss
[2023-04-30 10:55] LABS: Alanine Aminotransferase 83 U/L (6-50); Albumin Level 4.3 g/dL (3.5-5.1); Alkaline Phosphatase 146 U/L (38-126); Anion Gap 10 mmol/L (8-16); Aspartate Amino Transferase 133 U/L (17-59); Bilirubin,Total 2.1 mg/dL (0.2-1.3); Blood Urea Nitrogen 15 mg/dL (9-20); Calcium 9.5 mg/dL (8.4-10.2); Carbon Dioxide 24 mmol/L (22-30); Chloride 101 mmol/L (98-107); Estimated CRCL calculation 94 ml/min; Estimated Glomerular Filt Rate > 60; Glucose 105 mg/dL (65-110); Lipase 65 U/L (23-300); Potassium 4.3 mmol/L (3.4-5.0); Sodium 135 mmol/L (137-145)
[2023-04-30 12:52] LABS: Appearance Urine Cloudy (Clear); Bacteria Urine None Seen /hpf; Bilirubin Urine 1+ (Negative); Blood Urine Negative (Negative); Color Urine Dark Yellow (Yellow); Glucose Urine UA Negative (Negative); Hyaline Casts Urine Present /lpf; Ketones Urine Negative (Negative); Leukocyte Esterase Ur Negative LEU/UL (Negative); Mucus Urine Present /lpf; Nitrate Urine Negative (Negative); Protein Urine Negative (Negative); RBC Urine 0-2 /hpf (0-2); Specific Grav Ur 1.017 (1.001-1.035); Squamous Epithelial Cell Urine None seen /hpf (Few); Urobilinogen Urine 0.2 mg/dL (<2.0); WBC Urine 0-5 /hpf; pH Urine 5.5 (5.0-9.0)
[2023-04-30 12:55] LABS: Add Urine Microscopic? YES
[2023-04-30 16:10] VITALS: PULSE 72; RESP 15; O2SAT 100
[2023-04-30 16:11] VITALS: BP 143/108; PULSE 73; RESP 16; O2SAT 100
[2023-04-30 16:14] VITALS: BP 143/108; PULSE 70; RESP 20; O2SAT 100
[2023-04-30] MEDS: SODIUM CHLORIDE 0.9% IV 1,000 ML 999 ML IV CONT (17:01)
--- NOTE | 2023-04-30 18:15 | PC.NURSE ---
Crisis called for patient transportation upon discharge. Reached at [phone]. States they will be here shortly to pick him up.
[2023-04-30 18:17] VITALS: BP 109/68; PULSE 70; RESP 20; O2SAT 100
== END 2023-04-30 18:34 | disposition home or self-care (01) ==
PROVIDERS: Emergency Provider Emergency Medicine; PCP Family Medicine
DX: K52.9 Noninfective gastroenteritis and colitis, unspecified (principal); I10 Essential (primary) hypertension; K74.60 Unspecified cirrhosis of liver; G40.909 Epilepsy, unspecified, not intractable, without status epilepticus; Z90.49 Acquired absence of other specified parts of digestive tract; F17.200 Nicotine dependence, unspecified, uncomplicated; F17.290 Nicotine dependence, other tobacco product, uncomplicated; F17.220 Nicotine dependence, chewing tobacco, uncomplicated
CPT/HCPCS: 36415; 74177; 80053; 81001; 83690; 85025; 96360; 99284; J7030; Q9967

== ENCOUNTER 2023-05-02 08:49 | Observation (INO) | payer OTHER, SELFPAY ==
[2023-05-02] VITALS (8 sets, daily range): BP systolic 104–132; BP diastolic 64–78; PULSE 69–90; RESP 18; TEMP 36.4–37.1; O2SAT 94–100
[2023-05-02 09:19] LABS: Basophils Absolute Auto 0.1 K/mm3 (0.0-0.1); Eosinophils Absolute Auto 0.2 K/mm3 (0-0.3); Eosinophils Percent Auto 3.8 % (0-4.4); Hematocrit 37.5 % (42.0-52.0); Hemoglobin 12.4 g/dL (14.0-18.0); Immature Granulocyte Absolute 0.01 K/mm3 (0.00-0.031); Immature Granulocyte Percent A 0.2 % (0-0.5); Lymphocytes Absolute Auto 1.05 K/mm3 (0.9-3.2); Mean Corpuscular HGB Conc 33.1 g/dl (32-36); Mean Corpuscular Hemoglobin 32.3 pg (26-34); Mean Corpuscular Volume 97.7 fl (80-100); Mean Platelet Volume 10.2 fl (7.4-10.4); Monocytes Absolute Auto 0.7 K/mm3 (0.1-0.6); Monocytes Percent Auto 14.9 % (2.6-8.5); Neutrophils Absolute Auto 2.8 K/mm3 (1.3-6.7); Neutrophils Percent Auto 58.1 % (45.5-73.1); Platelet Count Result 177 k/mm3 (150-375); Red Blood Count 3.84 M/mm3 (4.6-6.20); Red Cell Distribution Width 12.9 % (11.5-14.5); White Blood Count 4.8 K/mm3 (4.5-10.0)
[2023-05-02 09:31] LABS: Alanine Aminotransferase 70 U/L (6-50); Alkaline Phosphatase 180 U/L (38-126); Anion Gap 9 mmol/L (8-16); Aspartate Amino Transferase 114 U/L (17-59); Bilirubin,Total 2.1 mg/dL (0.2-1.3); Blood Urea Nitrogen 15 mg/dL (9-20); Calcium 9.1 mg/dL (8.4-10.2); Carbon Dioxide 24 mmol/L (22-30); Chloride 102 mmol/L (98-107); Estimated CRCL calculation 99 ml/min; Estimated Glomerular Filt Rate > 60; Glucose 96 mg/dL (65-110); Lipase 96 U/L (23-300); Potassium 3.9 mmol/L (3.4-5.0); Sodium 135 mmol/L (137-145)
[2023-05-02 09:32] LABS: Add Urine Microscopic? NO; Appearance Urine Clear (Clear); Blood Urine Negative (Negative); Color Urine Yellow (Yellow); Glucose Urine UA Negative (Negative); Ketones Urine Negative (Negative); Nitrate Urine Negative (Negative); Protein Urine Negative (Negative); pH Urine 5.5 (5.0-9.0)
[2023-05-02 09:33] LABS: Bilirubin Urine Negative (Negative); Leukocyte Esterase Ur Negative LEU/UL (Negative); Urobilinogen Urine 0.2 mg/dL (<2.0)
--- NOTE | 2023-05-02 12:14 | ED.ABDPAIN ---
HPI - Abdominal Pain General Chief Complaint: Abdominal Pain Stated Complaint: abd pain Time Seen by Provider: 05/02/23 08:55 Source: patient Mode of arrival: EMS Limitations: no limitations History of Present Illness HPI narrative: 47-year-old with a history of cirrhosis of the liver, seizure disorder here with complaints of severe abdominal pain associated with the diarrhea. He denies any fever or chills. Patient states that he was seen on 04/30/2023 in the ER had lab work, CT scan. Since that time he was discharged from the ER he has been having nonstop diarrhea. He denied any blood in the stool , pain has improved slightly l once he got into the ER . No history of fever or chills. He is on daily lactulose MD elicited complaint: abdominal pain Pertinent past history: other (Cirrhosis of the liver, seizure disorder) Pain Consistency: constant Location: diffuse Quality: cramping Radiation: none Migration to: no migration Exacerbating factors: nothing Relieving factors: nothing Associated symptoms: denies other symptoms Related Data Home Medications Medication Instructions Recorded Confirmed lactulose 10 gram/15 mL oral 15 ml PO DAILY 08/08/22 08/19/22 solution spironolactone 100 mg tablet 100 mg PO DAILY 08/08/22 08/19/22 furosemide 40 mg tablet 40 mg PO DAILY 08/19/22 08/19/22 Allergies Allergy/AdvReac Type Severity Reaction Status Date / Time Penicillins Allergy Intermediate Unknown Verified 10/10/22 10:25 acetaminophen AdvReac Other Verified 10/10/22 10:25 ibuprofen AdvReac Unknown Verified 10/10/22 10:25 Review of Systems Review of Systems: All systems reviewed & are unremarkable except as noted in HPI and below Constitutional: Constitutional: Reports no additional constitutional complaints Eyes: Eyes: Reports no additional eye complaints ENT: Reports system reviewed and no additional complaints, except as documented Cardiovascular: Cardiovascular: Reports no additional cardiovascular complaints Respiratory: Respiratory: Reports no additional respiratory complaints Gastrointestinal: Gastrointestinal: Reports as per HPI Musculoskeletal: Musculoskeletal: Reports no additional musculoskeletal complaints Integumentary/Breasts: Skin/Breast: Reports system reviewed and no additional complaints, except as docu Neurologic: Reports system reviewed and no additional complaints, except as documented PMFSH Past Medical History Medical History Alcohol abuse Ascites (~11/2020) Chronic low back pain Cirrhosis, alcoholic Migraines Seizure disorder Tobacco abuse disorder Surgical History Surgical History History of exploratory laparotomy (~1992) With partial large and small bowel resection and partial liver resection due to trauma Status post open reduction with internal fixation of fracture (~2001) Left humerus Family History Family History Mother Lupus (systemic lupus erythematosus) Depression Family history of type 2 diabetes mellitus COPD (chronic obstructive pulmonary disease) Gall bladder disease Cancer Daughter Schizophrenia Sibling DVT (deep venous thrombosis) Father Alcoholism Cancer Depression Grandparent Alcoholism Breast cancer Social History Social History Social History: He currently lives with his fiancee of 2 years. He has 4 children. Patient currently smokes 1 pack of cigarettes daily and has smoked for the past 35 years. Up until approximately 1 year ago patient smoke 2 and half packs a day. He started smoking at age 14. He drinks a 5th of vodka or whiskey a day. He reports experimenting with IV drug use and opiate abuse. He states that he has been clean for approximately 3 years. He still smokes marijuana currently. Primary care physician
[2023-05-02] MEDS: SODIUM CHLORIDE 0.9% IV 1,000 ML 150 ML IV CONT (12:32)
[2023-05-02] MEDS: ONDANSETRON INJ 4 MG/2 ML VIAL IV PUSH (12:39)
[2023-05-02] MEDS: MORPHINE SULFATE (*CRX) 4 MG/ML INJ IV PUSH ×3 (12:39→17:33)
--- NOTE | 2023-05-02 14:14 | ADMGEN ---
This patient, Boom Saravia, was admitted to 3 [facility] Surg Room 314-01. Patient/family oriented to hospital policies and general routines including ID bracelet, bed and alarms, visiting hours, pain management, procedures, bathroom and other care routines, personal items, smoking policy, room service/diet, and visiting hours. Information on how to activate the Rapid Response Team has been discussed. Patient/Family are encouraged to report perceived risks to care and to ask questions if they do not understand what they are told or what they should do.
--- NOTE | 2023-05-02 19:09 | PM.IMHP ---
H&P: HPI History of Present Illness Date/Time: 05/02/23 19:09 Chief Complaint: Abdominal pain and diarrhea Narrative: Pt is a 47-year-old male with a past medical history of cirrhosis due to alcohol, seizures, and opioid addiction on Suboxone who presented emergency room for diarrhea and abdominal pain. Patient states this explosive diarrhea started 6 days ago. The 1st day he had about 3 or 4 episodes that was waking him up at night. This increased to having multiple diarrhea episodes every hour. This got worse and he came to the emergency room and was discharged. He did not feel any better today so he came back to be evaluated. He did mention that he took an Imodium today so he is now only had 6 bowel movements so far. They are still liquid any still having diffuse abdominal pain. He does take lactulose but started 3 years ago and he has not had any change in dosage he has not had any sick contacts, any recent travel, or any history of C diff. last seizure was about a month and a half ago and he takes Keppra and his dose was changed recently to a 1000 mg b.i.d. and he has been taking this dose for 3 weeks. He has been on tramadol in the past but has not taken it for about a month. He is currently at chest not for withdrawal. He is eating and drinking okay without any nausea or vomiting. He felt like he was a little feverish today but denies any other times where he felt like he had a fever. He denies chest pain and shortness of breath. He quit drinking alcohol but continues to smoke cigarettes. Review of Systems Review of Systems: All systems reviewed & are unremarkable except as noted in HPI and below PMFSH Past Medical History Medical History Alcohol abuse Ascites (~11/2020) Chronic low back pain Cirrhosis, alcoholic Migraines Seizure disorder Tobacco abuse disorder Surgical History Surgical History History of exploratory laparotomy (~1992) With partial large and small bowel resection and partial liver resection due to trauma Status post open reduction with internal fixation of fracture (~2001) Left humerus Family History Family History Mother Lupus (systemic lupus erythematosus) Depression Family history of type 2 diabetes mellitus COPD (chronic obstructive pulmonary disease) Gall bladder disease Cancer Daughter Schizophrenia Sibling DVT (deep venous thrombosis) Father Alcoholism Cancer Depression Grandparent Alcoholism Breast cancer Social History Social History (Updated 05/02/23 @ 19:20 by Rose Mary Saxena PA-C) Social History: Patient no longer drinks alcohol and smokes 1 pack per day. He is on Suboxone at chest not. He would like to be a full code Smoking packs per day: 0.25 Smoking cigarettes per day: 5.0 Years smoked: 31 Smoking pack-years: 7.75 Smoking status: Current every day smoker Smokeless tobacco user: chewing tobacco Second hand tobacco smoke exposure: Yes Alcohol intake: current Drinks per week: 10 Substance use: current Substance use type: marijuana, opiates, methamphetamine and prescription drug Other substance usage details: fentanyl, vicodin, methamphetamines(Former use) In recovery Last use: 37 days ago Do You Feel Safe in your Home?: Yes Lack of Transportation: YES Lack of Food: Sometimes True Current Housing: I Have Housing Concerned About Future Housing: No Difficulty Paying Gas/Electric Bills: No Difficulty Paying for Meds: No Currently Unemployed: No Education: Trade/Vocational Certificate Difficulty w/ Childcare or Family Care: No Living arrangements: with friend(s) Additional living arrangements comments: Girlfriend Occupation/Education: unemployed Gender identity (if verbalized by the patient): Male Sexual Orientation (if V
[2023-05-02] MEDS: levETIRAcetam 500 MG TABLET 1000 MG PO (20:52)
[2023-05-02] MEDS: BUPRENORPHINE/NALOXONE (*CRX) 4 MG/1 MG SL FILM 2 EACH SUBLINGUAL (20:53)
[2023-05-03] VITALS: BP 140/54; PULSE 71; RESP 18; TEMP 37.1; O2SAT 100
[2023-05-03 04:00] VITALS: BP 92/47; PULSE 64; RESP 18; TEMP 37.1; O2SAT 99
[2023-05-03 06:21] LABS: Basophils Absolute Auto 0.1 K/mm3 (0.0-0.1); Basophils Percent Auto 0.9 % (0.2-1.2); Eosinophils Absolute Auto 0.1 K/mm3 (0-0.3); Eosinophils Percent Auto 2.6 % (0-4.4); Hematocrit 37.6 % (42.0-52.0); Hemoglobin 12.5 g/dL (14.0-18.0); Immature Granulocyte Absolute 0.01 K/mm3 (0.00-0.031); Immature Granulocyte Percent A 0.2 % (0-0.5); Lymphocytes Absolute Auto 1.45 K/mm3 (0.9-3.2); Lymphocytes Percent Auto 27.2 % (18.3-44.2); Mean Corpuscular HGB Conc 33.2 g/dl (32-36); Mean Corpuscular Hemoglobin 32.7 pg (26-34); Mean Corpuscular Volume 98.4 fl (80-100); Mean Platelet Volume 10.3 fl (7.4-10.4); Monocytes Absolute Auto 0.6 K/mm3 (0.1-0.6); Monocytes Percent Auto 11.8 % (2.6-8.5); Neutrophils Absolute Auto 3.1 K/mm3 (1.3-6.7); Neutrophils Percent Auto 57.3 % (45.5-73.1); Platelet Count Result 186 k/mm3 (150-375); Red Blood Count 3.82 M/mm3 (4.6-6.20); Red Cell Distribution Width 12.7 % (11.5-14.5); White Blood Count 5.3 K/mm3 (4.5-10.0)
[2023-05-03 06:31] LABS: Anion Gap 7 mmol/L (8-16); Blood Urea Nitrogen 12 mg/dL (9-20); Calcium 8.6 mg/dL (8.4-10.2); Carbon Dioxide 26 mmol/L (22-30); Chloride 103 mmol/L (98-107); Estimated CRCL calculation 99 ml/min; Estimated Glomerular Filt Rate > 60; Glucose 78 mg/dL (65-110); Potassium 3.5 mmol/L (3.4-5.0); Sodium 136 mmol/L (137-145)
[2023-05-03 07:04] LABS: Atypical Lymphocytes Present; Hypochromasia 1+ (NORMAL); Platelet Estimate Adequate (Adequate); Schistocytes None Seen (NORMAL)
[2023-05-03 08:00] VITALS: BP 110/66; PULSE 82; RESP 18; TEMP 36.6; O2SAT 100
[2023-05-03] MEDS: levETIRAcetam 500 MG TABLET 1000 MG PO (08:05)
[2023-05-03] MEDS: BUPRENORPHINE/NALOXONE (*CRX) 4 MG/1 MG SL FILM 2 EACH SUBLINGUAL (08:05)
[2023-05-03] MEDS: FUROSEMIDE 40 MG TABLET PO (08:05)
[2023-05-03] MEDS: THIAMINE HCL 100 MG TABLET PO (08:05)
[2023-05-03] MEDS: SPIRONOLACTONE 50 MG TABLET 100 MG PO (08:05)
[2023-05-03] MEDS: NICOTINE (*PBKC) 21 MG PATCH 1 PATCH TRANSDERM (08:13)
[2023-05-03 08:46] LABS: Influenza A QL RT-PCR Negative (Negative); Influenza B QL RT-PCR Negative (Negative); SARS-CoV-2 RNA PCR Negative (Negative)
[2023-05-03] MEDS: NEOMYCIN/POLYMYXIN/BACITRACIN OINTMENT PACKET 1 PACKET TOPICAL (11:29)
[2023-05-03] MEDS: MAGNESIUM OXIDE 400 MG TABLET PO (11:29)
--- NOTE | 2023-05-03 11:35 | PM.DS ---
DS: Admitting Diagnosis Discharge Date 05/03/2023 Admitting Diagnosis ABD pain/diarrhea DS: Discharge Diagnosis Discharge Diagnosis (1) Diarrhea: Qualifiers: Diarrhea type: unspecified type Qualified Code(s): R19.7 - Diarrhea, unspecified Code(s): R19.7 - Diarrhea, unspecified Status: Acute (2) Cirrhosis, alcoholic: Qualifiers: Ascites presence: unspecified Qualified Code(s): K70.30 - Alcoholic cirrhosis of liver without ascites Code(s): K70.30 - Alcoholic cirrhosis of liver without ascites Status: Chronic (3) Seizure disorder: Code(s): G40.909 - Epilepsy, unspecified, not intractable, without status epilepticus Status: Chronic (4) Portal hypertension: Code(s): K76.6 - Portal hypertension Status: Acute (5) Chronic pain: Qualifiers: Chronic pain type: other chronic pain Qualified Code(s): G89.29 - Other chronic pain Code(s): G89.29 - Other chronic pain Status: Acute DS: Summary Hospital Course Reason for hospitalization: Diarrhea with ABD pain Hospital Course: Pt is a 47-year-old male with a past medical history of cirrhosis due to alcohol, seizures, and opioid addiction on Suboxone who presented emergency room for diarrhea and abdominal pain.? Patient states this explosive diarrhea started 6 days ago.? The 1st day he had about 3 or 4 episodes that was waking him up at night.? This increased to having multiple diarrhea episodes every hour.? This got worse and he came to the emergency room and was discharged.? He did not feel any better today so he came back to be evaluated.? He did mention that he took an Imodium today so he is now only had 6 bowel movements so far.? They are still liquid any still having diffuse abdominal pain.? He does take lactulose but started 3 years ago and he has not had any change in dosage he has not had any sick contacts, any recent travel, or any history of C diff. last seizure was about a month and a half ago and he takes Keppra and his dose was changed recently to a 1000 mg b.i.d. and he has been taking this dose for 3 weeks.? He has been on tramadol in the past but has not taken it for about a month.? He is currently at chest not for withdrawal.? He is eating and drinking okay without any nausea or vomiting.? He felt like he was a little feverish today but denies any other times where he felt like he had a fever.? He denies chest pain and shortness of breath.? He quit drinking alcohol but continues to smoke cigarettes. Diarrhea and abdominal pain has been going on for 6 days but seems to be improving today since being hospitalized -he had a CT of his abdomen and pelvis 2 days ago and since symptoms are improving, no need to repeat -slight pain to palpation, no acute abdomen suspected -no sick contacts, no recent travel outside the [place], no history of C diff. Since he is improving and a normal white blood cell count, no need for C diff testing or other stool testing at this time. Patient with overall improvement to ABD pain and diarrhea has subsided, spoke with patient who reported he was seizure free when taking his Keppra 750mg ER daily and had a seizure after 5 days of not having it since then a previous provider increased his Keppra and his has had stomach issues and diarrhea since. Decreased patient Keppra back to 750mg ER daily and patient informed he will need a referral to neurology as soon as one can be established. Labs and vitals reviewed and stable for discharge. Patient was discharged with mom back the [facility]. Status at Discharge Functional status at discharge: independent ambulation Time Spent with Patient Time attestation: Total time spent providing and/or coordinating discharge services: Time spent: Greater than 30 minutes Exam Narrative: Physical Exam: - GENERAL: Alert and oriented x 3. No acute distress. Cachectic. - EYES: EOMI. No scleral icterus. PERRLA. - H
== END 2023-05-03 12:05 | disposition home or self-care (01) ==
LOC: ANHED 12:20 → ANH3MEDSUR 13:28
PROVIDERS: Nurse Practitioner Family; Admitting Provider Family Medicine; Emergency Provider Family Medicine; Visit Provider Internal Medicine
DX: R19.7 Diarrhea, unspecified (principal); K70.30 Alcoholic cirrhosis of liver without ascites; G40.909 Epilepsy, unspecified, not intractable, without status epilepticus; K76.6 Portal hypertension; G89.29 Other chronic pain; M54.50 Low back pain, unspecified; Z23 Encounter for immunization; Z20.822 Contact with and (suspected) exposure to COVID-19; F17.210 Nicotine dependence, cigarettes, uncomplicated; F10.10 Alcohol abuse, uncomplicated; F11.20 Opioid dependence, uncomplicated; F12.90 Cannabis use, unspecified, uncomplicated; Z81.1 Family history of alcohol abuse and dependence
CPT/HCPCS: 36415; 80048; 80053; 81003; 83690; 85025; 87636; 90471; 90686; 96374; 96375; 99285; A9270; G0008; G0378; G0379; J2270; J2405; J7030

== ENCOUNTER 2023-11-11 09:23 | Emergency (ER) | payer OTHER, SELFPAY ==
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
[2023-11-11 09:27] VITALS: BP 124/66; PULSE 65; RESP 12; TEMP 36.8; O2SAT 100
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
== END 2023-11-11 11:30 | disposition home or self-care (01) ==
PROVIDERS: Emergency Provider Emergency Medicine; PCP Family Medicine
DX: S42.251A Displaced fracture of greater tuberosity of right humerus, initial encounter for closed fracture (principal); V00.831A Fall from motorized mobility scooter, initial encounter; F17.210 Nicotine dependence, cigarettes, uncomplicated
CPT/HCPCS: 73030; 73200; 99284; A4565